=== PATIENT | female | born 1950 | race Caucasian/White ===

== ENCOUNTER 2020-10-13 23:09 | Emergency (ER) | payer MEDICARE, SELFPAY ==
--- NOTE | ~2020-10-13 | XR_ITS ---
EXAMINATION: XR LUMBOSACRAL SPINE CLINICAL INFORMATION: Fall. Pain in the lumbar and coccyx area. COMPARISON: None TECHNIQUE: Three views of the lumbosacral spine. FINDINGS: There is no fracture or subluxation. Vertebral body height and alignment is maintained. Mild disc space narrowing at the lower lumbar spine. Small endplate osteophytes throughout with multilevel facet arthropathy. The sacroiliac joints are symmetric. The visualized portion of the sacrum appears intact. The bowel gas pattern is unremarkable. XR/XR lumbar spine 2-3V IMPRESSION: No fracture or malalignment. Mild to moderate multilevel degenerative changes.
[2020-10-14 00:20] VITALS: BP 152/74; PULSE 107; RESP 18; TEMP 37.6; O2SAT 94; BMI 43.2
--- NOTE | 2020-10-14 00:57 | ED_ITS ---
HPI - Fall General Chief Complaint: Fall Stated Complaint: falling Time Seen by Provider: 10/14/20 00:36 Source: patient Mode of arrival: EMS Limitations: no limitations History of Present Illness HPI Narrative: Patient comes to emergency room complaining of a fall. Patient states her carpet at home is very slippery, patient states she landed on her left side. Did not hit her head, no loss of consciousness, she is not on a blood thinners. Patient complaining of pain in the lumbar area and coccyx. Patient states she was able to turn on her abdomen, get on her knees and crawl but she was unable to get up, therefore called EMS. Patient denies chest pain, no shortness of breath. Related Data Allergies Allergy/AdvReac Type Severity Reaction Status Date / Time alcohol [ALCOHOL] Allergy Intermediate RUBBING Unverified 05/11/20 16:49 ALCOHOL/ UNKNOWN metformin [METFORMIN] Allergy Intermediate DIARRHEA Unverified 05/11/20 16:49 pollen extracts [POLLEN] Allergy Intermediate HEADACHES Unverified 05/11/20 16:49 carisoprodol [From Soma] Allergy Mild HIVES Unverified 05/11/20 16:49 erythromycin base Allergy Unknown UNKNOWN Unverified 05/11/20 16:49 [ERYTHROMYCIN BASE] OYSTERS Allergy Intermediate UNKNOWN Uncoded 05/11/20 16:49 Review of Systems Review of Systems: Constitutional : No Weight loss, No Fever, No Chills, No Night Sweats, No Fatigue, No Malaise ENT/Mouth : No Hearing loss, No Ear Pain, No Nasal Congestion, No Sinus Pain, No Hoarseness, No sore throat, No Rhinorrhea, No Swallowing Difficulty Eyes: No Eye Pain, No Swelling, No Redness, No Foreign Body, No Discharge, No Vision Changes Cardiovascular : No Chest Pain, No SOB, No Dyspnea on Exertion, No Orthopnea, No Edema, No Palpitations Respiratory : No Cough, No Sputum, No Wheezing, No Smoke Exposure, No Dyspnea Gastrointestinal : No Nausea, No Vomiting, No Diarrhea, No Constipation, No abdominal Pain, No Hematochezia, No Melena Genitourinary : no irregular bleeding, No Dysuria, No Urinary Frequency, No Hematuria, No Urinary Incontinence, No Urgency, No Flank Pain, No Urinary Flow Changes, No Hesitancy Musculoskeletal : Complaining of pain in the lumbar area and coccyx, knee pain from crawling Skin : No Skin Lesions, No rash Neuro : No Weakness, No Numbness, No Paresthesias, No Loss of Consciousness, No Dizziness, No Headache Psych : No Anxiety/Panic, No Depression, No SI/HI/AH/VH, No Social Issues, Heme/Lymph: No Bruising, No Bleeding,No Lymphadenopathy Endocrine : No Polyuria, No Polydipsia, No Temperature Intolerance [facility] Past Medical History Medical History (Updated 10/14/20 @ 01:56 by Guerda Shepherd MD) Diabetes Social History Social History Advance Directives: No Physical Exam Vital Signs: Vital Signs: Last Vital Signs Temp 99.7 F 10/14/20 00:20 Pulse 107 H 10/14/20 00:20 Resp 18 10/14/20 00:20 BP 152/74 H 10/14/20 00:20 Pulse Ox 94 10/14/20 00:20 Body Mass Index 43.2 Appearance: Alert. Oriented X3. No acute distress. Eyes: Pupils equal, round and reactive to light. ENT: Pharynx normal. Neck: Normal inspection. Neck supple. No lymph nodes noted. No crepitus CVS: Normal heart rate and rhythm. Pulses normal. Normal S1 and S2 Respiratory: No respiratory distress. Breath sounds normal. No Wheezing. No rales Abdomen: Soft and nontender. No rigidity. No distention. 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 Normal skin color. Normal skin turgor. Extremities: No lower extremity edema. Pain is able to flex and extend bilateral hips and knees. Patient has a chronic rotator cuff injury on the left side. Neuro: Oriented X 3. No motor deficit. No sensory deficit. Moving all extermities. No slurred speech. Course Course Course Narrative: Patient was able to walk to the bathroom unassisted, x-ray negative for fractures. Patient states she has enough pain medication in its at home and does not require prescription. MDM - Fall Lab Data Labs: Lab Results 10/14/20 Range/Units 01:38 POC Glucose 158 H (60-115) mg/dL Imaging Data Lumbar x-ray: Radiologist's impression: There is no fracture or subluxation. Vertebral body height and alignment is maintained. Mild disc space narrowing at the lower lumbar spine. Small endplate osteophytes throughout with multilevel facet arthropathy. The sacroiliac joints are symmetric. The visualized portion of the sacrum appears intact. The bowel gas pattern is unremarkable. XR/XR lumbar spine 2-3V IMPRESSION: No fracture or malalignment. Mild to moderate multilevel degenerative changes. Discharge Plan Discharge Clinical Impression: Fall Qualifiers: Encounter type: initial encounter Qualified Code(s): W19.XXXA - Unspecified fall, initial encounter Lumbar contusion Qualifiers: Encounter type: initial encounter Qualified Code(s): S30.0XXA - Contusion of lower back and pelvis, initial encounter Patient Disposition: Home, Self-Care Instructions: Contusion in Adults (ED) Additional Instructions: Please follow-up with your primary care physician tomorrow. If you have any worsening or new symptoms, please return to the emergency room or call 911
[2020-10-14 01:42] LABS: Glucose, Whole Blood 158 mg/dL (60-115)
[2020-10-14] MEDS: traMADoL HCL 50 MG TABLET PO (02:13)
== END 2020-10-14 03:37 | disposition home or self-care (01) ==
PROVIDERS: Emergency Provider Emergency Medicine; PCP Internal Medicine
DX: S30.0XXA Contusion of lower back and pelvis, initial encounter (principal); W01.0XXA Fall on same level from slipping, tripping and stumbling without subsequent striking against object, initial encounter; Y93.89 Activity, other specified; Y92.019 Unspecified place in single-family (private) house as the place of occurrence of the external cause; Y99.9 Unspecified external cause status
CPT/HCPCS: 72100; 82947; 99283

== ENCOUNTER 2024-10-06 14:59 | Outpatient (AMB) | payer MEDICARE, SELFPAY ==
--- NOTE | 2024-10-06 15:00 | A.OFFVIS_ITS ---
Vital Signs 10/06/24 15:04 Height 5 ft 5 in Weight 242 lb 8.136 oz BMI 40.4 BP 186/84 H Blood Pressure Location Rt brachial Position Sitting Pulse 88 Intake Visit Reasons: Consult, liver cirrosis Intake Note: Alysha presents in the office as a follow up liver cirrhosis. CC: She states that she just had CT scans done and she was told that she has a beginning stages of cirrhosis - she states that she has never drank and when she had her gall bladder removed her labs were abnormal but now she is concerned of her liver. Physician General Practice Required: No Allergies alcohol [ALCOHOL] Allergy (Intermediate, Unverified 10/06/24 15:04) RUBBING ALCOHOL/ UNKNOWN metformin [METFORMIN] Allergy (Intermediate, Unverified 10/06/24 15:04) DIARRHEA pollen extracts [POLLEN] Allergy (Intermediate, Unverified 10/06/24 15:04) HEADACHES carisoprodol [From Soma] Allergy (Mild, Unverified 10/06/24 15:04) HIVES erythromycin base [ERYTHROMYCIN BASE] Allergy (Unknown, Unverified 10/06/24 15:04) UNKNOWN OYSTERS Allergy (Intermediate, Uncoded 10/06/24 15:04) UNKNOWN HPI Comments Details: The patient is a 74-year-old woman with a 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 Here for elevated LFTs and abnormal imaging of the liver. Pt herself does nt have any symptoms to include abdominal pain, nausea, vomiting. Has good appetite. No unintentional weight loss recently. 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 Sister with HCV due to IVDU - . Has known DM, most recent A1c 7.2. has HLD on rosuvastatin. In terms of recent adrenal met, she was determined to be a high risk for surgical resection and she received stereotactic radiation in June 2024. The adrenal lesion has decreased in size and she has no other evidence of active atypical carcinoid tumor. [facility] Medical History (Updated 10/20/24 @ 17:47 by Gricelda Robledo MD) Diabetes Surgical History (Updated 10/06/24 @ 15:04 by SAMMY Melchor) Hx of colonoscopy History of esophagogastroduodenoscopy (EGD) Review of Systems Const All systems reviewed & are unremarkable except as noted in HPI and below Physical Exam Vital Signs: Last Vital Signs Pulse 88 10/06/24 15:04 BP 186/84 H 10/06/24 15:04 BMI result Body Mass Index 40.4 No apparent distress Nonicteric Abdomen soft, nondistended, palpable hepatomegaly Alert and oriented x3, normal gait Assessment & Plan Assessment & Plan (1) Elevated LFTs: Code(s): R79.89 - Other specified abnormal findings of blood chemistry Category: Medical (2) Hepatomegaly: Code(s): R16.0 - Hepatomegaly, not elsewhere classified (3) Carcinoid tumor: Code(s): D3A.00 - Benign carcinoid tumor of unspecified site Category: Medical Plan Reviewed with the patient that will need workup for evaluation of chronic liver disease. We will also get dedicated ultrasound. Given her underlying history of carcinoid tumor, low threshold to obtain biopsy if below workup negative. Plan: -labs as below -ultrasound abdomen -follow-up in 4-6 weeks Orders: Orders Complete Blood Count no Diff 10/06/24 - Other specified abnormal findings of blood chemistry Ferritin 10/06/24 - Other specified abnormal findings of blood chemistry Hemoglobin A1c 10/06/24 - Other specified abnormal findings of blood ch emistry Hepatitis A IgG 10/06/24 - Other specified abnormal findings of blood chemistry Hepatitis B Core Antibody 10/06/24 - Other specified abnormal findings of blood chemistry Hepatitis B Surface Antibody 10/06/24 - Other specified abnormal findings of blood chemistry Hepatitis C Antibody 10/06/24 - Other specified abnormal findings of blood chemistry HIV Ab/Ag 10/06/24 - Other specified abnormal findings of blood chemistry Immunoglobulin A 10/06/24 - Other specified abnormal findings of blood chemistry Immunoglobulin G 10/06/24 - Other specified abnormal findings of blood chemistry Phosphatidylethanol, Blood 10/06/24 - Other specified abnormal findings of blood chemistry Transglutaminase IgA 10/06/24 - Other specified abnormal findings of blood chemistry TSH reflex Free T4 10/06/24 - Other specified abnormal findings of blood chemistry Alpha 1 Anti-trypsin 10/06/24 - Other specified abnormal findings of blood chemistry US abdomen complete 10/06/24 - Other specified abnormal findings of blood chemistry INDER Reflex Titer and Pattern 10/06/24 - Other specified abnormal findings of blood chemistry Ceruloplasmin 10/06/24 - Other specified abnormal findings of blood chemistry Comprehensive Met. Panel 10/06/24 - Other specified abnormal findings of blood chemistry Gamma Glutamyl Transpeptidase 10/06/24 - Other specified abnormal findings of blood chemistry Hepatitis B Surface Antigen 10/06/24 - Other specified abnormal findings of blood chemistry IRON PROFILE 10/06/24 - Other specified abnormal findings of blood chemistry Lipid Panel 10/06/24 - Other specified abnormal findings of blood chemistry Liver Kidney Microsomal Ab 10/06/24 - Other specified abnormal findings of blood chemistry Mitochondrial Antibody 10/06/24 - Other specified abnormal findings of blood chemistry Smooth Muscle Antibody 10/06/24 - Other specified abnormal findings of blood chemistry Coding Level of Care Code New Pt Level 5 (42401) Complex EM visit Add On G2211 Diagnoses Elevated LFTs Hepatomegaly R16.0 Carcinoid tumor D3A.00
[2024-10-06 15:04] VITALS: BP 186/84; PULSE 88; BMI 40.4
--- OUTSIDE RECORDS SUMMARY | 2024-10-06 16:09 | XMS_ITS ---
Author Organization 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 Generated for Printi ng/Baldemarg/eTransmitting on:?10/06/2024 04:09 PM EST
--- OUTSIDE RECORDS SUMMARY | 2024-10-06 16:09 | XMS_ITS ---
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 Name Role Phone Jose Mahmood MD Primary Care Provider Nelda Louise [phone] Encounters Encounter Location Date Provider Diagnosis [address] [address] 07/21/2024 Nelda Dumont Plan Of Treatment Next Appt Details Provider Name:Mackenzie barnard, 10/22/2024 12:15:00 PM, [address] [place], [address], Progress Notes * Olivia DAVISh LDOB:1949 (74 yo F)Acc No.[id number]:07/21/2024 Progress Note Patient:?Alysha DAVIS Provider:?Nelda Dumont DPM :1950???Age:74 Y???Sex:Female D ate:07/21/2024 Address:[address] [place] [address], [place], [place] Pcp:Jose Mahmood MD Subjective: * Chief Complaints: * ??? * Medical History:? Objective: * Vitals:? Assessment: Plan: * Treatment: * Images: * The named appointment provid er may or may not be the originator of this progress note, and it is not deemed complete until electronically signed by the appointment provider. Sign off status: Pending * Provider:?Nelda Dumont DPM Date:?1 09/20/2023 Generated for Mulugeta gudino/Josi/Bharat on:?10/06/2024 04:09 PM EST
--- OUTSIDE RECORDS SUMMARY | 2024-10-06 16:09 | XMS_ITS ---
[facility] Address [address] [place] [address] Care Team Providers Care Seasonal Warehouse Associate Name Role Phone Jose Mahmood MD Primary Care Provider Nelda Louise Unavailable [phone] Allergies Allergen (clinical drug ingredient) Drug/Non Drug Allergy documented on EMR Reaction Allergy Type Onset Date Status animals (uncoded) Unknown Allergy Ac tive erythromycin Erythromycin vomit Drug Allergy A ctive metformin Metformin HCl Unknown Drug Allergy Act ar Oyster Shell hives Drug Allergy Acti ve Seasonale Unknown Drug Allergy Active carisoprodol Soma hives Drug Allergy Acti ve Alcohol hives Drug Allergy Active REASON FOR VISIT At Risk Footcare Medications Medication SIG (Take, Route, Frequency, Duration) Notes Start Date End Date Status glipiZIDE ER 10 MG Orally Once a day Active Furosemide Active Losartan Potassium 100 MG 1 tablet Orall y Once a day for 30 day(s) Active Gabapentin 100 MG 4 capsules Orally three times a day Active Metoprolol Succinate ER 25 MG 1 tablet Orally Once a day for 30 day(s) Active oxyCODONE-Acetaminophen 5-325 MG 1 tablet as needed Orally every 6 hrs Active Tresiba 100 UNIT/ML as directed Active Montelukast Sodium 10 MG 1 tablet Orally Once a day for 30 day(s) Active albuterol Active Allopurinol 300 MG 1 tablet Orally Once a day for 30 day(s) Active Prochlorperazine Maleate 10 MG 1 tablet Orally Three times a day for 30 day(s) Not-Taking Doxycycline Monohydrate 100 MG 1 capsule Orally Once a day for 10 days Not-Taking Doxycycline Hyclate 100 MG 1 capsule Ora lly Once a day for 10 day(s) Not-Taking Breztri Aerosphere A ctive Extra Depth Diabetic Shoes with 3 Pair Custom heat-molded multi-density innersoles for 1 year Dx: Active Pantoprazole Sodium 40 MG 1 tablet Orall y Once a day for 30 day(s) Not-Taking Brexanolone Not-Taki ng NovoLIN N 100 UNIT/ML as directed Subcutaneous Not-Taking LORazepam 0.5 MG 1 tablet as needed Orally every 6 hrs Not-Taking HYDROcodone-Acetaminophen 5-325 MG 1 tablet as needed Orally every 6 hrs Not-Taking Rosuvastatin Calcium 5 MG 1 tablet Orall y Once a day for 30 day(s) Active Night Splint AFO - L1930 as directed Not-Taking Social History Tobacco Use: Social History Observation Description Date Details (start date - stop date) Never Smoker NA - NA Tobacco Use/Smoking Question Answer Notes Are you a: nonsmoker Additional Findings: Tobacco Non-User Current no n-smoker Alcohol Screen Question Answer Notes Did you have a drink containing alcohol in the p ast year? No Points 0 Interpretation Negative Tobacco use other than smoking: Question Answer Notes Are you an other tobacco user? No Problems Problem Type SNOMED Code ICD Code Onset Dates Problem Status W/U Status Risk Notes Problem Polyneuropathy due to diabetes mellitus type I (926081816) Type 1 diabetes mellitus with diabetic polyneuropathy (E10.42) Active confirmed Vital Signs Height 5ft 5in in 08/05/2024 Weight 245 lbs 08/05/2024 BMI 40.77 kg/m2 08/05/2024 Procedures Procedure Date Ordered Date Performed Result Body Sit e 19622-WOFLSZQ NAIL, 6 OR MORE 08/05/2024 N/A 48661-IUEW SKIN LESIONS, OVER 4 08/05/2024 N/A Encounters Encounter Location Date Provider Diagnosis [facility] [address] [place] [address] 08/05/2024 Nelda Dumont Type 2 diabetes mellitus with diabetic polyneuropathy E11.42 and Tinea unguium B35.1 Assessments Encounter Date Diagnosis (ICD Code) Assessment Notes Treatment Notes Treatment Clinical Notes Section Notes 08/05/2024 Type 2 diabetes mellitus with diabetic polyneuropathy (ICD-10 - E11.42) 08/05/2024 Tinea unguium (ICD-10 - B35.1) Plan Of Treatment Pending Test Test Name Order Date [id number]-FOPGZUL NAIL, 6 OR MORE 08/05/2024 23782-WGYZ SKIN LESIONS, OVER 4 08/05/20 24 Next Appt Details Follow Up: prn, Reason: Provider Name:Mackenzie Barnard Vaibhav barnard, 10/22/2024 12:15:00 PM, [address] [place] [address], [id number], Procedure Notes * Category Sub-Category Detail Notes Debride Nail 6-10 Nail debridement Due to the cl inical pathology outlined in the exam findings, performance of this nail treatment is medically necessary as its management by an unskilled/untrained nonprofessional would put this patients foot and overall health at risk. Therefore, debridement to affected nail(s), as described in exam (T9, T8, T7, T6, T4, T3, T2, T1 ), was performed exclusively by the physician of record to reduce/remove overall nail length, girth, thickness, subungual debris, and necrotic tissue, by manual and/or electrical means through the use of a nail nipper and/or dremel-type miter grinder operator, to a more viable healthy nail plate or bed tissue 6-10 nails in total. Silver nitrate was used for any petechial bleeding as necessary. Definitive antifungal treatment options, both pharmaceutical and surgical, have been reviewed and discussed with the patient. The patient solely prefers the use of intermittent/as needed professional debridement services for their nail condition and understands the need for additional periodic treatments to maintain effectiveness in symptomatic relief - 79910 Keratoma Treatment Parring or Cutting o f Benign Hyperkeratotic Lesion(s) (-57) More than 4 Lesions - Due to the at risk nature of the patients medical condition as documented in the exam findings, performance of this keratoderma treatment is medically necessary as its management by an unskilled/untrained nonprofessional would put this patients foot and overall health at risk. Therefore, the benign hyperkeratotic lesions, ( 6) in total, locations as stated and described in the exam ( medial IPJ TA, T5, plantar heels B/L, sub 1st 5th metatarsal head B/L), were pared, and/or cut utilizing a sterile 15 blade, tissue nippers, and/or power dremel instrumentation by the physician of record - [id number] Progress Notes * Alysha DAVIS LDOB:1949 (74 yo F)Acc No.[id number]:08/05/2024 Progress Note Patient:Alysha SANTANA Provider:?Nelda Dumont DPM :1950???Age:74 Y???Sex:Female D ate:08/05/2024 Address:[address] [place], [place] [id number] Pcp:Jose Mahmood MD Subjective: * Chief Complaints: * ???At Risk Footcare * HPI: ???At Risk footcare:?Pt States Last PCP Visit:?Date?08/05/2024 * ROS:?General/Constitutional:?Nausea?denies.?Vomiting?denies.?Hunger Thirst?denies.?Loss appetite?denies.?Chills?denies.?Fatigue?denies.?Fever?denies.?Night Sweats?denies.?Unexplained weight loss?denies.?Unexplained weight gain?denies.?HEENTM:?Dentures?denies.?Dizziness?denies.?Glasses/contacts?denies.?Retinopathy?de nies.?Blurred/double vision?denies.?TMJ?denies.?Discharge/drainage?denies.?Implants?denies.?Sore throat?denies.?Dental implants?denies.?Hard of hearing ?denies.?Difficulty chewing/swallowing/speaking?denies.?Nose bleeds?denies.?Sore mouth?denies.?Respiratory:?On Oxygen?denies.?Pneumonia/pleurisy?denies.?Bronchitis?denies.?Emphysema?denies.?C oughing?denies.?Cough blood?denies.?Shortness of breath?denies.?Wheezing?denies.?Cardiovascular:?Pacemaker?denies.?MVP?denies.?WPW?denies.?CHF?denies.?Heart attack?denies.?Septal defect?denies.?Rapid beat?denies.?Chest pain ?denies.?Atrial Fib.?denies.?Murmur/Palpitations?denies.?Gastrointestinal:?Hemorrhoids?denies.?Stomach/Abdominal pain?denies.?Dark blood stool?denies.?Irritable bowel ?denies.?Constipation?denies.?Diarrhea?denies.?Hematology:?Swelling?denies.?Clots?denies.?Varicose Veins?denies.?Bruising?denies.?Bleeding problem?denies.?Genitourinary:?Blood urine?denies.?Frequent/Painfu/urination/bladder control?denies.?Kidney stones?denies.?Infection (UTI)?denies.?Nephropathy?denies.?sex trans dis (STD)?denies.?Prostate?denies.?Musculoskeletal:?Hammertoes?denies.?Bunions?denies.?Back Pain?denies.?Muscle Cramps/ Resting?denies.?Muscle cramps / walking?denies.?Generalized aches and pains?denies.?Weakness?denies.?Integ.:?Kay?denies.?Scars?denies.?Corns/calluses?denies.?Ingrown nails?admits.?Painful nails?denies.?Open Sores?denies.?Rashes?denies.?Neurologic:?Difficulty sleeping?denies.?Brain disorder?denies.?Numbness?denies.?Balance trouble?denies.?Confusion?denies.?Fainting/blackouts?denies.?Tingling?denies.?Tr emors?denies.? * Medical History:? * Surgical History:?back surge ry L4-5 1980shattered left ankle 1990pins removed 1991gall bladder 2003kidney procedure 2012neck plate and screws 2012right rotator cuff 2013kidney procedure 2016xecptic 2016left kidney removed 14471 back surgeries 2017right upper lung removed 2017bone growth removed upper and lower jaw 2019biopsy of chest 2019right hand carpal tunnel 2019porta cath 2019chemo radiation 2019Severs antibiotic therapy 2019tens untit placement spinal stem shoulder replacement Carple tunnel 06/25/2022 * Hospitalization/Major Diagno stic Procedure:?[facility] night stay 10/13/2020 * Family History:?Mother: yola tello?Father: alive, diagnosed with Unspecified essential hypertension, Unspecified heart disease, Unspecified cerebral artery occlusion with cerebral infarction.? * Social History:?Tobacco Use:?Tobacco Use/Smoking?Are you a:?nonsmoker ?Additional Findings: Tobacco Non-User?Current non-smoker ?Tobacco use other than smoking?Are you an other tobacco user??No ???Drugs/Alcohol:?Drugs?Have you used drugs other than those for medical reasons in the past 12 months??No ?Alcohol Screen?Did you have a drink containing alcohol in the past year??No ?Points?0 ?Interpretation?Negative ???Miscellaneous:?Caffeine: yes, frequency:, 2-3 cups per day. ?Children: no. ?Exercise: no. ?Marital status: single. 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 * Medications:?TakingExtra Dep th Diabetic Shoes with 3 Pair Custom heat-molded multi-density innersoles for 1 year Dx: Breztri Aerosphere Tresiba 100 UNIT/ML Solution as directed oxyCODONE-Acetaminophen 5-325 MG Tablet 1 tablet as needed Orally every 6 hrs Montelukast Sodium 10 MG Tablet 1 tablet Orally Once a day Allopurinol 300 MG Tablet 1 tablet Orally Once a day albuterol Furosemide glipiZIDE ER 10 MG Tablet Extended Release 24 Hour Orally Once a day Gabapentin 100 MG Capsule 4 capsules Orally three times a day Losartan Potassium 100 MG Tablet 1 tablet Orally Once a day Metoprolol Succinate ER 25 MG Tablet Extended Release 24 Hour 1 tablet Orally Once a day Rosuvastatin Calcium 5 MG Tablet 1 tablet Orally Once a day Taking Extra Depth Diabetic Shoes with 3 Pair Custom heat-molded multi-density innersoles for 1 year Dx: Taking Breztri Aerosphere Taking Tresiba 100 UNIT/ML Solution as directed Taking oxyCODONE-Acetaminophen 5-325 MG Tablet 1 tablet as needed Orally every 6 hrs Taking Montelukast Sodium 10 MG Tablet 1 tablet Orally Once a day Taking Allopurinol 300 MG Tablet 1 tablet Orally Once a day Taking albuterol Taking Furosemide Taking glipiZIDE ER 10 MG Tablet Extended Release 24 Hour Orally Once a day Taking Gabapentin 100 MG Capsule 4 capsules Orally three times a day Taking Losartan Potassium 100 MG Tablet 1 tablet Orally Once a day Taking Metoprolol Succinate ER 25 MG Tablet Extended Release 24 Hour 1 tablet Orally Once a day Taking Rosuvastatin Calcium 5 MG Tablet 1 tablet Orally Once a day Not-Taking/PRNNight Splint AFO - L1930 as directed Brexanolone NovoLIN N 100 UNIT/ML Suspension as directed Subcutaneous HYDROcodone-Acetaminophen 5-325 MG Tablet 1 tablet as needed Orally every 6 hrs LORazepam 0.5 MG Tablet 1 tablet as needed Orally every 6 hrs Pantoprazole Sodium 40 MG Tablet Delayed Release 1 tablet Orally Once a day Prochlorperazine Maleate 10 MG Tablet 1 tablet Orally Three times a day Doxycycline Hyclate 100 MG Capsule 1 capsule Orally Once a day Doxycycline Monohydrate 100 MG Capsule 1 capsule Orally Once a day Medication List reviewed and reconciled with the patientNot-Taking/PRN Night Splint AFO - L1930 as directed Not-Taking/PRN Brexanolone Not-Taking/PRN NovoLIN N 100 UNIT/ML Suspension as directed Subcutaneous Not-Taking/PRN HYDROcodone-Acetaminophen 5-325 MG Tablet 1 tablet as needed Orally every 6 hrs Not-Taking/PRN LORazepam 0.5 MG Tablet 1 tablet as needed Orally every 6 hrs Not-Taking/PRN Pantoprazole Sodium 40 MG Tablet Delayed Release 1 tablet Orally Once a day Not-Taking/PRN Prochlorperazine Maleate 10 MG Tablet 1 tablet Orally Three times a day Not-Taking/PRN Doxycycline Hyclate 100 MG Capsule 1 capsule Orally Once a day Not-Taking/PRN Doxycycline Monohydrate 100 MG Capsule 1 capsule Orally Once a day Medication List reviewed and reconciled with the patient * Allergies:?Erythromycin: vom itOyster Shell: hivesSoma: hivesMetformin HClanimalsSeasonaleAlcohol: hivesyes[Allergies Verified] Objective: * Vitals:?Ht: 5ft 5in, Wt:245, BMI:40.77, Shoe size: 10-11, BS: 135, Ht-cm: 165.1 cm, Wt-k.13 kg. * Examination: ???Ophthalmology Referral: ?DIABETES EYE EXAM?Neurological: ?SENSORY:? Neurological exam demonstrates, reduced light touch sensation, reduced sharp/dull pin prick discrimination , B/L, 5.07 monofilament test performed at plantar aspects of 5 varied sites per foot shows sensation, reduced , B/L.?Nails: ?NAILS are:?Elongated, overgrown, dystrophic, lytic, greater than 3mm thick, discolored and friable with crumbly malodorous subungual debris, T9, T8, T7, T6, T4, T3, T2, T1.?Dermatologic: ?SKIN FINDINGS:?Skin exam reveals Keratotic lesion(s) located at medial IPJ TA, T5, plantar heels B/L, sub 1st 5th metatarsal head B/L.?Vascular: ?DP PULSES(B):??2/4, B/L.?PT PULSES(B):? 1/4, B/L.?CAPILLARY FILL TIME:?3 secs. per digit, B/L.?TROPHIC CONDITION-TEXTURE/ELASTICITY/TURGOR/HAIR GROWTH(B):?normal, B/L.?TEMPERTURE GRADIENT(C):?warm to cool, proximal to distal, B/L.?PIGMENTATION:?normal, B/L.?EDEMA(C):? 2/4, Left, Ankle(s).?TELANGECTASIA:?absent.?VARICOSITIES:?absent.?Orthopedic: ?MUSCLE STRENGTH:?5/5 all groups in a symmetrical fashion, B/L.?General Examination: ?GENERAL APPEARANCE:?Reveals a pleasant, alert, well nourished, well- developed, well hydrated individual, who demonstrates proper attention to hygiene/body habitus, and is in no acute distress, Pt serves as own historian for office visit today.?ORIENTED:?person, place, and time.? Assessment: * Assessment: 1.?Type 2 diabetes mellitus with diabetic polyneuropathy - E11.42 (Primary)???2.?Tinea unguium - B35.1??? Plan: * Treatment: * Procedures:?Debride Nail 6-10:?Nail debridement?Due to the clinical pathology outlined in the exam findings, performance of this nail treatment is medically necessary as its management by an unskilled/untrained nonprofessional would put this patients foot and overall health at risk. Therefore, debridement to affected nail(s), as described in exam (T9, T8, T7, T6, T4, T3, T2, T1 ), was performed exclusively by the physician of record to reduce/remove overall nail length, girth, thickness, subungual debris, and necrotic tissue, by manual and/or electrical means through the use of a nail nipper and/or dremel-type miter grinder operator, to a more viable healthy nail plate or bed tissue 6-10 nails in total. Silver nitrate was used for any petechial bleeding as necessary. Definitive antifungal treatment options, both pharmaceutical and surgical, have been reviewed and discussed with the patient. The patient solely prefers the use of intermittent/as needed professional debridement services for their nail condition and understands the need for additional periodic treatments to maintain effectiveness in symptomatic relief - 84133.?Keratoma Treatment:?Parring or Cutting of Benign Hyperkeratotic Lesion(s)?(-57) More than 4 Lesions - Due to the at risk nature of the patients medical condition as documented in the exam findings, performance of this keratoderma treatment is medically necessary as its management by an unskilled/untrained nonprofessional would put this patients foot and overall health at risk. Therefore, the benign hyperkeratotic lesions, ( 6)? in total, locations as stated and described in the exam (?medial IPJ TA, T5, plantar heels B/L, sub 1st 5th metatarsal head B/L), were pared, and/or cut utilizing a sterile 15 blade, tissue nippers, and/or power dremel instrumentation by the physician of record - [id number].? * Procedure Codes:?55622 DEBRI DE NAIL, 6 OR MORE, Modifiers: XS 03071 TRIM SKIN LESIONS, OVER 4, Modifiers: XS * Follow Up:?prn * Images: * Sign off status: Completed true * Provider:?Nelda Dumont DPM Date:?10/06/2023 Generated for Mulugeta gudino/Josi/Bharat on:?10/06/2024 04:09 PM EST History and Physical Notes * HPI (History of Present Illness) Category Sub-Category Detail Notes Category Not es At Risk footcare Pt States Last PCP Visit: Date: 4 Examination Category Sub-Category Detail Notes Category Not es Neurological SENSORY: Neurological exa m demonstrates, reduced light touch sensation, reduced sharp/dull pin prick discrimination , B/L, 5.07 monofilament test performed at plantar aspects of 5 varied sites per foot shows sensation, reduced , B/L Dermatologic SKIN FINDINGS: Skin exam reveal s Keratotic lesion(s) located at medial IPJ TA, T5, plantar heels B/L, sub 1st 5th metatarsal head B/L Orthopedic MUSCLE STRENGTH: 5/5 all groups in a symmetrical fashion, B/L General Examination GENERAL APPEARANCE: Reveals a pleasant, alert, well nourished, well-developed, well hydrated individual, who demonstrates proper attention to hygiene/body habitus, and is in no acute distress, Pt serves as own historian for office visit today ORIENTED: person, place, and t ranjeet Ophthalmology Referral DIABETES EYE EXAM Diabetic Retinopa thy Screening:: Yes Findings of Diabetic Eye Exam:: no retin opathy Vascular DP PULSES (B): 2/4, B/L PT PULSES (B): 1/4, B/L CAPILLARY FILL TIME: 3 secs. per digit, B/L TEMPERTURE GRADIENT (C): warm to cool, p roximal to distal, B/L TROPHIC CONDITION-TEXTURE/ELASTICITY/TURGOR/HAIR GROWTH (B): normal, B/L EDEMA (C): 2/4, Left, Ankle(s) TELANGECTASIA: absent VARICOSITIES: absent PIGMENTATION: normal, B/L Nails NAILS are: Elongated, overg rown, dystrophic, lytic, greater than 3mm thick, discolored and friable with crumbly malodorous subungual debris, T9, T8, T7, T6, T4, T3, T2, T1
--- OUTSIDE RECORDS SUMMARY | 2024-10-06 16:09 | XMS_ITS | Patient Health Record ---
[facility] Address [address] [place] [address] Care Team Providers Care Food Service Specialist Name Role Phone Ela BENTLEY, Jose Primary Care Provider Nelda Louise Unavailable [phone] José Serrano Unavailable [phone] Allergies Allergen (clinical drug ingredient) Drug/Non Drug Allergy documented on EMR Reaction Allergy Type Onset Date Status animals (uncoded) Unknown Allergy Ac tive erythromycin Erythromycin vomit Drug Allergy A ctive metformin Metformin HCl Unknown Drug Allergy Act ar Oyster Shell hives Drug Allergy Acti ve Seasonale Unknown Drug Allergy Active carisoprodol Soma hives Drug Allergy Acti ve Alcohol hives Drug Allergy Active Reason For Referral No Information Medications Medication SIG (Take, Route, Frequency, Duration) Notes Start Date End Date Status glipiZIDE ER 10 MG Orally Once a day Active Prochlorperazine Maleate 10 MG 1 tablet Orally Three times a day for 30 day(s) Not-Taking Furosemide Active Pantoprazole Sodium 40 MG 1 tablet Orall y Once a day for 30 day(s) Not-Taking Losartan Potassium 100 MG 1 tablet Orall y Once a day for 30 day(s) Active Doxycycline Monohydrate 100 MG 1 capsule Orally Once a day for 10 days Not-Taking Gabapentin 100 MG 4 capsules Orally three times a day Active Doxycycline Hyclate 100 MG 1 capsule Ora lly Once a day for 10 day(s) Not-Taking Breztri Aerosphere A ctive Rosuvastatin Calcium 5 MG 1 tablet Orall y Once a day for 30 day(s) Active Extra Depth Diabetic Shoes with 3 Pair Custom heat-molded multi-density innersoles for 1 year Dx: Active Metoprolol Succinate ER 25 MG 1 tablet Orally Once a day for 30 day(s) Active oxyCODONE-Acetaminophen 5-325 MG 1 tablet as needed Orally every 6 hrs Active Brexanolone Not-Taki ng Tresiba 100 UNIT/ML as directed Active Night Splint AFO - L1930 as directed Not-Taking Montelukast Sodium 10 MG 1 tablet Orally Once a day for 30 day(s) Active NovoLIN N 100 UNIT/ML as directed Subcutaneous Not-Taking albuterol Active LORazepam 0.5 MG 1 tablet as needed Orally every 6 hrs Not-Taking Allopurinol 300 MG 1 tablet Orally Once a day for 30 day(s) Active HYDROcodone-Acetaminophen 5-325 MG 1 tablet as needed Orally every 6 hrs Not-Taking Immunizations Vaccine Route Administration Date Status Comme nts COVID-19 Pfizer BioNT[employer] Vaccine Unknown 01/10/2021 Administered 1st 11/21/20,2020 2020,2021 Influenza Unknown 05/25/2022 Administered Influenza Unknown 07/25/2023 Administered Social History Tobacco Use: Social History Observation [...] Polyneuropathy due to diabetes mellitus type I (099235991) Type 1 diabetes mellitus with diabetic polyneuropathy (E10.42) Active confirmed Problem Chronic ulcer of foot (042491221) Non-pressure chronic ulcer of other part of left foot with fat layer exposed (L97.522) Active confirmed Problem Localized, primary osteoarthritis of the ankle and/or foot (972898776) Primary osteoarthritis, left ankle and foot (M19.072) Active confirmed Problem Non-pressure chronic ulcer of other part of left foot limited to breakdown of skin (L97.521) Active confirmed Problem Acquired hammer toe of right foot (2435431146910795 ) Other hammer toe(s) (acquired), right foot (M20.41) Active confirmed Problem Acquired hammer toe of left foot (5122725123556299 ) Other hammer toe(s) (acquired), left foot (M20.42) Active confirmed Problem Polyneuropathy due to type 2 diabetes mellitus (706945292) Type 2 diabetes mellitus with diabetic polyneuropathy (E11.42) Active confirmed Vital Signs Blood pressure diastolic 73 mm Hg 12/17/2023 Height 5ft 5in in 08/05/2024 Blood pressure systolic 120 mm Hg 12/17/2023 Weight 245 lbs 08/05/2024 BMI 40.77 kg/m2 08/05/2024 Procedures Procedure Date Ordered Date Performed Result Body Sit e 89811-CRBQTIS SKIN/TISSUE 11/05/2023 N/A 96716-DUXJTQM NAIL, 6 OR MORE 08/05/2024 N/A 80752-EAPK SKIN LESIONS, OVER 4 08/05/2024 N/A Encounters Encounter Location Date Provider Diagnosis [address] [address] 10/22/2023 José Serrano Ingrowing nail L60.[address] [address] 11/05/2023 José Serrano Non-pressure chronic ulcer of other part of left foot with fat layer exposed L97.[address] [address] 12/17/2023 José Serrano Tinea unguium B35.1 ; Type 2 diabetes mellitus with diabetic polyneuropathy E11.42 ; Pain in right toe(s) M79.674 ; Pain in left toe(s) M79.675 ; Primary osteoarthritis, left ankle and foot M19.072 ; Other hammer toe(s) (acquired), left foot M20.42 ; Other hammer toe(s) (acquired), right foot M20.41 ; Plantar fascial fibromatosis M72.2 ; Metatarsalgia, left foot M77.42 and Ingrowing nail L60.[address] [address] 03/18/2024 José Serrano Tinea unguium B35.1 ; Type 2 diabetes mellitus with diabetic polyneuropathy E11.42 ; Pain in right toe(s) M79.674 ; Pain in left toe(s) M79.675 ; Primary osteoarthritis, left ankle and foot M19.072 ; Other hammer toe(s) (acquired), left foot M20.42 ; Other hammer toe(s) (acquired), right foot M20.41 ; Plantar fascial fibromatosis M72.2 ; Metatarsalgia, left foot M77.42 and Ingrowing nail L60.[address] [address] 05/20/2024 José Serrano Tinea unguium B35.1 ; Type 2 diabetes mellitus with diabetic polyneuropathy E11.42 ; Pain in right toe(s) M79.674 ; Pain in left toe(s) M79.675 ; Primary osteoarthritis, left ankle and foot M19.072 ; Other hammer toe(s) (acquired), left foot M20.42 ; Other hammer toe(s) (acquired), right foot M20.41 ; Plantar fascial fibromatosis M72.2 ; Metatarsalgia, left foot M77.42 and Ingrowing nail L60.[address] [address] 08/05/2024 Nelda Dumont Type 2 diabetes mellitus with diabetic polyneuropathy E11.42 and Tinea unguium B35.[address] [address] 06/30/2024 Nelda Dumont Assessments Encounter Date Diagnosis (ICD Code) Assessment Notes Treatment Notes Treatment Clinical Notes Section Notes 10/22/2023 Ingrowing nail (ICD-10 - L60.0) 11/05/2023 Non-pressure chronic ulcer of other part of left foot with fat layer exposed (ICD-10 - L97.522) 12/17/2023 Tinea unguium (ICD-10 - B35.1) 12/17/2023 Type 2 diabetes mellitus with diabetic polyneuropathy (ICD-10 - E11.42) 03/18/2024 Tinea unguium (ICD-10 - B35.1) 03/18/2024 Type 2 diabetes mellitus with diabetic polyneuropathy (ICD-10 - E11.42) 05/20/2024 Tinea unguium (ICD-10 - B35.1) 05/20/2024 Type 2 diabetes mellitus with diabetic polyneuropathy (ICD-10 - E11.42) 08/05/2024 Type 2 diabetes mellitus with diabetic polyneuropathy (ICD-10 - E11.42) 08/05/2024 Tinea unguium (ICD-10 - B35.1) 05/20/2024 Pain in right toe(s) (ICD-10 - M79.674) 03/18/2024 Pain in right toe(s) (ICD-10 - M79.674) 12/17/2023 Pain in right toe(s) (ICD-10 - M79.674) 12/17/2023 Pain in left toe(s) (ICD-10 - M79.675) 03/18/2024 Pain in left toe(s) (ICD-10 - M79.675) 05/20/2024 Pain in left toe(s) (ICD-10 - M79.675) 05/20/2024 Primary osteoarthritis, 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) 03/18/2024 Primary osteoarthritis, 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) 12/17/2023 Primary osteoarthritis, 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) 12/17/2023 Other hammer toe(s) (acquired), left foot (ICD-10 - M20.42) 03/18/2024 Other hammer toe(s) (acquired), left foot (ICD-10 - M20.42) 05/20/2024 Other hammer toe(s) (acquired), left foot (ICD-10 - M20.42) 03/18/2024 Other hammer toe(s) (acquired), right foot (ICD-10 - M20.41) 05/20/2024 Other hammer toe(s) (acquired), right foot (ICD-10 - M20.41) 12/17/2023 Other hammer toe(s) (acquired), right foot (ICD-10 - M20.41) 12/17/2023 Plantar fascial fibromatosis (ICD-10 - M72.2) 05/20/2024 Plantar fascial fibromatosis (ICD-10 - M72.2) 03/18/2024 Plantar fascial fibromatosis (ICD-10 - M72.2) 03/18/2024 Metatarsalgia, left foot (ICD-10 - M77.42) 05/20/2024 Metatarsalgia, left foot (ICD-10 - M77.42) 12/17/2023 Metatarsalgia, left foot (ICD-10 - M77.42) 03/18/2024 Ingrowing nail (ICD-10 - L60.0) 12/17/2023 Ingrowing nail (ICD-10 - L60.0) 05/20/2024 Ingrowing nail (ICD-10 - L60.0) Plan Of Treatment Pending Test Test Name Order Date X ray : Foot, left 3V 03/29/2020 94149-DCVOKGG NAIL, 6 OR MORE 08/05/2024 18822-KBKKLES SKIN/TISSUE 05/29/2023 73549-HIJQEJV SKIN/TISSUE 11/05/2023 70652-APJI SKIN LESIONS, OVER 4 08/05/20 24 78924-OOJP SKIN LESIONS, OVER 4 08/03/20 20 11436-OWNW SKIN LESIONS, OVER 4 10/18/19 21 19453-ZMMR SKIN LESIONS, OVER 4 01/11/20 21 78567-EQNL SKIN LESIONS, OVER 4 03/26/20 21 94164-GZYX SKIN LESIONS, OVER 4 05/31/20 21 90242-QVKE SKIN LESIONS, 2 TO 4 06/28/20 19 58965-YDKW SKIN LESIONS, 2 TO 4 09/22/19 20 99863-OBZA SKIN LESIONS, 2 TO 4 11/24/19 20 35549-SCEY SKIN LESIONS, 2 TO 4 01/26/20 20 13896-QYRQ SKIN LESIONS, 2 TO 4 03/29/20 20 89408-CLVM SKIN LESIONS, 2 TO 4 06/01/20 Next Appt Details Provider Name:Mackenzie barnard, 10/22/2024 12:15:00 PM, [address] [place] [address], [phone], Insurance Providers Payer Name Payer Address Payer Phone Subscriber Number Group Number Insured Name Patient Relationship to Insured Coverage Start Date Coverage End Date Medicare [employer] [facility] [employer] [address] [place] [address] [id number] SantoshkaceyAlysha Self - patient is the insured [employer] [address] [place] [address] [id number] [place]ad[place] Alysha Self - patient is the insured Medical (General) History Medical History History ICD Code Arthritis Cancer Diabetic type ll Gall bladder problems High blood pressure Numbness Reflux ( GERD) Measles Mumps Chicken pox Joint implants/screws Transfusions asthma Neuropathy Surgical History Surgery Date(Month/Year) back surgery L4-5 1979 shattered left ankle 1989 pins removed 1990 gall bladder 2002 kidney procedure 2012 neck plate and screws 2012 right rotator cuff 2013 kidney procedure 2016 xecptic 2016 left kidney removed 2016 2 back surgeries 2017 right upper lung removed 2017 bone growth removed upper and lower jaw 2019 biopsy of chest 2019 right hand carpal tunnel 2019 roberto carlos cath 2019 chemo radiation 2019 Severs antibiotic therapy 2019 tens untit placement spinal stem shoulder replacement 05/2021 L Carple tunnel 06/25/2022 Hospitalization History Reason Date(Month/Year) [facility] i night stay 10/13/2020
--- OUTSIDE RECORDS SUMMARY | 2024-10-06 16:09 | XMS_ITS | Continuity of Care Document ---
Author Organization [facility] Dung Prudencio lt Address [address] [place] [id number]- Care Team Providers Care Bi Lead Name Role Phone Ela BENTLEY, Jose Springer Primary Care Physician [id number] Date(s): 09/06/24 - 09/13/24 [facility] Andres Reavesley Adult [address] [place] [address]- Encounter Diagnosis Liver cirrhosis(Discharge Diagnosis) - 09/06/24 Depression, major, recurrent, moderate(Discharge Diagnosis) - 09/06/24 Controlled type 2 diabetes mellitus with diabetic neuropathy, without long-term current use of insulin(Discharge Diagnosis) - 09/06/24 Diabetic neuropathy(Discharge Diagnosis) - 09/06/24 Current use of insulin(Discharge Diagnosis) - 09/06/24 Severe obesity(Discharge Diagnosis) - 09/06/24 Hypertension(Discharge Diagnosis) - 09/06/24 Hypercholesterolemia(Discharge Diagnosis) - 09/06/24 Gout(Discharge Diagnosis) - 09/06/24 Low back pain(Discharge Diagnosis) - 09/06/24 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) - 09/06/24 Atypical carcinoid lung tumor(Discharge Diagnosis) - 09/06/24 Attending Physician: Franci Giles NP Encounter Type: Office Visit Allergies, Adverse Reactions, Alerts Substance Criticality Severity Reaction Reaction Severity Status erythromycin vomit Active isopropyl alcohol topical blisters skin reaction Active Lovenox 1 unknown Active Soma hives Active Animal Dander Active Pollen sneezing, post nasal drip, phlegm Active Oyster throat closes up A ctive Rubbing Alcohol Wipes Hives Active metFORMIN diarrhea Active 1localized skin reaction, large hives Immunizations Given and Recorded Vaccine Date Status Refusal Reason Influenza Virus Vaccine (oldterm) 1 06/04/24 Recor ded SARS-CoV-2 mRNA ([id number]) vax 2 06/04/24 Recorded SARS-CoV-2 mRNA ([id number]) vax 12/07/21 Recorded SARS-CoV-2(COVID-19)mRNA-LNP vac([id number]) 3 08/15/23 Given influenza virus vaccine, inactivated 4 06/20/23 Gi gertrude influenza virus vaccine, inactivated 05/19/22 Troy rded influenza virus vaccine, inactivated 05/28/21 Troy rded influenza virus vaccine, inactivated 05/23/20 Give n influenza virus vaccine, inactivated 06/21/19 Give n influenza virus vaccine, inactivated 05/09/18 Troy rded influenza virus vaccine, inactivated 05/18/17 Give n influenza virus vaccine, inactivated 06/13/16 Troy rded influenza virus vaccine, inactivated 5 05/25/16 Re corded influenza virus vaccine, inactivated 08/11/14 Troy rded influenza virus vaccine, inactivated 08/20/13 Troy rded influenza virus vaccine, inactivated 08/06/12 Troy rded influenza virus vaccine, inactivated 06/03/11 Troy rded influenza virus vaccine, inactivated 05/03/10 Troy rded zoster vaccine, inactivated 12/25/22 Recorded zoster vaccine, inactivated 6 09/22/22 Recorded [id number] 12y+ bivalent booster vax 05/30/22 Recorded SARS-CoV-2 (COVID-19) mRNA BNT-162b2 vac 06/16/21 Recorded SARS-CoV-2 (COVID-19) mRNA BNT-162b2 vac 12/13/20 Recorded SARS-CoV-2 (COVID-19) mRNA BNT-162b2 vac 11/21/20 Recorded pneumococcal 23-valent vaccine 03/17/18 Given pneumococcal 13-valent vaccine 05/24/16 Given tetanus/diphtheria/pertussis, acel(Tdap) 12/06/15 Given 1Result Comment: [facility] 2Result Comment: [facility] 3Result Comment: [facility] [id number] 4Result Comment: ND: [id number] Screening checklist was completed. 5Location History: [facility] 6Result Comment: [facility] Medications acetaminophen-oxyCODONE 325 mg-5 mg oral tablet 1, tablet, By Mouth, Every 4 hours, PRN, Refills 0, Tot. Refills 0, Maintenance, for pain, 03/11/24 11:10:00 AM EDT, Tablet, Partial fill upon patient request if the prescription is for a schedule II opioid drug. Start Date: 03/11/24 Status: Ordered Repeat number: 1 Albuterol (Eqv-ProAir HFA) 90 mcg/inh inhalation aerosol 2 puffs, Inhalation, Every 6 hours, PRN NEEDED FOR WHEEZING, # 8.5 Gm, 5 Refills, Maintenance, 06/24/24 1:40:00 PM EDT, [facility], 25, 2 puffs Inhalation Every 6 hours,PRN: NEEDED FOR WHEEZING, 166, cm, 06/18/24 6:52:00 EDT, Height, 117, kg, 06/18/24 6:52:00 EDT, Dry Weight Start Date: 06/24/24 Status: Ordered Quantity: 8.5 Unit: g Repeat number: 6 allopurinol 300 mg oral tablet 1, tablet, By Mouth, Daily, # 30 tablet, Refills 5, Maintenance, 01/14/24 1:50:00 PM EDT, Route to Pharmacy Electronically, [facility], 166, cm, 12/22/23 15:01:00 EDT, Height, 109.6, kg, 12/03/23 14:37:00 EDT, Dry Weight Start Date: 01/14/24 Status: Ordered Quantity: 30.0 Unit: tablet Repeat number: 1 barium sulfate 2% oral suspension See Instructions, 2 premix 450ml bottles, take as directed for CT scan., # 900 mL, 0 Refills, Maintenance, 09/10/24 3:20:00 PM EST, [facility], Partial fill upon patient request if the prescription is for a schedule II opioid drug., 2 premix 450ml bottles, take as directed for CT scan., 166, cm, 09/06/24 13:27:00 EST, Height, 111.3, kg, 09/06/24 11:46:00 EST, Dry Weight Start Date: 09/10/24 Status: Ordered Quantity: 900.0 Unit: mL Repeat number: 1 Alyssa Corrales 100 units/mL subcutaneous solution = 62 units, Subcutaneous Infusion, Daily, Increase 2 units every 3 days until FBS < 130 per PCP Max dose 100 units qday Replaces Tresiba, # 10 each, 5 Refills, Maintenance, 09/07/24 8:42:00 AM EST, [facility], Partial fill upon patient request if the prescription is for a schedule II opioid drug., 166, cm, 09/06/24 13:27:00 EST, Height, 111.3, kg, 09/06/24 11:46:00 EST, Dry Weight Start Date: 09/07/24 Status: Ordered Quantity: 10.0 Unit: each Repeat number: 6 Breztri Aerosphere inhalation aerosol 2 inhalation, Inhalation, 2 times a day, bid per street light lamp cleaner, 0 Refills, Maintenance, 08/10/24 11:00:00 AM EST, Partial fill upon patient request if the prescription is for a schedule II opioid drug. Start Date: 08/10/24 Status: Ordered Repeat number: 1 CeleBREX 200 mg oral capsule 1 capsule = 200 mg, By Mouth, Daily, # 28 capsule, 11 Refills, Maintenance, 06/12/23 1:25:00 PM EDT, Capsule, [facility], Partial fill upon patient request if the prescription is for a schedule II opioid drug., 166, cm, 05/05/23 11:41:00 EDT, Height, 118, kg, 04/21/23 12:01:00 EDT, Dry Weight Start Date: 06/12/23 Status: Ordered Quantity: 28.0 Unit: capsule Repeat number: 12 CPAP Equipment See Instructions, # 1 each, Refills 11, Tot. Refills 11, Maintenance, CPAP MASK Dx PATRICIO G47.33, 01/12/24 1:18:00 PM EDT, Supply Start Date: 01/12/24 Status: Ordered Quantity: 1.0 Unit: each Repeat number: 12 Diabetic shoes Diabetic shoes, See Instructions, # 2 each, Refills 1, Tot. Refills 1, Maintenance, 1 pair for E11.40, 09/10/24 12:27:00 PM EST, Supply Start Date: 09/10/24 Status: Ordered Quantity: 2.0 Unit: each Repeat number: 2 Freestyle Lite Lancets See Instructions, # 120 each, Refills 5, Tot. Refills 5, Maintenance, Test blood sugar qid IDDM E11.9, 11/25/22 11:48:00 AM EDT, can give 90 day supply, Compound, 165.1, cm, 10/08/22 11:03:00 EST, Height, 114.9, kg, 10/08/22 11:03:00 EST, Dry Weight Start Date: 11/25/22 Status: Ordered Quantity: 120.0 Unit: each Repeat number: 6 Freestyle Lite Test Strips See Instructions, # 120 each, Refills 11, Tot. Refills 11, Maintenance, Test blood sugar qid IDDM E11.9, 11/19/22 1:31:00 PM EDT, Supply, 165.1, cm, 10/08/22 11:03:00 EST, Height, 114.9, kg, 10/08/22 11:03:00 EST, Dry Weight Start Date: 11/19/22 Status: Ordered Quantity: 120.0 Unit: each Repeat number: 12 furosemide 40 mg oral tablet 2, tablet, By Mouth, 2 times a day, # 112 tablet, Refills 5, Tot. Refills 5, Maintenance, 09/06/24 1:52:00 PM EST, Route to Pharmacy Electronically, [facility], 166, cm, 09/06/24 13:27:00 EST, Height, 111.3, kg, 09/06/24 11:46:00 EST, Dry Weight Start Date: 09/06/24 Stop Date: 02/21/25 Status: Ordered Quantity: 112.0 Unit: tablet Repeat number: 6 gabapentin 100 mg oral capsule Refills 0, Maintenance, 08/15/23 11:17:00 AM EST, Partial fill upon patient request if the prescription is for a schedule II opioid drug. Start Date: 08/15/23 Status: Ordered Repeat number: 1 glipiZIDE 10 mg oral tablet 2 tablet, By Mouth, Daily, # 180 tablet, 1 Refills, Maintenance, 09/06/24 1:53:00 PM EST, [facility], 166, cm, 09/06/24 13:27:00 EST, Height, 111.3, kg, 09/06/24 11:46:00 EST, Dry Weight Start Date: 09/06/24 Status: Ordered Quantity: 180.0 Unit: tablet Repeat number: 2 losartan 100 mg oral tablet 1 tablet, By Mouth, Daily, # 30 tablet, 5 Refills, Maintenance, 07/13/24 2:49:00 PM EST, [facility] # [facility], 166, cm, 07/12/24 13:45:00 EST, Height, 114.7, kg, 07/12/24 13:45:00 EST, Dry Weight Start Date: 07/13/24 Status: Ordered Quantity: 30.0 Unit: tablet Repeat number: 1 Metoprolol Succinate ER 25 mg oral tablet, extended release 1, tablet, By Mouth, Daily, # 90 tablet, Refills 1, Tot. Refills 1, Maintenance, 09/06/24 1:53:00 PMEST, Route to Pharmacy Electronically, [facility] # [facility], 166, cm, 09/06/24 13:27:00 EST, Height,111.3, kg, 09/06/24 11:46:00 EST, Dry Weight Start Date: 09/06/24 Status: Ordered Quantity: 90.0 Unit: tablet Repeat number: 2 Misc Rx Refills 0, Maintenance, Severe allergy Plus (or any Allergy medicines) up to twice a day as needed,06/15/21 9:48:00 AM EDT, Supply Start Date: 06/15/21 Status: Ordered Repeat number: 1 montelukast 10 mg oral tablet See Instructions, TAKE ONE TABLET BY MOUTH EVERY DAY, # 28 tablet, Refills 11, Maintenance, 05/19/2411:42:00 AM EDT, Instructions Replace Required Details, Route to Pharmacy Electronically, [facility], 166, cm, 05/03/24 13:27:00 EDT, Height, 111.6, kg, 05/03/24 13:27:00 EDT, Dry Weight Start Date: 05/19/24 Status: Ordered Quantity: 28.0 Unit: tablet Repeat number: 1 [place], 31 G x 5 mm BD Ultra Fine III See Instructions, # 100 each, Refills 11, Tot. Refills 11, Maintenance, Dx: Diabetes type 2 (E11.9)Use daily with insulin, 07/01/24 1:15:00 PM EST, Supply, 166, cm, 06/18/24 6:52:00 EDT, Height, 117,kg, 06/18/24 6:52:00 EDT, Dry Weight Start Date: 07/01/24 Status: Ordered Quantity: 100.0 Unit: each Repeat number: 12 Rollator Walker with seat Rollator Walker with seat, See Instructions, # 1 each, Refills 0, Tot. Refills 0, Maintenance, Ht 5'5 Wt: 265 lbs length of need: Lifetime Dx: degeneration of cervicle disc lung CA diabetic neuropathy, 12/01/20 8:05:00 AM EDT, Supply Start Date: 12/01/20 Status: Ordered Quantity: 1.0 Unit: each Repeat number: 1 rosuvastatin 5 mg oral tablet 1 tablet, By Mouth, Daily, # 28 tablet, 5 Refills, Maintenance, 05/19/24 11:42:00 AM EDT, [facility], 166, cm, 05/03/24 13:27:00 EDT, Height, 111.6, kg, 05/03/24 13:27:00 EDT, Dry Weight Start Date: 05/19/24 Status: Ordered Quantity: 28.0 Unit: tablet Repeat number: 6 Tylenol 325 mg oral tablet 975 mg, 3, tablet, By Mouth, Every 6 hours, Refills 0, Maintenance, 06/20/21 7:23:00 AM EDT, Partial fill upon patient request if the prescription is for a schedule II opioid drug. Start Date: 06/20/21 Status: Ordered Repeat number: 1 Problem List Condition Confirmation Course Effective Dates Status Health Status Informant Unsteady gait Confirmed Active Hx of unilateral nephrectomy Confirmed Active Elevated alkaline phosphatase level Confirmed Active Allergic rhinitis Confirmed Active Ankle pain Confirmed Active Asthma Confirmed Active Bilateral lower extremity edema Confirmed Active Buttock pain Confirmed Active Carcinoid bronchial adenoma of right lung Confirmed Active Atypical carcinoid lung tumor 1 Confirmed Active Carpal tunnel syndrome 2 Confirmed Active Liver cirrhosis Confirmed Active Coccydynia Confirmed Active Foot deformity, bilateral Confirmed Active Degeneration of cervical intervertebral disc Confirmed Active Difficulty sleeping Confirmed Active Central > Obstructive Sleep Apnea (AHI 10, Min SpO2 ) Confirmed Active Drug interaction 3 Confirmed Active Edema Confirmed Active Ex-cigarette smoker Confirmed Active Difficult airway for intubation Confirmed Active Failed back syndrome 4 Confirmed Active Gastro-esophageal reflux disease Confirmed Active Gout Confirmed Active S/P insertion of spinal cord stimulator Confirmed Active History of diastolic dysfunction Confirmed Active History of nephrectomy 5 Confirmed Active History of lobectomy of lung 6 Confirmed Active History of chest tube placement Confirmed Active Hepatomegaly Confirmed Active History of colonoscopy 7 Confirmed Active History of shoulder surgery 8 Confirmed 12/10/12 Active Hydronephrosis, left Confirmed Active Hypercholesterolemia Confirmed Active Hypertension Confirmed Active Internal hemorrhoids 9 Confirmed Active Left thyroid nodule Confirmed 01/2012 Active Elevated liver function tests 10 Confirmed Active Current use of insulin Confirmed Active Low back pain Confirmed Active Lumbar facet joint pain Confirmed Active Lung mass Confirmed Active Multiple joint pain Confirmed Active Myofascial pain Confirmed Active Neck pain Confirmed Active Nephrolithiasis Confirmed 01/2012 Active Neuralgic pain,face Confirmed Active Diabetic neuropathy Confirmed Active Neuropathy of lower extremity Confirmed Active PATRICIO on CPAP Confirmed Active Osteopenia Confirmed Active Parotid mass Confirmed 01/2012 Active Psychophysiologic insomnia Confirmed Active Radicular syndrome of lower limbs Confirmed Active Radicular syndrome of upper limbs Confirmed Active Depression, major, recurrent, moderate Confirmed Active Restless leg syndrome Confirmed Active Severe obesity Confirmed Active Shoulder pain Confirmed Active Back spasm Confirmed Active Status post cervical spinal fusion 11 Confirmed 06/30/12 Active Therapy outcome measure 12 Confirmed Active Controlled type 2 diabetes mellitus with diabetic neuropathy, without long-term current use of insulin Confirmed Active Vertigo Confirmed Active 1Metastatic 2EMG R hand 3h/o antidepressant and opioid co-treatment, no h/o total CK>80 4s/p 4 lumbar surgeries between 1980 and 1988 5Left 2015 6Right 80701; repeat 2025 1. Left shoulder arthroscopic rotator cuff repair 2. Left shoulder arthroscopic subacromial decompression 3. Left shoulder arthroscopic distal clavicle excision for 1. Left shoulder rotatorcuff tear 2. Left shoulder subacromial impingement syndrome 3. Left shoulder acromioclavicular joint arthropathy by Byron Corrales M.D. at [facility]. 9colo 2016 10Fatty Liver 111. Anterior cervical discectomy/arthrodesis C5-C6; 2. Anterior cervical discectomy/arthrodesis C6-C7; 3. Intervertebral fixative C5-C6, C6-C7; 4. Harvesting of bone graft for arthrodesis, same incision for Cervical stenosis C5-C6, C6-C7 by Mansoor Ratliff M.D. at [facility] 06/30/2012. 12Initial [place] Back Pain Disability Scale: 79 on 08/07/2009 Diagnosis Diagnosis Type Effective Dates Health Status Clinical Service Informant Liver cirrhosis Discharge Diagnosis 09/06/24 Depression, major, recurrent, moderate Discharge Diagnosis 09/06/24 Controlled type 2 diabetes mellitus with diabetic neuropathy, without long-term current use of insulin Discharge Diagnosis 09/06/24 Diabetic neuropathy Discharge Diagnosis 09/06/24 Current use of insulin Discharge Diagnosis 09/06/24 Severe obesity Discharge Diagnosis 09/06/24 Hypertension Discharge Diagnosis 09/06/24 Hypercholesterolemia Discharge Diagnosis 09/06/24 Gout Discharge Diagnosis 09/06/24 Low back pain Discharge Diagnosis 09/06/24 Carcinoid bronchial adenoma of right lung Discharge Diagnosis 09/06/24 Atypical carcinoid lung tumor Discharge Diagnosis 09/06/24 Vital Signs Most recent to oldest [Reference Range]: 1 Height 166 cm (09/06/24 1:27 PM) Weight 113.3 kg (09/06/24 1:27 PM) Oxygen Saturation [94-100 %] 98 % (09/06/24 1:27 PM) Pulse Rate [55-90 bpm] 77 bpm (09/06/24 1:27 PM) Body Mass Index [18.5-24.99 kg/m2] 41.12 kg/m2 *>HHI* (09/06/24 1:27 PM) Blood Pressure [90-138/55-84 mm Hg] 138/ 78mm Hg (09/06/24 1:27 PM) Temperature [96.8-100.4 DegF] 98.8 DegF (09/06/24 1:27 PM) Mode of Delivery (Oxygen) Room air (09/06/24 1:27 PM) Blood pressure sites Arm, right (09/06/24 1:27 PM) Temperature Route Oral (09/06/24 1:27 PM) Weight Obtained Via Standing scale (09/06/24 1:27 PM) Social History Social History Type Response Smoking Status Never (less than 100 in lifetime); Other: PATIENT NEVER SMOKED; entered on: 06/10/24 Sex Sex Representation Female (finding) Goals Complications of Cancer or Associated Treatment Avoided Start Date:04/20/24 End Date: Status:Met Progression:Not Met Follows Diabetes Self-Management Plan Start Date :07/25/23 End Date:10/24/23 Status:Met Progression:Not Met Pt needs to meet with approp riate team to discuss having spinal stimulator removed vs keeping it Start Date:04/29/23 End Date:07/29/23 Status:Met Progression:Met Note * Mariann Kaiser: PERFORM Event Display: Patient Education/Instruction Authored Date: [id number] Ambulatory Adult Visit Summary [facility] [address] [place] [address] Name: FLORENCE VALDERRAMA : 1950?? Visit: 09/06/2024 13:04?? Ambulatory Visit Instructions ?? Your Care Team Primary Care Provider Ela BENTLEY, Jose Springer? This Visit Provider Tisha BLAKE , Franci Kingston Vitals Signs Temperature: 98.8 DegF Height: 166 cm Pulse Rate: 77 bpm Weight: 113.3 kg Systolic Blood Pressure: 138 mm Hg Body Mass Index:??41.12 kg/m2??Critical Diastolic Blood Pressure: 78 mm Hg Body surface area: 2.29 Oxygen Saturation: 98 % ?? What to do next Scheduled Follow-Up Appointments Friday 11:15 AM EST ?? Where: [facility] [address] [place] [id number]- Status: Pending Friday 11:00 AM EST ?? Where: [address] [place] [address]- Status: Pending Follow-Up Appointments Follow Up with??Franci Giles NP When:??In 6 months Why: MWV Where: [address] [place] [address]- Business (1) Future Orders Iron + Iron Binding Capacity - Once, *Est. 10/12/23 +/- 28 days, Single or Recurring Future Order?? Ferritin - Once, *Est. 10/12/23 +/- 28 days, Single or Recurring Future Order?? ACTH, Plasma - Routine, Once, 03/11/24 11:43:00 EDT, Order for Today, [facility], Blood?? Cortisol Level - Routine, Once, 03/11/24 11:43:00 EDT, Order for Today, [facility], Blood?? DHEA Sulfate - Routine, Once, 03/11/24 11:44:00 EDT, Order for Today, [facility], Blood?? Comprehensive Metabolic Panel - Routine, Once, 06/22/24 13:36:00 EDT, Single or Recurring Future Order, [facility], Blood?? Hemoglobin A1C (Monitoring) - Routine, Once, 06/22/24 13:39:00 EDT, Single or Recurring Future Order, [facility], Blood?? Microalbumin Urine (Urine Microalbumin) - Routine, Once, 06/22/24 13:39:00 EDT, Single or RecurringFuture Order, [facility], Urine?? Lipid Panel - Routine, Once, 06/22/24 13:40:00 EDT, Single or Recurring Future Order, [facility], Blood?? BUN - Routine, Once, labs needed before 09/06/2024 , 07/26/24 3:00:00 EST, Single or Recurring Future Order, [facility], Blood?? Creatinine - Routine, Once, labs needed before 09/06/2024 , 07/26/24 3:00:00 EST, Single or Recurring Future Order, [facility], Blood?? Medications The list below reflects the information in our records and provided by you today along with any changes made during this visit. Please continue your medications until treatment is completed or stopped by your provider. If this is different from the information you have or there are other questions,please contact the prescribing provider. What How Much When Instructions Changed Durable Medical Equipment (CPAP Equipment) See instructions CPAP MASK ?? Dx PATRICIO G47.33 ?? Changed Durable Medical Equipment (Freestyle Lite Lancets) See instructions Test blood sugar qid ??IDDM ?E11.9 ?? Changed Durable Medical Equipment (Freestyle Lite Test Strips) See instructions Test blood sugar qid ??IDDM ?E11.9 ?? Changed Durable Medical Equipment ([place], 31 G x 5 mm BD Ultra Fine III) See instructions Dx: Diabetes type 2 (E11.9) Use daily with insulin ?? Changed Durable Medical Equipment (Rollator Walker with seat) See instructions Ht 5'5 Wt: 265 lbs length of need: Lifetime Dx: degeneration of cervicle disc lung CA diabetic neuropathy ?? Changed Gabapentin (gabapentin 100 mg oral capsule) Changed Miscellaneous Rx (Diabetic shoes) See instructions 1 pair for E11.40 ?? Changed Miscellaneous Rx (Misc Rx) Severe allergy Plus (or any Allergy medicines) up to twice a day as needed ?? Changed Montelukast (montelukast 10 mg oral tablet) See instructions TAKE ONE TABLET BY MOUTH EVERY DAY ?? Changed budesonide/ formoterol/ glycopyrrolate (Breztri Aerosphere inhalation aerosol) 2 inhalation Inhalation Twice a day bid per street light lamp cleaner ?? Unchanged Acetaminophen (Tylenol 325 mg oral tablet) 3 tab(s) Oral Every 6 hours Unchanged Albuterol (Albuterol (Eqv-ProAir HFA) 90 mcg/ inh inhalation aerosol) 2 puff(s) Inhalation Every 6 hours as needed for NEEDED FOR WHEEZING Unchanged Allopurinol (allopurinol 300 mg oral tablet) 1 tab(s) Oral Daily Unchanged Celecoxib (CeleBREX 200 mg oral capsule) 1 capsule Oral Daily Unchanged Furosemide (furosemide 40 mg oral tablet) 2 tab(s) Oral Twice a day Duration: 28 Days Pickup at [facility] Unchanged GlipiZIDE (glipiZIDE 10 mg oral tablet) 2 tab(s) Oral Daily Pickup at [facility] Unchanged insulin degludec (Tresiba FlexTouch 200 units/ mL subcutaneous solution) See instructions INJECT 60 UNITS UNDER THE SKIN DAILY AND INCREASE 2 UNITS EVERY 3 DAYS UNTIL FBS<130. MAX DOSE 50 UNITS PER DAY ?? Unchanged Losartan (losartan 100 mg oral tablet) 1 tab(s) Oral Daily Unchanged Metoprolol (Metoprolol Succinate ER 25 mg oral tablet, extended release) 1 tab(s) Oral Daily Pickup at [facility] Unchanged Oxycodone / Acetaminophen (acetaminophen-oxyCODONE 325 mg-5 mg oral tablet) 1 tab(s) Oral Every 4 hours as needed for for pain Unchanged Rosuvastatin (rosuvastatin 5 mg oral tablet) 1 tab(s) Oral Daily Pharmacy Information [facility]: [address], [place] [id number] [phone] Medications and Immunizations Administered Medications Given During Visit No medications given during this visit.?? Allergies (NKA means No Known Allergies) Animal Dander Lovenox??(unknown) Oyster??( throat closes up ) Pollen??( sneezing, post nasal drip, phlegm) Rubbing Alcohol Wipes??(Hives) Soma??(hives) erythromycin??(vomit) isopropyl alcohol topical??(blisters, skin reaction) metFORMIN??(diarrhea) Common Emergency Awareness Tips IS IT A STROKE? Act FAST and Check for these signs: FACE Does the face look uneven? ARM Does one arm drift down? SPEECH Does their speech sound strange? TIME Call at any sign of stroke ?? Heart Attack Signs Chest discomfort: Most heart attacks involve discomfort in the center of the chest and lasts more than a few minutes, or goes away and comes back. It can feel like uncomfortable pressure, squeezing, fullness or pain. Discomfort in upper body: Symptoms can include pain or discomfort in one or both arms, back, neck, jaw or stomach. Shortness of breath: With or without discomfort. Other signs: Breaking out in a cold sweat, nausea, or lightheaded. Remember, MINUTES DO MATTER. If you experience any of these heart attack warning signs, call to get immediate medical attention! ?? Smoking can increase your chances of developing chronic health problems and can cause harmful effects to other family members in your house. If you smoke, you are strongly encouraged to quit. Please call [facility] at [phone] or [phone] ([phone]) or log in to [email or web address] for referrals to smoking cessation programs. ?? The National Suicide Prevention Hotline is available 17/03 if you or someone you know needs to find a reason to keep living. By calling [phone] ([phone]) you'll be connected to a skilled, trained counselor at a crisis center in your area. [facility] Home Comfort Zones Portal You can view and manage your care through the patient portal or by using a health care cosmo of your choosing. [employer] is a website that allows you to securely view your medical information including your hospital discharge summary, office visit summaries, medications and follow-up visits. You can also request appointments, renew medications, and request access to your medical information using a health care cosmo of your choosing, or just ask a question. You can enroll at [email or web address] or register during your next office visit. [facility], in keeping with [facility] guidance, no longer requires face masks for staff, patientsor visitors in most situations. Similiar to time spent indoors at other locations, there is the chance that you were exposed to repiratory viruses during your time with us (such as flu or COVID-19). If you develop symptoms concerning for a viral respiratory infection, please seek testing (and treatment if indicated) from your medical provider or home test kit. ?? Disclaimer: The information provided is of a general nature and is intended to be used in conjunction with the recommendations and advice of your health care practitioner. Every effort has been made to ensure that the information provided is accurate and complete at the time it is provided to you however, as your needs change, or, as new information becomes available, different or additional instructions may be required. ?? If you have questions, please consult with your primary care provider or pharmacist, as appropriate. This information is not intended to serve as substitution for assessment and evaluation by a qualified health care provider. If you do not have a primary care provider, you may find a [facility] provider by calling [facility] Link at [phone]. Patient Care team information Care Team Personnel Name: Violet Logan Position: [facility] Onco RN Member Role: Primary Care Nurse Name: Alma Delia Alonzo MD Position: [facility] Physician - Oncology Member Role: Lifetime Consulting Physician Name: Sharon Lawson Position: [facility] Outreach Member Role: Lifetime Consulting Physician Name: Aaliyah Lawson RN Position: [facility] RN Member Role: Primary Care Nurse Name: Catherine Ingram RN Position: [facility] RN Member Role: Primary Care Nurse Name: Angelo Finley RN Position: [facility] RN Member Role: Primary Care Nurse Name: Ayleen Del Real RN Position: [facility] RN Member Role: Primary Care Nurse Name: Jose Mahmood MD Position: [facility] Physician - Primary Care Member Role: PCP Address: [address] [place] [phone]- Telecom: Name: Clem Ortega Position: [facility] Office Staff Member Role: Primary Care Nurse Name: Loreta (Bayaubree) Sulma Position: [facility] cocoa powder mixer operator Member Role: Fundraising Director Name: Flora Balderas RN Position: [facility] RN Member Role: Primary Care Nurse Name: Kirti Aguilera RN Position: [facility] Onco RN Member Role: Primary Care Nurse Name: Jose Fuentes RN Position: [facility] RN Member Role: Primary Care Nurse Name: Shelby Romero RN Position: [facility] Onco RN Member Role: Primary Care Nurse Name: Doretha Astudillo RN Position: [facility] Onco RN Member Role: Primary Care Nurse Name: Cecille Parra RN Position: [facility] RN Member Role: Primary Care Nurse Name: Jayce Rodney RN Position: [facility] Onco RN Member Role: Primary Care Nurse Name: Magalys Spain RN Position: [facility] RN Member Role: Primary Care Nurse Name: Marianna Alaniz RN Position: [facility] RN Member Role: Primary Care Nurse Name: Ramiro De La Torre RN Position: [facility] RN Member Role: Primary Care Nurse Name: Eduardo Monae NP Position: [facility] Associate Professional Member Role: Primary Care Nurse Address: [address] [place] [address] Telecom: Name: Ade Penn RN Position: [facility] ED RN W/OE and Tasks Member Role: Primary Care Nurse Name: Guerda Leung RN Position: [facility] AMB Nurse Member Role: Primary Care Nurse Name: Karime Singer RN Position: [facility] Onco RN Member Role: Primary Care Nurse Name: Cheryl Latif RN Position: [facility] Hospital Contract Implementation Analyst Member Role: Primary Care Nurse Name: Kristi Browning RN, I Position: [facility] RN Member Role: Primary Care Nurse Care Team Related Persons Name: MADHU JAFFE Name: MORRISONSHOBHA GRAF Name: LETTY JIMENEZ Insurance Providers Guarantor name: FLORENCE POULSanju Health Plan Information #: 1 Payer: MEDICARE PART B OUTPT Member Number: [id number] Policy Number: NA Group Number: NA Health Plan Information #: 2 Payer: MEDEX Member Number: [id number] Policy Number: NA Group Number: NA Health Plan Information #: 3 Payer: [place] Member Number: [id number] Policy Number: NA Group Number: NA
== END 2024-10-06 15:40 | disposition home or self-care (01) ==
PROVIDERS: PCP Internal Medicine; Visit Provider Internal Medicine
DX: R74.01 Elevation of levels of liver transaminase levels (principal); R16.0 Hepatomegaly, not elsewhere classified; D3A.00 Benign carcinoid tumor of unspecified site
CPT/HCPCS: 99204; G2211

== ENCOUNTER → 2024-10-06 14:59 | Outpatient (BNVA) | payer MEDICARE, SELFPAY | PROVIDERS: PCP Internal Medicine; Visit Provider Internal Medicine | DX: D3A.00 Benign carcinoid tumor of unspecified site (principal); R16.0 Hepatomegaly, not elsewhere classified; R79.89 Other specified abnormal findings of blood chemistry | CPT/HCPCS: 99202 ==

== ENCOUNTER 2024-10-20 09:32 | Outpatient (REF) | payer MEDICARE, SELFPAY ==
--- NOTE | ~2024-10-20 | US_ITS ---
EXAMINATION: US ABDOMEN HISTORY: R79.89 - Other specified abnormal findings of blood chemistry TECHNIQUE: Real-time grayscale ultrasound imaging of the abdomen was performed and images were reviewed. COMPARISON: There are no prior studies for comparison. FINDINGS: Liver: The right lobe of the liver measures 20 cm in size. The left lobe of the liver measures 20 cm in size. The liver demonstrates normal homogeneous echotexture. There is a 1.2 cm cyst in the right lobe. No intrahepatic biliary ductal dilatation is identified. There is normal hepatopedal flow in the portal vein. Gallbladder and biliary tree: The gallbladder is surgically absent. The common bile duct is normal in caliber measuring 6 mm. Kidneys: The right kidney measures 15.0 cm in length and is unremarkable, without evidence of calculi, hydronephrosis, or masses. The left kidney is surgically absent. Pancreas: Pancreas appears atrophic. Spleen: The spleen is enlarged, measuring 16.4 cm in length. Abdominal aorta and inferior vena cava: The visualized portions of the abdominal aorta and inferior vena cava are normal in caliber. There is no free fluid in the abdomen. US/US abdomen complete IMPRESSION: Hepatosplenomegaly. 1.2 cm hepatic cyst. Electronically signed by: Josef Franco MD 10/20/2024 10:39 AM EST
--- OUTSIDE RECORDS SUMMARY | 2024-10-20 10:53 | XMS_ITS ---
Author Organization [facility] Address [address] [place] [address] Care Team Providers Care Director Of Student Services Name Role Phone Jose Mahmood MD Primary Care Provider Nelda Louise [phone] REASON FOR VISIT rs from 07/21/24 Encounters Encounter Location Date Provider Diagnosis [facility] [address] [place] [address] 06/30/2024 Nelda Dumont Plan Of Treatment Next Appt Details Provider Name:Mackenzie barnard, 10/22/2024 12:15:00 PM, [address] [place], [address], Progress Notes * Alysha DAVIS LDOB:1949 (74 yo F)Acc No.[id number]:06/30/2024 Patient:?ChampadinaAlysha :1950???Age:74 Y???Sex:Female Address:[address] [facility] [address], [place], [address] * true * Date:? Generated for Printi ng/Josi/eTransmitting on:?10/20/2024 10:53 AM EST
--- OUTSIDE RECORDS SUMMARY | 2024-10-20 10:53 | XMS_ITS ---
Author Organization [facility] Address [address] [place] [address] Care Team Providers Care Auto Hiker Name Role Phone Jose Mahmood MD Primary Care Provider Nelda Louise [phone] Encounters Encounter Location Date Provider Diagnosis [address] [address] 07/21/2024 Nelda Dumont Plan Of Treatment Next Appt Details Provider Name:Mackenzie barnard, 10/22/2024 12:15:00 PM, [address] [place], [address], Progress Notes * Olivia DAVISh LDOB:1949 (74 yo F)Acc No.[id number]:07/21/2024 Progress Note Patient:?Alysha DAVIS Provider:?Nelda Dumont DPM :1950???Age:74 Y???Sex:Female D ate:07/21/2024 Address:[address] [place] [address], [place], [place] Pcp:Jose Mahmood MD Subjective: * Chief Complaints: [...] DPM Date:?1 09/20/2023 Generated for Mulugeta gudino/Josi/Bharat on:?10/20/2024 10:53 AM EST
--- OUTSIDE RECORDS SUMMARY | 2024-10-20 10:53 | XMS_ITS | Patient Health Record ---
[facility] Address [address] [place] [address] Care Team Providers Care Vegetable Cook Name Role Phone Ela BENTLEY, Jose Primary Care Provider Nelda Louise Unavailable [phone] José Serrano Unavailable [phone] Allergies Allergen (clinical drug ingredient) Drug/Non Drug [...] Polyneuropathy due to diabetes mellitus type I (643870812) Type 1 diabetes mellitus with diabetic polyneuropathy (E10.42) Active confirmed Problem Chronic ulcer of foot (020519836) Non-pressure chronic ulcer of other part of left foot with fat layer exposed (L97.522) Active confirmed Problem Localized, primary osteoarthritis of the ankle and/or foot (456556034) Primary osteoarthritis, left ankle and foot (M19.072) Active confirmed Problem Non-pressure chronic ulcer of other part of left foot limited to breakdown of skin (L97.521) Active confirmed Problem Acquired hammer toe of right foot (2725947628858124 ) Other hammer toe(s) (acquired), right foot (M20.41) Active confirmed Problem Acquired hammer toe of left foot (9891109019661644 ) Other hammer toe(s) (acquired), left foot (M20.42) Active confirmed Problem Polyneuropathy due to type 2 diabetes mellitus (712639265) Type 2 diabetes mellitus with diabetic polyneuropathy (E11.42) Active confirmed Vital Signs Blood pressure diastolic 73 mm Hg 12/17/2023 Height 5ft 5in in 08/05/2024 Blood pressure systolic 120 mm Hg 12/17/2023 Weight 245 lbs 08/05/2024 BMI 40.77 kg/m2 08/05/2024 Procedures Procedure Date Ordered Date Performed Result Body Sit e 56164-ZKKZQNQ SKIN/TISSUE 11/05/2023 N/A 77307-KVPLPFA NAIL, 6 OR MORE 08/05/2024 N/A 42084-XIWC SKIN LESIONS, OVER 4 08/05/2024 N/A Encounters Encounter Location Date Provider Diagnosis [address] [address] 10/22/2023 José Serrano Ingrowing nail L60.[address] [address] 11/05/2023 José Serrano Non-pressure chronic ulcer of other part of left foot with fat layer exposed L97.[address] [address] 12/17/2023 oJsé Serrano Tinea unguium B35.1 ; Type 2 diabetes mellitus with diabetic polyneuropathy E11.42 ; Pain in right toe(s) M79.674 ; Pain in left toe(s) M79.675 ; Primary osteoarthritis, left ankle and foot M19.072 ; Other hammer toe(s) (acquired), left foot M20.42 ; Other hammer toe(s) (acquired), right foot M20.41 ; Plantar fascial fibromatosis M72.2 ; Metatarsalgia, left foot M77.42 and Ingrowing nail L60.[address] [address] 03/18/2024 José Serrano Tinea unguium B35.1 ; [...] left foot M77.42 and Ingrowing nail L60.[address] [address] 05/20/2024 José Serrano Tinea unguium B35.1 ; [...] left foot M77.42 and Ingrowing nail L60.[address] [address] 08/05/2024 Nelda Dumont Type 2 diabetes mellitus with diabetic polyneuropathy E11.42 and Tinea unguium B35.[address] [address] 06/30/2024 Nelda Dumont Assessments Encounter Date Diagnosis [...] X ray : Foot, left 3V 03/29/2020 29858-PQRHNGI NAIL, 6 OR MORE 08/05/2024 19030-YHRFGXS SKIN/TISSUE 05/29/2023 55843-LPCWOUE SKIN/TISSUE 11/05/2023 50202-FJUI SKIN LESIONS, OVER 4 08/05/20 24 59583-INGE SKIN LESIONS, OVER 4 08/03/20 20 76827-YDWT SKIN LESIONS, OVER 4 10/18/19 21 52502-ZERA SKIN LESIONS, OVER 4 01/11/20 21 68133-XUXH SKIN LESIONS, OVER 4 03/26/20 21 17702-UFOR SKIN LESIONS, OVER 4 05/31/20 21 51000-RBCX SKIN LESIONS, 2 TO 4 06/28/20 19 45144-TIPR SKIN LESIONS, 2 TO 4 09/22/19 20 52174-NEEI SKIN LESIONS, 2 TO 4 11/24/19 20 58387-ZSBM SKIN LESIONS, 2 TO 4 01/26/20 20 37751-HTHM SKIN LESIONS, 2 TO 4 03/29/20 20 34856-RAJQ SKIN LESIONS, 2 TO 4 06/01/20 Next Appt Details Provider Name:Mackenzie barnard, 10/22/2024 12:15:00 PM, [address] [place] [address], [phone], Insurance Providers Payer Name Payer Address Payer Phone Subscriber Number Group Number Insured Name Patient Relationship to Insured Coverage Start Date Coverage End Date Medicare National [facility] [employer] [address] [place] [address] [phone] [id number] SantoshkaceyAlysha Self - patient is the insured [employer] [address] [place] [address] [phone] [id number] Champadina Alysha Self - patient is the [...]
--- OUTSIDE RECORDS SUMMARY | 2024-10-20 10:54 | XMS_ITS ---
Author [facility] Address [address] [place] [address] Care Team Providers Care Cytology Manager Name Role Phone Jose Mahmood MD Primary Care Provider Nelda Louise Unavailable [phone] Allergies Allergen (clinical drug ingredient) Drug/Non Drug [...] Polyneuropathy due to diabetes mellitus type I (594881575) Type 1 diabetes mellitus with diabetic polyneuropathy (E10.42) Active confirmed Vital Signs Height 5ft 5in in 08/05/2024 Weight 245 lbs 08/05/2024 BMI 40.77 kg/m2 08/05/2024 Procedures Procedure Date Ordered Date Performed Result Body Sit e 98103-WIIODJP NAIL, 6 OR MORE 08/05/2024 N/A 32899-YYPB SKIN LESIONS, OVER 4 08/05/2024 N/A Encounters Encounter Location Date Provider Diagnosis [facility] [address] [place] [address] 08/05/2024 Nelda Dumont Type 2 diabetes mellitus with diabetic polyneuropathy E11.42 and Tinea unguium B35.1 Assessments Encounter Date Diagnosis (ICD Code) Assessment Notes Treatment Notes Treatment Clinical Notes Section Notes 08/05/2024 Type 2 diabetes mellitus with diabetic polyneuropathy (ICD-10 - E11.42) 08/05/2024 Tinea unguium (ICD-10 - B35.1) Plan Of Treatment Pending Test Test Name Order Date 72506-IYTQWQR NAIL, 6 OR MORE 08/05/2024 66278-DVUD SKIN LESIONS, OVER 4 08/05/20 24 Next Appt Details Follow Up: prn, Reason: Provider Name:Mackenzie Barnard Vaibhav barnard, 10/22/2024 12:15:00 PM, [address] [place] [address], [address], Procedure Notes * Category Sub-Category Detail Notes [...] use of a nail nipper and/or dremel-type emery grinder, to a more viable healthy nail plate [...] to maintain effectiveness in symptomatic relief - 17506 Keratoma Treatment Parring or Cutting o f [...] instrumentation by the physician of record - 94104 Progress Notes * Alysha DAVIS LDOB:1949 (74 yo F)Acc No.[id number]:08/05/2024 Progress Note Patient:Alysha SANTANA Provider:?Nelda Dumont DPM :1950???Age:74 Y???Sex:Female D ate:08/05/2024 Address:[address] [place], [place] [id number] Pcp:Jose Mahmood MD Subjective: * Chief Complaints: [...] cuff 2013kidney procedure 2016xecptic 2016left kidney removed 37691 back surgeries 2017right upper lung removed 2017bone growth removed upper and lower jaw 2019biopsy of chest 2019right hand carpal tunnel 2019porta cath 2019chemo radiation 2019Severs antibiotic therapy 2019tens untit placement spinal stem shoulder replacement Carple tunnel 06/25/2022 * Hospitalization/Major Diagno stic Procedure:?[facility]-[place] i night stay 10/13/2020 * Family History:?Mother: [...] kg. * Examination: ???Ophthalmology Referral: ?DIABETES EYE EXAM?Diabetic Retinopathy Screening:?Yes ?Findings of Diabetic Eye Exam:?no retinopathy?Neurological: ?SENSORY:? Neurological exam demonstrates, reduced light touch [...] use of a nail nipper and/or dremel-type emery grinder, to a more viable healthy nail plate [...] to maintain effectiveness in symptomatic relief - 74608.?Keratoma Treatment:?Parring or Cutting of Benign Hyperkeratotic Lesion(s)?(-57) [...] instrumentation by the physician of record - 82460.? * Procedure Codes:?52569 DEBRI DE NAIL, 6 OR MORE, Modifiers: XS 88300 TRIM SKIN LESIONS, OVER 4, Modifiers: XS * Follow Up:?prn * Images: * Sign off status: Completed true * Provider:?Nelda Dumont DPM Date:?1 10/06/2023 Generated for Mulugeta gudino/Josi/Shanitting on:?10/20/2024 10:53 AM EST History and Physical Notes * HPI [...]
[2024-10-20 13:51] LABS: Estimated Average Glucose 160 mg/dL; Hemoglobin A1c % 7.2 % (<6.0); Total Hemoglobin (HGBA1C) 3049.0672 umol/L
[2024-10-20 13:52] LABS: Hematocrit 37.4 % (37.0-47.0); Hemoglobin 11.7 g/dl (12.0-16.0); Mean Corpuscular HGB Conc 31.3 g/dl (31.0-35.0); Mean Corpuscular Hemoglobin 25.4 pg (27.0-33.0); Mean Corpuscular Volume 81.1 fL (80.0-98.0); Mean Platelet Volume 11.1 fL (9.4-12.3); Platelet Count 214 X10*3/uL (160-400); Red Blood Count 4.61 X10*6/uL (4.20-5.50); Red Cell Distribution Width 17.5 % (11.0-16.0); White Blood Count 5.8 X10*3/uL (4.8-10.8)
[2024-10-20 14:25] LABS: Alanine Aminotransferase 42 U/L (0-31); Alkaline Phosphatase 175 U/L (39-117); Anion Gap 13 (12-20); Aspartate Amino Transferase 55 U/L (5-31); Bilirubin Total 0.3 mg/dL (0.0-1.0); Blood Urea Nitrogen 11 mg/dL (9-16); Calcium 9.2 mg/dL (8.4-10.2); Carbon Dioxide 25 mmol/L (22-29); Chloride 109 mmol/L (96-108); Cholesterol 123 mg/dL (<200); Estimated Glomerular Filt Rate > 60; Glucose Random 100 mg/dL (60-115); HDL Cholesterol 47 mg/dL (>40); Iron 38 mcg/dL (30-160); LDL Cholesterol Calculated 59 mg/dL (<100); Percent Iron Saturation 10 % (15-50); Potassium 3.4 mmol/L (3.3-5.1); Sodium 144 mmol/L (135-145); Total Iron Binding Capacity 391 mcg/dL (228-428); Total Protein 7.2 g/dL (6.5-8.0); Triglycerides 88 mg/dL (<150); Unsaturated Iron Binding 353 ug/dL
[2024-10-20 14:27] LABS: Gamma Glutamyl Transpeptidase 102 U/L (7-33)
[2024-10-20 14:38] LABS: Ferritin 24 ng/mL (10-250); TSH reflex Free T4 1.24 uIU/mL (0.32-4.0)
[2024-10-21 07:27] LABS: Immunoglobulin A 140 mg/dL (70-320); Immunoglobulin G 902 mg/dL (600-1540)
[2024-10-21 07:33] LABS: Alpha 1 Anti-trypsin 164 mg/dL (83-199); Ceruloplasmin 26 mg/dL (14-48)
[2024-10-21 08:31] LABS: HBc Num1 0.18 S/CO (0.00-0.79); HBsAGNum1 0.51 S/CO (0.00-0.99); HIV AB/AG Nonreactive (Nonreactive); HIV Num 1 0.06 S/CO (0.00-0.99); Hepatitis B Core Antibody Nonreactive (Nonreactive); Hepatitis B Surface Antigen Negative (Negative); ~HepC Num1 0.15 S/CO (0.00-0.79); ~Hepatitis B Surface Antibody NONREACTIVE (Nonreactive); ~Hepatitis C Antibody Nonreactive (Nonreactive)
[2024-10-21 09:00] LABS: Hepatitis A Antibody IgG Nonreactive (Nonreactive); ~Hepatitis A Antibody IgG 0.28 S/CO (0.00-0.99)
[2024-10-22 10:49] LABS: Mitochondrial Antibodies NEGATIVE (NEGATIVE)
[2024-10-22 17:14] LABS: Transglutaminase IgA <1.0 U/mL
[2024-10-23 10:43] LABS: Smooth Muscle Antibody <20 U (<20)
[2024-10-23 11:39] LABS: Liver Kidney Microsomal Ab <=20.0 U (<=20.0)
[2024-10-25 10:44] LABS: Anti Nuclear Antibody Screen NEGATIVE (NEGATIVE)
== END 2024-10-20 09:33 | disposition home or self-care (01) ==
LOC: HO.HMGCX 09:32
PROVIDERS: PCP Internal Medicine; Visit Provider Internal Medicine
DX: R79.89 Other specified abnormal findings of blood chemistry (principal); R16.1 Splenomegaly, not elsewhere classified; Z11.59 Encounter for screening for other viral diseases; Z72.89 Other problems related to lifestyle
CPT/HCPCS: 36415; 76700; 80053; 80061; 80321; 82103; 82390; 82728; 82784; 82977; 83036; 83540; 84443; 85027; 86015; 86038; 86364; 86376; 86381; 86704; 86706; 86708; 86803; 87340; 87389

== ENCOUNTER → 2024-10-20 09:42 | Outpatient (BNV) | payer MEDICARE, SELFPAY | PROVIDERS: PCP Internal Medicine; Visit Provider Radiology Diagnostic Radiology | DX: K76.89 Other specified diseases of liver (principal); R16.2 Hepatomegaly with splenomegaly, not elsewhere classified | CPT/HCPCS: 76700 ==

== ENCOUNTER 2024-11-05 13:39 | Outpatient (AMB) | payer MEDICARE, SELFPAY ==
--- NOTE | 2024-11-05 13:51 | A.OFFVIS_ITS ---
Vital Signs 11/05/24 13:53 Height 5 ft 5 in Weight 240 lb 4.862 oz BMI 40.0 BP 156/68 H Blood Pressure Location Lt brachial Position Sitting Pulse 87 Intake Visit Reasons: 2 wks f/u Intake Note: Alysha presents in the office as a 2 week follow up. CC: she states that she is not having any concerns at this time. 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 Here for elevated LFTs and abnormal imaging of the liver. Pt herself does nt have any symptoms to include abdominal pain, nausea, vomiting. Has good appetite. No unintentional weight loss recently. 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 Sister with HCV due to IVDU - . Has known DM, most recent A1c 7.2. has HLD on rosuvastatin. In terms of recent adrenal met, she was determined to be a high risk for surg ical resection and she received stereotactic radiation in June 2024. The adrenal lesion has decreased in size and she has no other evidence of active atypical carcinoid tumor. 11/05/24: Here for follow up. Reports no acute issues. Has intermittent L sided pain which she isnt sure if its post radiation. Results of labs and US reviewed with the pt. Laboratory Tests 10/20/24 10:35 WBC 5.8 Hgb 11.7 L Hct 37.4 Plt Count 214 Sodium 144 Potassium 3.4 Chloride 109 H Carbon Dioxide 25 BUN 11 Creatinine 0.68 Random Glucose 100 Hemoglobin A1c % 7.2 H % Saturation 10 L Ferritin 24 Total Bilirubin 0.3 GGT 102 H AST 55 H ALT 42 H Alkaline Phosphatase 175 H Total Protein 7.2 Tonti-9-Brmqswxkhau 164 Ceruloplasmin 26 LDL Cholesterol, Calc 59 TSH 1.24 IgG 902 IgA 140 INDER Screen NEGATIVE Anti-Mitochondrial Ab NEGATIVE Anti-Smooth Muscle Ab <20 Tiss Transglutamin IgA <1.0 Daniela/Kid Microsom Ab Int <=20.0 Hepatitis A IgG Ab Nonreactive Hep Bs Antigen Negative Hep Bs Antibody NONREACTIVE Hep B Core Total Ab Nonreactive Hepatitis C Ab (EIA) Nonreactive HIV 1&2 Ab/P24 Ag 4thGn Nonreactive US ABd 10/20 Liver: The right lobe of the liver measures 20 cm in size. The left lobe of the liver measures 20 cm in size. The liver demonstrates normal homogeneous echotexture. There is a 1.2 cm cyst in the right lobe. No intrahepatic biliary ductal dilatation is identified. There is normal hepatopedal flow in the portal vein. Gallbladder and biliary tree: The gallbladder is surgically absent. The common bile duct is normal in caliber measuring 6 mm. [facility] History Diabetes Surgical History Hx of colonoscopy History of esophagogastroduodenoscopy (EGD) Review of Systems Const All systems reviewed & are unremarkable except as noted in HPI and below Physical Exam Vital Signs: Last Vital Signs Pulse 87 11/05/24 13:53 BP 156/68 H 11/05/24 13:53 BMI result Body Mass Index 40.0 No apparent distress Nonicteric Abdomen soft, nondistended, palpable hepatomegaly Alert and oriented x3, uses walker to ambulate Assessment & Plan Assessment & Plan (1) Elevated LFTs: Code(s): R79.89 - Other specified abnormal findings of blood chemistry Category: Medical (2) Hepatomegaly: Code(s): R16.0 - Hepatomegaly, not elsewhere classified (3) Carcinoid tumor: Code(s): D3A.00 - Benign carcinoid tumor of unspecified site Category: Medical (4) Iron deficiency anemia: Code(s): D50.9 - Iron deficiency anemia, unspecified Category: Medical Plan 1. Based on available data, overall assessment consistent with MAFLD/MASH. However due to underlying hx of carcinoid, will get dedicated liver imaging through MRI. Pt with MRI conditional neurostimulator. Plan: - MRI abd liver protocol - If steatosis NOT noted on MRI, will proceed with biopsy vs repeat dotatate scan 2. Pt also noted to have mild SEGRO. Reports having egd/colo a few years ago at [facility] Plan: - Start PO iron - Obtain egd/colo records - release formed signed by pt - will discuss repeat egd/colo based on response to iron supplements or if procedures >5 years ago/inadequate for exam Follow up 6 weeks after mri Orders: Orders MR abdomen wo/w con Today D3A.00 - Benign carcinoid tumor of unspecified site, R16.2 - Hepatomegaly with splenomegaly, not elsewhere classified, R79.89 - Other specified abnormal findings of blood chemistry Medications: New ferrous sulfate take with food/orange juice 325 mg PO DAILY 90 tabs 1RF Coding Level of Care Code Est Pt Level 4 (50049) Diagnoses Elevated LFTs R79.89 Hepatomegaly R16.0 Carcinoid tumor D3A.00 Iron deficiency anemia D50.9
[2024-11-05 13:53] VITALS: BP 156/68; PULSE 87; BMI 40.0
--- OUTSIDE RECORDS SUMMARY | 2024-11-05 15:14 | XMS_ITS | Patient Health Record ---
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 Name Role Phone Ela BENTLEY, Jose Primary Care Provider Unavailada e Nelda Dumont Unavailable [phone] SerranoBrianJosé Unavailable [phone] Mackenzie Cyr Unavailable [phone] Allergies Allergen (clinical drug ingredient) Drug/Non Drug Allergy documented on EMR Reaction Allergy Type Onset Date Status animals (uncoded) Unknown Allergy Ac tive erythromycin Erythromycin vomit Drug Allergy A ctive metformin Metformin HCl Unknown Drug Allergy Act ar Oyster Shell hives Drug Allergy Acti ve Seasonale Unknown Drug Allergy Active carisoprodol Soma hives Drug Allergy Acti ve Alcohol hives Drug Allergy Active Results Component Value Reference Range Notes HEMOGLOBIN A1C (GLYCOHEMOGLO BIN) Reviewed date:10/22/2024 12:21:01 PM Interpretation: Performing Lab: Notes/Report: HEMOGLOBIN A1C % (HH) 7.3 Reason For Referral No Information Medications Medication SIG (Take, Route, Frequency, Duration) Notes Start Date End Date Status Gabapentin 100 MG 4 capsules Orally three times a day Active Doxycycline Hyclate 100 MG 1 capsule Ora lly Once a day for 10 day(s) Not-Taking glipiZIDE ER 10 MG Orally Once a day Active Prochlorperazine Maleate 10 MG 1 tablet Orally Three times a day for 30 day(s) Not-Taking Furosemide Active Pantoprazole Sodium 40 MG 1 tablet Orall y Once a day for 30 day(s) Not-Taking LORazepam 0.5 MG 1 tablet as needed Orally every 6 hrs Not-Taking albuterol Not-Taking Allopurinol 300 MG 1 tablet Orally Once a day for 30 day(s) Active HYDROcodone-Acetaminophen 5-325 MG 1 tablet as needed Orally every 6 hrs Not-Taking Montelukast Sodium 10 MG 1 tablet Orally Once a day for 30 day(s) Active NovoLIN N 100 UNIT/ML as directed Subcutaneous Not-Taking oxyCODONE-Acetaminophen 5-325 MG 1 tablet as needed Orally every 6 hrs Active Brexanolone Not-Taki ng Tresiba 100 UNIT/ML as directed Active Night Splint AFO - L1930 as directed Not-Taking Breztri Aerosphere N ot-Taking Rosuvastatin Calcium 5 MG 1 tablet Orall y Once a day for 30 day(s) Active Extra Depth Diabetic Shoes with 3 Pair Custom heat-molded multi-density innersoles for 1 year Dx: Active Metoprolol Succinate ER 25 MG 1 tablet Orally Once a day for 30 day(s) Active Losartan Potassium 100 MG 1 tablet Orall y Once a day for 30 day(s) Active Doxycycline Monohydrate 100 MG 1 capsule Orally Once a day for 10 days Not-Taking Immunizations Vaccine Route Administration Date Status [...] Polyneuropathy due to diabetes mellitus type I (678722701) Type 1 diabetes mellitus with diabetic polyneuropathy (E10.42) Active confirmed Problem Chronic ulcer of foot (165092451) Non-pressure chronic ulcer of other part of left foot with fat layer exposed (L97.522) Active confirmed Problem Localized, primary osteoarthritis of the ankle and/or foot (704189476) Primary osteoarthritis, left ankle and foot (M19.072) Active confirmed Problem Non-pressure chronic ulcer of other part of left foot limited to breakdown of skin (L97.521) Active confirmed Problem Acquired hammer toe of right foot (2150823122830991 ) Other hammer toe(s) (acquired), right foot (M20.41) Active confirmed Problem Acquired hammer toe of left foot (9520969178315056 ) Other hammer toe(s) (acquired), left foot (M20.42) Active confirmed Problem Polyneuropathy due to type 2 diabetes mellitus (518777044) Type 2 diabetes mellitus with diabetic polyneuropathy (E11.42) Active confirmed Vital Signs Blood pressure diastolic 70 mm Hg 10/22/2024 Height 5FT5IN in 10/22/2024 Blood pressure systolic 120 mm Hg 10/22/2024 Weight 244 lbs 10/22/2024 BMI 40.6 kg/m2 10/22/2024 Procedures Procedure Date Ordered Date Performed Result Body Sit e 04244-BNZNXDW NAIL, 6 OR MORE 08/05/2024 N/A 38832-LBGF SKIN LESIONS, OVER 4 08/05/2024 N/A Encounters Encounter Location Date Provider Diagnosis [facility] [address] [address] 12/17/2023 José Serrano Tinea unguium B35.1 ; [...] left foot M77.42 and Ingrowing nail L60.0 [facility] [address] [address] 03/18/2024 José Serrano Tinea unguium B35.1 ; [...] left foot M77.42 and Ingrowing nail L60.[address] [address] 05/20/2024 José Serrano Tinea unguium B35.1 ; [...] left foot M77.42 and Ingrowing nail L60.[address] [address] 08/05/2024 Nelda Dumont Type 2 diabetes mellitus with diabetic polyneuropathy E11.42 and Tinea unguium B35.[address] [address] 10/22/2024 Mackenzie Cyr Type 2 diabetes mellitus with diabetic polyneuropathy E11.42 and Tinea unguium B35.[address] [address] 06/30/2024 Nelda Dumont Assessments Encounter Date Diagnosis (ICD Code) Assessment Notes Treatment Notes Treatment Clinical Notes Section Notes 12/17/2023 Tinea unguium (ICD-10 - B35.1) 12/17/2023 [...] E11.42) 08/05/2024 Tinea unguium (ICD-10 - B35.1) 10/22/2024 Type 2 diabetes mellitus with diabetic polyneuropathy (ICD-10 - E11.42) 10/22/2024 Tinea unguium (ICD-10 - B35.1) 05/20/2024 Pain [...] X ray : Foot, left 3V 03/29/2020 18151-SXKODPI NAIL, 6 OR MORE 08/05/2024 16062-AKKDCBC SKIN/TISSUE 05/29/2023 50597-MBCRKSA SKIN/TISSUE 11/05/2023 00767-WGFE SKIN LESIONS, OVER 4 08/05/20 24 48300-YZYV SKIN LESIONS, OVER 4 08/03/20 20 46755-ADXS SKIN LESIONS, OVER 4 10/18/19 21 91728-WJFP SKIN LESIONS, OVER 4 01/11/20 21 32393-BEPJ SKIN LESIONS, OVER 4 03/26/20 21 20750-LKAY SKIN LESIONS, OVER 4 05/31/20 21 70878-GBCA SKIN LESIONS, 2 TO 4 06/28/20 19 26279-IFOY SKIN LESIONS, 2 TO 4 09/22/19 20 05930-MNRS SKIN LESIONS, 2 TO 4 11/24/19 20 30044-JJLH SKIN LESIONS, 2 TO 4 01/26/20 20 26038-SFOG SKIN LESIONS, 2 TO 4 03/29/20 86837-JCAA SKIN LESIONS, 2 TO 4 06/01/20 Next Appt Details Provider Name:Mackenzie barnard, 2025 03:15:00 PM, [address] [place] [address], [place], [address], Insurance Providers Payer Name Payer Address Payer Phone Subscriber Number Group Number Insured Name Patient Relationship to Insured Coverage Start Date Coverage End Date Medicare National Govt [employer] [address] [place] [address] [id number] SantoshkaceyAlysha Self - patient is the insured [employer] [address] [place] [address] [phone] [id number] SantoshedinOlivia holdenh Self - patient is the insured Medical [...]
--- OUTSIDE RECORDS SUMMARY | 2024-11-05 15:14 | XMS_ITS | Data Portability ---
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 call 911. If you have additional concerns or develop a change in your condition between 8am-10pm, please call [facility] at [phone] to help navigate your care. Not available 08/19/2021 09:40:14 11/29/2021 [id number] -You were seen t alexa for wheezing, cough, allergies -Continue with Breo daily as a maintenance medication; use the Albuterol inhaler with a spacer for rescue medication when you are feeling short of breath/wheezy -Start Singulair 1 tablet at bedtime -Continue Flonase -NETI POT DAILY -Fluids -Do not use multi system cold/allergy meds: may use Mucinex -Follow up with your PCP in 12 days as scheduled but seek medical attention immediately if any increase shortness of breath/chest pain/fever [facility] Not available 11/29/2021 19:41:16 Reason for Referral None Reported. Results Created Date Observation Date Name Description Value Unit Range Abnormal Flag Note LastModifiedBy Organization Detail LastModifiedTime 06/26/20 21 06/26/2021 BMP + IONIZ ED CALCI UM, SERUM OR PLASM A glu 116 mg/dL 70-105 Not Available [facility] [address] [place], [address], 06/26/2021 13:45:05 06/26/20 21 06/26/2021 BMP + IONIZ ED CALCI UM, SERUM OR PLASM A BUN 15 mg/dL 8-26 Not Available [facility] [address] [place], [address], 06/26/2021 13:45:05 06/26/20 21 06/26/2021 BMP + IONIZ ED CALCI UM, SERUM OR PLASM A crea 0.7 mg/dL 0.6-1. 3 Not Available [address], [address], 06/26/2021 13:45:05 06/26/20 21 06/26/2021 BMP + IONIZ ED CALCI UM, SERUM OR PLASM A Na 137 mmol/ L 138-14 6 Not Available [address], [address], 06/26/2021 13:45:05 06/26/20 21 06/26/2021 BMP + IONIZ ED CALCI UM, SERUM OR PLASM A K 3.6 mmol/ L 3.5-4. 9 Not Available [address], [address], 06/26/2021 13:45:05 06/26/20 21 06/26/2021 BMP + IONIZ ED CALCI UM, SERUM OR PLASM A cL 101 mmol/ L 98-109 Not Available [address], [address], 06/26/2021 13:45:05 06/26/20 21 06/26/2021 BMP + IONIZ ED CALCI UM, SERUM OR PLASM A TCO2 25 mmol/ L 24-29 Not Available [address], [address], 06/26/2021 13:45:05 06/26/20 21 06/26/2021 BMP + IONIZ ED CALCI UM, SERUM OR PLASM A angap 15 mmol/ L 10-20 Not Available [address], [address], 06/26/2021 13:45:05 06/26/2006/26/2021 BMP + IONIZ ED CALCI UM, SERUM OR PLASM A ica 1.13 mmol/ L 1.12-1 .32 Not Available [facility] [address] [place], [address], 06/26/2021 13:45:05 06/26/20 21 06/26/2021 BMP + IONIZ ED CALCI UM, SERUM OR PLASM A HCT 36 %pcv 38-51 Not Available [facility] [address] [place], [address], 06/26/2021 13:45:05 06/26/20 21 06/26/2021 BMP + IONIZ ED CALCI UM, SERUM OR PLASM A Hb 12.2 g/dL 12-17 Not Available Den [facility] [address] [place], [address], 06/26/2021 13:45:05 08/19/2008/19/2021 BASIC METAB OLIC PANEL glucose 140 mg/dL (70-99 ) high Not Available [facility] (Centralized Electronic Ordering - All Locations) Patient Can Go To The Location Of Their Choice, [id number] 08/19/2021 12:24:21 08/19/2008/19/2021 BASIC METAB OLIC PANEL BUN 11 mg/dL (8-23) Not Available [facility] (Centralized Electronic Ordering - All Locations) Patient Can Go To The Location Of Their Choice, [id number] 08/19/2021 12:24:21 08/19/2008/19/2021 BASIC METAB OLIC PANEL creatinine 0.7 mg/dL (0.5-1 .0) Not Available [facility] (Centralized Electronic Ordering - All Locations) Patient Can Go To The Location Of Their Choice, [id number] 08/19/2021 12:24:21 08/19/2008/19/2021 BASIC METAB OLIC PANEL sodium 138 mmol/ L (133-1 45) Not Available [facility] (Centralized Electronic Ordering - All Locations) Patient Can Go To The Location Of Their Choice, [id number] 08/19/2021 12:24:21 08/19/2008/19/2021 BASIC METAB OLIC PANEL potassium 3.5 mmol/ L (3.6-5 .2) low Not Available [facility] (Centralized Electronic Ordering - All Locations) Patient Can Go To The Location Of Their Choice, [id number] 08/19/2021 12:24:21 08/19/20 21 08/19/2021 BASIC METAB OLIC PANEL chloride 101 mmol/ L (98-10 7) Not Available [facility] (Centralized Electronic Ordering - All Locations) Patient Can Go To The Location Of Their Choice, [id number] 08/19/2021 12:24:21 08/19/2008/19/2021 BASIC METAB OLIC PANEL bicarbonate 20 mmol/ L (22-29 ) low Not Available [facility] (Centralized Electronic Ordering - All Locations) Patient Can Go To The Location Of Their Choice, [id number] 08/19/2021 12:24:21 08/19/2008/19/2021 BASIC METAB OLIC PANEL anion gap 17 (4-17) Not Available [facility] (Centralized Electronic Ordering - All Locations) Patient Can Go To The Location Of Their Choice, [id number] 08/19/2021 12:24:21 08/19/2008/19/2021 BASIC METAB OLIC PANEL calcium 9.6 mg/dL (8.6-1 0.5) Not Available [facility] (Centralized Electronic Ordering - All Locations) Patient Can Go To The Location Of Their Choice, [id number] 08/19/2021 12:24:21 08/19/2008/19/2021 BASIC METAB OLIC PANEL estimated GFR creatinine 90 mL/mi n/1.7 3_M2 Effec tive 2020, race modif iers will no longe r be inclu ded in our creat inine -base d CKD-E PI eGFR calcu latio ns. Accor dingl y, eGFR lab repor t descr iptor s (i.e. , EST GFR NON AFRIC AN AMERI CAN, EST GFR AFRIC AN AMERI CAN) will be disco ntinu ed. Pleas e take this into accou nt when utili zing creat inine -base d formu latio ns to diagn ose and manag e chron ic kidne y disea se. Creat inine based estim ated glome rular filtr ation rate (eGFR ) is calcu lated using the Chron ic Kidne y Disea se Epide miolo gy Olivia nelson ion (CKD- EPI). The CKD-E PI avenancie marina n is not valid ated in child latrice (<18 years ), pregn ant woman or in racia l or ethni c subgr oups. Not Available [facility] (Centralized Electronic Ordering - All Locations) Patient Can Go To The Location Of Their Choice, [id number] 08/19/2021 12:24:21 08/19/2008/19/2021 COMPL ETE CBC WITH DIFF WBC 7.8 K/mm3 (4.0-1 1.0) Not Available [facility] (Centralized Electronic Ordering - All Locations) Patient Can Go To The Location Of Their Choice, [id number] 08/19/2021 12:26:53 08/19/2008/19/2021 COMPL ETE CBC WITH DIFF RBC 4.72 M/mm3 (4.20- 5.40) Not Available [facility] (Centralized Electronic Ordering - All Locations) Patient Can Go To The Location Of Their Choice, [id number] 08/19/2021 12:26:53 08/19/20 21 08/19/2021 COMPL ETE CBC WITH DIFF HGB 12.2 gm/dL (11.7- 15.5) Not Available [facility] (Centralized Electronic Ordering - All Locations) Patient Can Go To The Location Of Their Choice, [id number] 08/19/2021 12:26:53 08/19/2008/19/2021 COMPL ETE CBC WITH DIFF HCT 38.3 % (35.7- 45.8) Not Available [facility] (Centralized Electronic Ordering - All Locations) Patient Can Go To The Location Of Their Choice, [id number] 08/19/2021 12:26:53 08/19/20 21 08/19/2021 COMPL ETE CBC WITH DIFF MCV 81.1 fL (80.0- 100.0) Not Available [facility] (Centralized Electronic Ordering - All Locations) Patient Can Go To The Location Of Their Choice, [id number] 08/19/2021 12:26:53 08/19/20 21 08/19/2021 COMPL ETE CBC WITH DIFF MCH 25.8 pg (27.0- 34.0) low Not Available [facility] (Centralized Electronic Ordering - All Locations) Patient Can Go To The Location Of Their Choice, 08/19/2021 12:26:53 08/19/2008/19/2021 COMPL ETE CBC WITH DIFF MCHC 31.9 g/dL (33.0- 37.0) low Not Available [facility] (Centralized Electronic Ordering - All Locations) Patient Can Go To The Location Of Their Choice, 08/19/2021 12:26:53 08/19/20 21 08/19/2021 COMPL ETE CBC WITH DIFF plt 278 K/mm3 (150-4 60) Not Available [facility] (Centralized Electronic Ordering - All Locations) Patient Can Go To The Location Of Their Choice, 08/19/2021 12:26:53 08/19/20 21 08/19/2021 COMPL ETE CBC WITH DIFF RDW-SD 49.7 fL (<47.0 ) high Not Available [facility] (Centralized Electronic Ordering - All Locations) Patient Can Go To The Location Of Their Choice, 08/19/2021 12:26:53 08/19/2008/19/2021 COMPL ETE CBC WITH DIFF MPV 11.5 fL (9.4-1 2.4) Not Available [facility] (Centralized Electronic Ordering - All Locations) Patient Can Go To The Location Of Their Choice, 08/19/2021 12:26:53 08/19/2008/19/2021 COMPL ETE CBC WITH DIFF automated NRBC 0.0 #/100 _WBC' s Not Available [facility] (Centralized Electronic Ordering - All Locations) Patient Can Go To The Location Of Their Choice, 08/19/2021 12:26:53 08/19/2008/19/2021 COMPL ETE CBC WITH DIFF abs. NRBC 0.0 K/mm3 Not Available [facility] (Centralized Electronic Ordering - All Locations) Patient Can Go To The Location Of Their Choice, 08/19/2021 12:26:53 08/19/20 21 08/19/2021 COMPL ETE CBC WITH DIFF neut # 5.8 K/mm3 (1.3-7 .0) Not Available [facility] (Centralized Electronic Ordering - All Locations) Patient Can Go To The Location Of Their Choice, 08/19/2021 12:26:53 08/19/2008/19/2021 COMPL ETE CBC WITH DIFF lymph # 1.3 K/mm3 (0.8-3 .1) Not Available [facility] (Centralized Electronic Ordering - All Locations) Patient Can Go To The Location Of Their Choice, 08/19/2021 12:26:53 08/19/2008/19/2021 COMPL ETE CBC WITH DIFF mono# 0.5 K/mm3 (0.4-0 .9) Not Available [facility] (Centralized Electronic Ordering - All Locations) Patient Can Go To The Location Of Their Choice, 08/19/2021 12:26:53 08/19/2008/19/2021 COMPL ETE CBC WITH DIFF eo # 0.1 K/mm3 (0.0-0 .4) Not Available [facility] (Centralized Electronic Ordering - All Locations) Patient Can Go To The Location Of Their Choice, 08/19/2021 12:26:53 08/19/2008/19/2021 COMPL ETE CBC WITH DIFF baso # 0.0 K/mm3 (0.0-0 .1) Not Available [facility] (Centralized Electronic Ordering - All Locations) Patient Can Go To The Location Of Their Choice, 08/19/2021 12:26:53 08/19/2008/19/2021 COMPL ETE CBC WITH DIFF abs. imm gran 0.0 K/mm3 Not Available [facility] (Centralized Electronic Ordering - All Locations) Patient Can Go To The Location Of Their Choice, 08/19/2021 12:26:53 08/19/2008/19/2021 COMPL ETE CBC WITH DIFF neut 75.2 % (44-76 ) Not Available [facility] (Centralized Electronic Ordering - All Locations) Patient Can Go To The Location Of Their Choice, 08/19/2021 12:26:53 08/19/20 21 08/19/2021 COMPL ETE CBC WITH DIFF lymph 16.3 % (15-43 ) Not Available [facility] (Centralized Electronic Ordering - All Locations) Patient Can Go To The Location Of Their Choice, 08/19/2021 12:26:53 08/19/202021 COMPL ETE CBC WITH DIFF monocyte 6.2 % (4.5-1 0.5) Not Available [facility] (Centralized Electronic Ordering - All Locations) Patient Can Go To The Location Of Their Choice, [id number] 08/19/2021 12:26:53 08/19/20 21 08/19/2021 COMPL ETE CBC WITH DIFF eo 1.5 % (0-6) Not Available [facility] (Centralized Electronic Ordering - All Locations) Patient Can Go To The Location Of Their Choice, [facility] 08/19/2021 12:26:53 08/19/20 21 08/19/2021 COMPL ETE CBC WITH DIFF baso 0.3 % (0-2) Not Available [facility] (Centralized Electronic Ordering - All Locations) Patient Can Go To The Location Of Their Choice, [facility] 08/19/2021 12:26:53 08/19/20 21 08/19/2021 COMPL ETE CBC WITH DIFF imm gran 0.5 % Not Available [facility] (Centralized Electronic Ordering - All Locations) Patient Can Go To The Location Of Their Choice, [facility] 08/19/2021 12:26:53 08/19/20 21 08/19/2021 COVID -19 (NOVE L CORON AVIRU S) PCR covid-19 PCR specimen source NASAL Not Available [facility] (Centralized Electronic Ordering - All Locations) Patient Can Go To The Location Of Their Choice, [facility] 08/20/2021 16:13:53 08/19/20 21 08/20/2021 COVID -19 (NOVE L CORON AVIRU S) PCR covid-19 PCR result (neg) normal NEGAT KIEL 2019- novel Coron aviru s (2018 -nCoV ) not detec suzanne by real- time RT-PC R. Note: If clini arsalan suspi cion for COVID -19 is high, vijay nue to maint ain preca ution s and consi ankush repea t testi ng. Resul t repor suzanne to the [facility]. To preve nt error s in diagn osis, test resul ts shoul d be inter prete d in the josi xt of clini arsalan findi ngs and other labor atory data. Rare polym orphi sms exist that could lead to false -nega tive or false -posi tive resul ts. If resul ts obtai adry do not match the clini arsalan findi ngs, addit ional testi terese shomichael d be consi dered . This test has been autho rized by the FDA under an Emerg ency Use Autho rizat ion (EUA) for use by autho rized labor atori es. Testi ng perfo rmed by real time PCR utili [employer] SARS- CoV-2 test. Not Available [facility] (Centralized Electronic Ordering - All Locations) Patient Can Go To The Location Of Their Choice, [id number] 08/20/2021 16:13:53 Result Notes None recorded. Procedures Surgical History Date Name Laterality Status Provider Name and Address Organization Details Recorded Time 08/19/20 21 IV Start Procedure - completed AISHWARYA BORDEN NP [address] [place], [address], [place] [facility] 08/19/2021 09:29:17 06/26/20 21 Medication Review completed AISHWARYA BORDEN NP [address] [place], [address], [place] [facility] 06/26/2021 13:59:06 06/26/20 21 Venipuncture - completed AISHWARYA BORDEN NP [address] [place], [address], [place] [facility] 06/26/2021 14:04:41 06/20/20 21 arthroplasty of left shoulder completed AISHWARYA BORDEN NP [address] [place], [address], [place] [facility] 06/26/2021 13:08:15 06/04/20 17 total pneumonectomy completed AISHWARYA BORDEN NP [address] [place], [address], [place] [facility] 06/26/2021 13:09:37 06/26/20 16 total nephrectomy completed AISHWARYA BORDEN NP [address] [place], [address], [place] [facility] 06/26/2021 13:10:12 open reduction of fracture with internal fixation completed AISHWARYA BORDEN NP [address] [place], [address], [place] [facility] 06/26/2021 14:26:35 Imaging Results None recorded. Procedure Notes None recorded. Medical Equipment None Reported. Allergies Allergen ID Allergen Name Allergen Category Reaction Reaction Severity Criticality Documentation Date Start Date Code Code System Note Provider Name and Address Organization Details Recorded Time 603787 metformin medicatio n Not available Not available Not available 03/25/2020 6809 [facility] SAMSON MISAEL, PA [address], [place], [address], [place] [facility] 0 09:04:29 [id number] Soma medicatio n Not available Not available Not available 03/25/2020 04323 2 [facility] SAMSON FLORESTERRENCE, PA [address], [place], [address], [place] [facility] 0 09:04:35 [id number] isopropyl alcohol medicatio n Not available Not available Not available 03/25/2020 68514 1 RxNorm RAINERDemetri DOUGLAS PA [address], [place], [address], [place] [facility] 0 09:05:05 [id number] erythromy leona medicatio n Not available Not available Not available 03/25/2020 4053 RxNorm SAMSON FLORESTERRENCE PA [address], [place], [address], [place] [facility] 0 09:08:03 Medications Name Sig Start Date Stop Date Status Note LastModified by Organization Details LastModified Time cyclobenzap rine 10 mg tablet 11/29 completed Not Available Not Available Not Available furosemide 40 mg tablet active Not Available Not Available Not Available betamethaso ne valerate 0.1 % topical ointment 11/29 completed Not Available Not Available Not Available nystatin 100,000 unit/mL oral suspension Take 5 mL 4 times a day by oral route as directed for 10 days. active Not Available Not Available No t Available doxycycline hyclate 100 mg capsule 06/26 completed Not Available Not Available Not Available Novolin N NPH U-100 Insulin isophane 100 unit/mL subcutaneou s susp 03/25 completed Not Available Not Available Not Available fluconazole 150 mg tablet 03/25 completed Not Available Not Available Not Available benzonatate 200 mg capsule Take 1 capsule 3 times a day by oral route as needed for 10 days. 2021 active Not Available Not Available Not Avai lable hydrocodone 5 mg-acetamin ophen 325 mg tablet 11/29 completed Not Available Not Available Not Available glipizide ER 10 mg tablet, extended release 24 hr active Not Available Not Available Not Available glipizide 10 mg tablet active Not Available Not Available Not Available gabapentin 400 mg capsule 06/26 completed Not Available Not Available Not Available prochlorper azine maleate 10 mg tablet 03/25 completed Not Available Not Available Not Available oxycodone-a cetaminophe n 5 mg-325 mg tablet active Not Available Not Available No t Available alprazolam 0.5 mg tablet 03/25 completed Not Available Not Available Not Available ofloxacin 0.3 % ear drops 11/29 completed Not Available Not Available Not Available lorazepam 0.5 mg tablet 06/26 completed Not Available Not Available Not Available baclofen 10 mg tablet 11/29 completed Not Available Not Available Not Available pantoprazol e 40 mg tablet,magaly yed release 03/25 completed Not Available Not Available Not Available gabapentin 300 mg capsule 06/26 completed Not Available Not Available Not Available hydrocortis one 2.5 % topical cream 11/29 completed Not Available Not Available Not Available montelukast 10 mg tablet Take 1 tablet every day by oral route at bedtime. active Not Available Not Available No t Available allopurinol 300 mg tablet active Not Available Not Available Not Available gabapentin 100 mg capsule active Not Available Not Available Not Available sodium chloride 0.9 % intravenous solution 500 ml administe red on scene. Time administe red: 901 - 11/29 completed Not Available Not Available Not Available metoprolol succinate ER 25 mg tablet,exte nded release 24 hr active Not Available Not Available Not Available albuterol sulfate HFA 90 mcg/actuati on aerosol inhaler Inhale 2 puffs every 4 hours by inhalatio n route as needed. active Not Available Not Available No t Available SSD 1 % topical cream APPLY A 1/16 INCH (1.5 MM) THICK LAYER TO ENTIRE BURN AREA BY TOPICALRO LIZ 2 TIMES PER DAY active Not Available Not Available No t Available ondansetron 4 mg disintegrat ing tablet Place 2 tablets twice a day by transling ual route for 5 days. active Not Available Not Available No t Available Zofran 2 mg/mL intravenous solution 4 mg IV administe red on scene. Time administe red: 11/29 completed Not Available Not Available Not Available losartan 100 mg tablet active Not Available Not Available Not Available doxycycline hyclate 100 mg tablet 03/25 completed Not Available Not Available Not Available naproxen 500 mg tablet 11/29 completed Not Available Not Available Not Available diazepam 5 mg tablet 03/25 completed Not Available Not Available Not Available amoxicillin 500 mg-potassiu m clavulanate 125 mg tablet TAKE 2 TABLETS BY MOUTH TWO TIMES A DAY 03/25 completed Not Available Not Available Not Available oxycodone 5 mg tablet active Not Available Not Available No t Available rosuvastati n 5 mg tablet active Not Available Not Available Not Available duloxetine 30 mg capsule,del ayed release 11/29 completed Not Available Not Available Not Available olopatadine 0.2 % eye drops active Not Available Not Available Not Available BD Insulin Syringe Ultra-Fine 1 mL 31 gauge x 01/07 active Not Available Not Available Not Available potassium chloride ER 20 mEq tablet,exte nded release 11/29 completed Not Available Not Available Not Available OxyContin 20 mg tablet,steven h resistant,e xtended release 03/25 completed Not Available Not Available Not Available OxyContin 10 mg tablet,steven h resistant,e xtended release 03/25 completed Not Available Not Available Not Available Breo Ellipta 200 mcg-25 mcg/dose powder for inhalation active Not Available Not Available N ot Available Ozempic 0.25 mg or 0.5 mg (2 mg/1.5 mL) subcutaneou s pen injector active Not Available Not Available Not Available Vitals Date Recorded Body temperature Oxygen saturation Oxygen saturation in Arterial blood by Pulse oximetry Respiratory rate Heart rate Systolic blood pressure Diastolic blood pressure Provider Name and Address Organization Details Last Updated DateTime 0 97.9 [degF] 98 % 98 % 18 /min 82 /min 156 mm[Hg] 82 mm[Hg] Not Available [facility] 0 17:48:56 Date Recorded Heart rate Oxygen saturation Oxygen saturation in Arterial blood by Pulse oximetry Body temperature Respiratory rate Systolic blood pressure Diastolic blood pressure Provider Name and Address Organization Details Last Updated DateTime 1 88 /min 96 % 96 % 98.3 [degF] 20 /min 154 mm[Hg] 58 mm[Hg] Not Available [facility] 1 12:47:17 Date Recorded Oxygen saturation Oxygen saturation in Arterial blood by Pulse oximetry Respiratory rate Body temperature Heart rate Systolic blood pressure Diastolic blood pressure Provider Name and Address Organization Details Last Updated DateTime 1 93 % 93 % 20 /min 99 [degF] 94 /min 148 mm[Hg] 62 mm[Hg] Not Available [facility] 1 09:40:31 Date Recorded Body temperature Heart rate Respiratory rate Oxygen saturation Oxygen saturation in Arterial blood by Pulse oximetry Systolic blood pressure Diastolic blood pressure Provider Name and Address Organization Details Last Updated DateTime 2 98.8 [degF] 88 /min 20 /min 96 % 96 % 160 mm[Hg] 80 mm[Hg] Not Available [facility] 2 19:00:18 Date Recorded Body temperature Heart rate Oxygen saturation Oxygen saturation in Arterial blood by Pulse oximetry Respiratory rate Systolic blood pressure Diastolic blood pressure Provider Name and Address Organization Details Last Updated DateTime 2 97.8 [degF] 78 /min 96 % 96 % 24 /min 152 mm[Hg] 80 mm[Hg] Not Available [facility] 2 09:11:08 Social History Question Answer Notes LastModified by Organization Details LastModified Time Tobacco Smoking Status Former Smoker AISHWARYA BORDEN NP [address], [place], [address], [place] [facility] 06/26/2021 12:41:42 Do You Have An Advance Directive? No [email or web address] Information not available 06/26/2021 What Is Your Level Of Alcohol Consumption? None [email or web address] Information not available 06/26/2021 What Is Your Code Status? Full Code [email or web address] Information not available 06/26/2021 Within The Past 12 Months, Has It Happened That The Food You Bought Just Didn't Last And You Didn't Have Money To Get More. No Information not available 06/26/2021 Within The Past 12 Months, Have You Worried That Your Food Would Run Out Before You Got Money To Buy More. No [email or web address] Information not available 06/26/2021 Fall Risk: Do You Feel Unsteady When Standing Or Walking? Yes I Don't Always Feel Steady On My Feet Especially When My Blood Sugars Are Low [email or web address] Information not available 06/26/2021 We Know That How And When People Interact With Friends And Family Can Be Very Different From Person To Person. How Often Do You Have The Opportunity To See Or Talk To People That You Care About And Feel Close To? (Ex: Talking To Friends On The Phone Or Visiting Friends Or Family Or Going To [employer]ai Or Club Meetings) 3 Or 4 Times Per Week Information not available 06/26/2021 Excessive Alcohol Or Drug Use No [email or web address] Information not available 06/26/2021 Symptoms Score - Does The Patient Have Ongoing Or Worsening Symptoms Relevant To His Or Her Condition? No - Low Risk [email or web address] Information not available 06/26/2021 Skilled Needs -Does The Patient Have Skilled Needs (PT/OT/Wound Care) That Were Not Arranged At The Time Of Hospital Discharge Or That Were Arranged But Not Happening As Intended? No - Low Risk [email or web address] Information not available 06/26/2021 Medications - Is The Patient/caregiv er Able To Describe Current Medication Management Strategy? Yes - Low Risk [email or web address] Information not available 06/26/2021 Information - Is The Patient/caregiv er Able To Describe Condition, Discharge Information, And Red Flag Symptoms? Yes - Low Risk [email or web address] Information not available 06/26/2021 Linked-Up - Does The Patient Have LIMITED OR NO Access To Any Of The Following? Does Have Access To Healthcare And Social Support And Nutrition - Low Risk Information not available 06/26/2021 Engagement - Does The Patient/caregiv er Show Engagement Around Partnering Around Care Plan? Yes - Low Risk [email or web address] Information not available 06/26/2021 Does This Patient Have A PCP? Yes Information not available 06/26/2021 We Know From Many Of Our Patients That Covering All Of Their Costs Can Be Difficult At Times. This Can Cause Stress And Impact Health. In The Past Year, Have You Been Unable To Get Any Of The Following When It Was Really Needed? No [email or web address] Information not available 06/26/2021 What Is Your Housing Situation Today? I Have Housing Information not available 06/26/2021 Would You Like Help Connecting To Resources? None [email or web address] Information not available 06/26/2021 Do You Use Any Illicit Or Recreational Drugs? No [email or web address] Information not available 06/26/2021 How Many Years Have You Smoked Tobacco? 20 [email or web address] Information not available 06/26/2021 Do You Or Have You Ever Used Any Other Forms Of Tobacco Or Nicotine? No [email or web address] Information not available 06/26/2021 Sex: Unknown Functional Status None recorded. Mental Status None recorded. Family History Relationship Description Onset Age of this Age Resolved Age Notes LastModified by Organization Details LastModified Time Father Coronary arterioscler osis [email or web address] Not available 2020 12:40:52 Mother Coronary arterioscler osis [email or web address] Not available 2020 12:41:06 Medical History Condition Response Coronary Artery Disease N COPD N Depression N Cancer Y Stroke N High Cholesterol Y Kidney Disease N Diabetes Y Asthma N Pulmonary Embolism N Hypertension Y Gynecological HistoryNo gynecological history recorded. Obstetrics History GPAL:G 0 P 0 0 0 0 Past Encounters Encounter ID Performer Location Encounter Start Date Encounter Closed Date Diagnosis/Indication Diagnosis SNOMED-CT Code Diagnosis ICD10 Code Diagnosis Note [id number] [facility]I DAVID[facility] [address] [facility] [place] [place] [address] 03/25/2020 09:02:55 03/28/2020 09:43:22 Epidermal burn of skin 551866690 T14.8XXA [id number] DAINA DALAL NP [facility] [address] [facility] [place] [place] [address] 03/28/2020 17:45:07 03/29/2020 15:41:19 Epidermal burn of skin 824725617 T14.8XXD [id number] AISHWARYA BORDEN NP [facility] [address] [facility] [place] [place] [address] 06/26/2021 12:38:17 07/03/2021 11:31:35 Unintentional weight gain 2691205456 09070 R63.5 improving History of total arthroplasty of left shoulder 9549382394 5676570 Z96.612 seven days ago Type 2 toya betes mellitus 29509712 E11.9 Swelling o f bilateral lower limbs 862223202 M79.89 much improved [id number] [facility] [address] [place] [address] 08/19/2021 08:35:29 08/23/2021 19:59:40 Viral syndrome 391997207 B34.9 Nausea 251178858 R11.0 Diarrhea 85896455 R19.7 Exposure t o communicable disease 860463561 Z20.822 [id number] Pura Friend NP [facility] [address] [place] [address] 11/29/2021 18:53:22 11/30/2021 11:01:26 Seasonal allergic rhinitis 176801931 J30.2 Cough 09158495 R05.1 [id number] RANDI Mario [facility] [address] [place] [address] 01/19/2022 08:24:38 01/24/2022 09:34:39 Pharyngeal candidiasis 505497652 B37.0 Dry cough 86945751 R05.9 Seasonal a llergic rhinitis 662805687 J30.2 Health Concerns Section Related Observation LastModified by Organization Detai ls LastModified Time None Recorded Concern Status LastModified by Organization Details LastModified Time None Recorded Advance Directives Directive N: Payers Encounter Date Sequence Insurance Name Policy Number Policy Mayorga Covered Member ID Mayorga Member ID Guarantor Name 03/28/2020 1 [place] [employer] Alysha L Pouliot [id number] 2 Alysha Pouliot 03/28/2020 2 [facility] [id number] Alysha Pouliot [id number] 28 Alysha Pouliot 06/26/2021 1 [place] [employer] [employer] Alysha L Pouliot [id number] 2 Alysha Pouliot 06/26/2021 2 [place] [id number] Alysha Pouliot [id number] 28 Alysha Pouliot 08/19/2021 1 [place] [employer] [place] Alysha L Pouliot [id number] 2 Alysha Pouliot 08/19/2021 2 [place] [id number] Alysha Pouliot [id number] 28 Alysha Pouliot 11/29/2021 1 [place] [facility] [place]MENT SERVICES Alysha L Pouliot [id number] 2 Alysha Pouliot 11/29/2021 2 [place] [id number] Alysha Pouliot [id number] 28 Alysha Pouliot 01/19/2022 2 [place] [id number] Alysha Pouliot [id number] 28 Alysha Pouliot 01/19/2022 1 [place] [facility] SERVICES Aylsha L Pouliot [id number] 2 Alysha Pouliot Notes Date Note Type Note Provider Name and Address Organization Details Recorded Time 03/28/2020 text/html This is a very pleasant 70-year-old female that is known to [facility] but new to this provider. She has a medical history that includes cancer to the lung, esophagus and thyroid, diabetes, hyperlipidemia and hypertension. She had contacted [facility] several days ago after getting hot tea on her hand and she was concerned for burn. At that time there was no blistering and she had run her hand after cold water with some relief. She was instructed by another provider to monitor the area and if there were signs of blistering or infection to call her PCP or [facility] for further evaluation. She tells me that the area has been blistering and she has been trying to keep it clean and has been applying bacitracin ointment to the area. Given that she is a diabetic she wanted the area to be further evaluated again by [facility]. DAINA DALAL NP [address], [place], [address], [place] [facility] 03/28/2020 19:45:15 06/26/2021 text/html 71 yo female who is known to but new to this provider. Her PMHx includes Cancer of the lung s/p pneumonectomy (right, 2016), Esophagus (rad/chemo), Kidney s/p nephrectomy (left, 2015), NIDDM(on Ozempic [GLP-1 Receptor Agonist Analog]), HLD, HTN. Patient is s/p left total shoulder arthroplasty on 06/20/21, discharged from hospital on 06/21/21. Patient endorses weighing herself the morning of surgery at 255lbs and on 06/22/21 she states she weighed herself and was 266lbs and on 06/23/21 she states she was 264lbs. On Friday06/22/21 she called her PCPs office the diabetic nurse who spoke with PCP and her Lasix was increased to 80mg PO BID and then spoke again with diabetes nurse on Friday06/25/21 and patient reported her weight was 261 and reported her BLEs felt tight and hard and nurse spoke with PCP who set-up PACFU with today. Patient states feel her legs are not as tight can fit her left foot in her shoe today as apposed to being difficult to do on Friday where she states it was tight, Left > Right. She endorses performing her standing pendulum exercises w/o any problems. She endorses no increased left shoulder pain from her baseline which she states is at 6/10 and with her prescribed oxycodone she states it brings it down to a 5/10. She endorses bruising her bruising around her dressing is becoming less and it seems to be traveling down her arm. She denies any visible redness, increased swelling or radiating heat; [facility] DSG is intact. She states she has a RECORDS MANAGEMENT ASSISTANT coming twice per week to help with cleaning, bathing, and post-op she has been doing a little more. She states follow-up appointment orthopedic surgeon on 06/28/21 where part of the discussion will be about setting up PT/OT. Her next PCP appointment is in August,. Patient endorsed she called the [facility] and set-up a ride to her appointment w/[facility] on 06/28/21. She denies any fever, chills, NICHOLAS, runny nose, congestion, sore throat, cough, chest pain, palpitations, abdominal, nausea, vomiting, dark black stool; last BM yesterday she states she thinks it was a tad different d/t the pain medication, she did not notice and bright red blood; states she takes OTC stool softener. AISHWARYA BORDEN NP [address], [place], [address], [place] [facility] 06/26/2021 15:13:40 08/19/2021 text/html 71 yo female who is known to and to this provider. PMHx includes Cancer of the lung s/p pneumonectomy (right, 2016), Esophagus (rad/chemo), Kidney s/p nephrectomy (left, 2015), NIDDM(on Ozempic [GLP-1 Receptor Agonist Analog]), HLD, HTN. Patient is s/p left total shoulder arthroplasty on 06/20/21, discharged from hospital on 06/21/21.She endorses she is Fully vaccinated w/booster against COVID 19, Denies any sick contacts. States 7 days of progressive sinus congestion, soar throat, mildly elevated temp, diarrhea, nausea. She reports 14 lbs weight loss during this period. She endorses her BS of 107 this morning, Tylenol with relief of elevated temp., diarrhea stopped 4 days ago, nausea continues to hinder diet. She states she called doctor on Friday; office was closed. Endorses symptoms remaining; feeling hot, cold, nausea coming in waves. AISHWARYA BORDEN NP [address], [place], [address], [place] [facility] 08/19/2021 11:10:15 11/29/2021 text/html 71 year old fema le known to but new to provider with history of lung cancer with RUL lobectomy, esophageal and thyroid CA; DM, HTN, HLD and seasonal allergies being seen today for question of new-onset wheezing with allergy symptoms. Was on Breo but stopped for about 2.5 months due to cost but has one last diskus for which she started today. No longer has any more albuterol. Uses benedryl for allergy symptoms but complains of sinus pressure and itchy throat, dizziness. Just restarted Flonase. Goes to PT and was unable to continue last week due to shortness of breath and wheeze with mask on. No fever, occ chills. PND cough. No chest pain, more tightness with breathing. No abd pain, N/V/D. No urinary symptoms. Rapid COVID negative Pura Friend NP [address], [place], [address], [place] [facility] 11/29/2021 19:47:03 01/19/2022 text/html 72 YO F known to and new to provider4 days of increased allergy sx'sSeems PCP wanted patient to be seen and evaluated in person as she reports she called their office yesterday and stated she was wheezing somewhat. She was booked as first appointment of the day for this reason.She denies any wheezing at time of visit and when it does occur her inhlaer takes care of it.She does endorse a dry cough, PND, and increased nasal congestion since the tree pollen has come out .She has appointment in less than 2 weeks w/ her PCP.Otherwise she has no other complaints today she denies fever, chills, sinus pressure, sore throat, difficulty swallowing, current wheezing, prod cough (she does have annoying dry cough however), SOB, cp. She has no other reported sxs today. RANDI Broussard [address], [place], [address], [place] [facility] 01/19/2022 09:49:14 OBGyn Episode No OBEpisode recorded.
--- OUTSIDE RECORDS SUMMARY | 2024-11-05 15:14 | XMS_ITS | Continuity of Care Document ---
Author Organization [facility] Address [address] [place] [address]- Care Team Providers Care Fire Lieutenant Name Role Phone Ela BENTLEY, Jose Springer Primary Care Physician [phone] Encounter [facility] [place] Date(s): 09/10/24 - 10/10/24 [facility] [address] [place] [address] Encounter Type: Triage Allergies, Adverse Reactions, Alerts Substance Criticality Severity Reaction Reaction Severity Status erythromycin vomit Active isopropyl alcohol topical blisters skin reaction Active Soma hives Active Pollen sneezing, post nasal drip, phlegm Active Lovenox 1 unknown Active Animal Dander Active Oyster throat closes up A ctive Rubbing Alcohol Wipes Hives Active metFORMIN diarrhea Active 1localized skin reaction, large hives Immunizations Given and Recorded Vaccine Date Status Refusal Reason Influenza Virus Vaccine (oldterm) 1 06/04/24 Recor ded SARS-CoV-2 mRNA (hmkauhr-mtkj-ztxmj) vax 2 06/04/24 Recorded SARS-CoV-2 mRNA (wjlplzd-youm-lnpyi) vax 12/07/21 Recorded SARS-CoV-2(COVID-19)mRNA-LNP vac(rfp510) 3 08/15/23 Given influenza virus vaccine, inactivated [...] Recorded zoster vaccine, inactivated 6 09/22/22 Recorded [id number]-WeW-3sNTR 12y+ bivalent booster vax 05/30/22 Recorded SARS-CoV-2 (COVID-19) mRNA BNT-162b2 vac 06/16/21 Recorded SARS-CoV-2 (COVID-19) mRNA BNT-162b2 vac 12/13/20 Recorded SARS-CoV-2 (COVID-19) mRNA BNT-162b2 vac 11/21/20 Recorded pneumococcal 23-valent vaccine 03/17/18 Given pneumococcal 13-valent vaccine 05/24/16 Given tetanus/diphtheria/pertussis, acel(Tdap) 12/06/15 Given 1Result Comment: [facility] 2Result Comment: [facility] 3Result Comment: [facility] [id number] 4Result Comment: [facility]: [id number] Screening checklist was completed. 5Location History: [facility] 6Result Comment: [facility] Medications acetaminophen-oxyCODONE 325 [...] 5 Refills, Maintenance, 06/24/24 1:40:00 PM EDT, [facility], 25, 2 puffs Inhalation Every 6 hours,PRN: NEEDED FOR WHEEZING, 166, cm, 06/18/24 6:52:00 EDT, Height, 117, kg, 06/18/24 6:52:00 EDT, Dry Weight Start Date: 06/24/24 Status: Ordered Quantity: 8.5 Unit: g Repeat number: 6 allopurinol 300 mg oral tablet 1, tablet, By Mouth, Daily, # 30 tablet, Refills 5, Maintenance, 01/14/24 1:50:00 PM EDT, Route to Pharmacy Electronically, [facility], 166, cm, 12/22/23 15:01:00 EDT, Height, 109.6, kg, 12/03/23 14:37:00 EDT, Dry Weight Start Date: 01/14/24 Status: Ordered Quantity: 30.0 Unit: tablet Repeat number: 1 barium sulfate 2% oral suspension See Instructions, 2 premix 450ml bottles, take as directed for CT scan., # 900 mL, 0 Refills, Maintenance, 09/10/24 3:20:00 PM EST, [facility], Partial fill upon patient request if the prescription is for a schedule II opioid drug., 2 premix 450ml bottles, take as directed for CT scan., 166, cm, 09/06/24 13:27:00 EST, Height, 111.3, kg, 09/06/24 11:46:00 EST, Dry Weight Start Date: 09/10/24 Status: Ordered Quantity: 900.0 Unit: mL Repeat number: 1 Alyssa KwomidPen 100 units/mL subcutaneous solution = 76 units, Subcutaneous Infusion, Daily, Increase 2 units every 3 days until FBS < 130 per PCP Max dose 100 units qday Replaces Tresiba, # 10 each, 5 Refills, Maintenance, 09/07/24 8:42:00 AM EST, [facility] # [facility], Partial fill upon patient request if the prescription is for a schedule II opioid drug., 166, cm, 09/06/24 13:27:00 EST, Height, 111.3, kg, 09/06/24 11:46:00 EST, Dry Weight Start Date: 09/07/24 Status: Ordered Quantity: 10.0 Unit: each Repeat number: 6 Breztri Aerosphere inhalation aerosol 2 inhalation, Inhalation, 2 times a day, bid per green ware caster, 0 Refills, Maintenance, 08/10/24 11:00:00 AM EST, [...] 1:52:00 PM EST, Route to Pharmacy Electronically, [facility], 166, cm, 09/06/24 13:27:00 [...] 1 Refills, Maintenance, 09/06/24 1:53:00 PM EST, [facility], 166, cm, 09/06/24 13:27:00 EST, Height, 111.3, kg, 09/06/24 11:46:00 EST, Dry Weight Start Date: 09/06/24 Status: Ordered Quantity: 180.0 Unit: tablet Repeat number: 2 losartan 100 mg oral tablet 1 tablet, By Mouth, Daily, # 30 tablet, 5 Refills, Maintenance, 07/13/24 2:49:00 PM EST, [facility], 166, cm, 07/12/24 13:45:00 EST, Height, 114.7, kg, 07/12/24 13:45:00 EST, Dry Weight Start Date: 07/13/24 Status: Ordered Quantity: 30.0 Unit: tablet Repeat number: 1 Metoprolol Succinate ER 25 mg oral tablet, extended release 1, tablet, By Mouth, Daily, # 90 tablet, Refills 1, Tot. Refills 1, Maintenance, 09/06/24 1:53:00 PMEST, Route to Pharmacy Electronically, [facility], 166, cm, 09/06/24 13:27:00 [...] Replace Required Details, Route to Pharmacy Electronically, [facility], 166, cm, 05/03/24 13:27:00 EDT, Height, 111.6, kg, 05/03/24 13:27:00 EDT, Dry Weight Start Date: 05/19/24 Status: Ordered Quantity: 28.0 Unit: tablet Repeat number: 1 Pen [place], 31 G x 5 mm BD Ultra [...] Daily, # 28 tablet, 5 Refills, Maintenance, 09/29/24 10:46:00 AM EST, [facility], 166, cm, 09/06/24 13:27:00 EST, Height, 111.3, kg, 09/06/24 11:46:00 EST, Dry Weight Start Date: 09/29/24 Status: Ordered Quantity: 28.0 Unit: tablet Repeat number: 6 Trelegy Ellipta 200 mcg-62.5 mcg-25 mcg/inh inhalation powder 1 inhalation, Inhalation, Daily, at the same time every day, # 1 each, 5 Refills, Maintenance, 10/05/24 1:23:00 PM EST, Powder, [facility], Partial fill upon patient request if the prescription is for a schedule II opioid drug., 1 inhalation Inhalation Daily,x30 days,Instr:at the same time e , 166, cm, 09/06/24 13:27:00 EST, Height, 111.3, kg, 09/06/24 11:46:00 EST, Dry Weight Start Date: 10/05/24 Stop Date: 04/03/25 Status: Ordered Quantity: 1.0 Unit: each Repeat number: 6 Tylenol 325 mg oral [...] lumbar surgeries between 1980 and 1988 5Left 2016 6Right 63382; repeat 2025 1. Left shoulder arthroscopic rotator cuff repair 2. Left shoulder arthroscopic subacromial decompression 3. Left shoulder arthroscopic distal clavicle excision for 1. Left shoulder rotatorcuff tear 2. Left shoulder subacromial impingement syndrome 3. Left shoulder acromioclavicular joint arthropathy by Byron Corrales M.D. at [facility]. 9colo 2015 10Fatty Liver 111. Anterior cervical discectomy/arthrodesis C5-C6; 2. Anterior cervical discectomy/arthrodesis C6-C7; 3. Intervertebral fixative C5-C6, C6-C7; 4. Harvesting of bone graft for arthrodesis, same incision for Cervical stenosis C5-C6, C6-C7 by Mansoor Ratliff M.D. at [facility] 06/30/2012. 12Initial [place] Back Pain Disability Scale: 79 on 08/07/2009 Social History Social History Type Response Smoking Status Never (less than 100 in lifetime); Other: PATIENT NEVER SMOKED; entered on: 06/10/24 Sex Sex Representation Female (finding) Goals Complications of Cancer or Associated Treatment Avoided Start Date:04/20/24 End Date: Status:Met Progression:Not Met Follows Diabetes Self-Management Plan Start Date :07/25/23 End Date:10/24/23 Status:Met Progression:Not Met [facility] vs keeping it Start Date:04/29/23 End Date:07/29/23 Status:Met Progression:Met Patient Care team information Care Team Personnel Name: Violet Logan Position: [facility] Onco RN Member Role: Primary Care Nurse Name: Alma Delia Alonzo MD Position: [facility] Physician - Oncology Member Role: Lifetime Consulting Physician Name: Sharon Lawson Position: [facility] Outreach Member Role: Lifetime Consulting Physician Name: Aaliyah Lawson RN Position: [facility] RN Member Role: Primary Care Nurse Name: Catherine Ingram RN Position: [facility] Hospital [employer] Work Supervisor Member Role: Primary Care Nurse Name: Angelo Finley RN Position: [facility] RN Member Role: Primary Care Nurse Name: Ayleen Del Real RN Position: [facility] RN Member Role: Primary Care Nurse Name: Jose Mahmood MD Position: [facility] Physician - Primary Care Member Role: PCP Address: [address] [place] [address] Telecom: Name: Clem Ortega Position: [facility] Office Staff Member Role: Primary Care Nurse Name: Loreta ([employer]) Sulma Position: [facility] restaurant district manager Member Role: Vp Analytics Name: Flora Balderas RN Position: [facility] RN Member Role: Primary Care Nurse Name: Kirti Aguilera RN Position: [facility] Onco RN Member Role: Primary Care Nurse Name: Jose Fuentes RN Position: [facility] ED RN W/OE and Tasks Member Role: Primary Care Nurse Name: Shelby Romero RN Position: [facility] Onco RN Member Role: Primary Care Nurse Name: Doretha Astudillo RN Position: [facility] Onco RN Member Role: Primary Care Nurse Name: Cecille Parra RN Position: [facility] RN Member Role: Primary Care Nurse Name: Jayce Rodney RN Position: [facility] Onco RN Member Role: Primary Care Nurse Name: Magalys Spain RN Position: [facility] RN Member Role: Primary Care Nurse Name: Marianna Alaniz RN Position: [facility] RN Member Role: Primary Care Nurse Name: Ramiro De La Torre RN Position: [facility] RN Member Role: Primary Care Nurse Name: Eduardo Monae NP Position: [facility] Associate Professional Member Role: Primary Care Nurse Address: [address] [place] [address] Telecom: Name: Ade Penn RN Position: [facility] ED RN W/OE and Tasks Member Role: Primary Care Nurse Name: Guerda Leung RN Position: [facility] AMB Nurse Member Role: Primary Care Nurse Name: Karime Singer RN Position: [facility] Onco RN Member Role: Primary Care Nurse Name: Cheryl Latif RN Position: [facility] Hospital [employer] Work Supervisor Member Role: Primary Care Nurse Name: Kristi Browning RN, I Position: [facility] RN Member Role: Primary Care Nurse Care Team Related Persons Name: MADHU JAFFE Name: SHOBHA MORRISON Name: LETTY JIMENEZ Insurance Providers Guarantor name: FLORENCECher VALDERRAMA Health Plan Information #: 1 Payer: MEDICARE PART B OUTPT Member Number: NA Policy Number: NA Group Number: NA Health Plan Information #: 2 Payer: [employer] Member Number: NA Policy Number: NA Group Number: NA Health Plan Information #: 3 Payer: [place] Member Number: NA Policy Number: NA Group Number: NA
--- OUTSIDE RECORDS SUMMARY | 2024-11-05 15:14 | XMS_ITS | Continuity of Care Document ---
Author Organization [facility] [place] [address] [place] [address]- Care Team Providers Care Laborer [place] Name Role Phone Jose Mahmood MD Primary Care Physician [phone] Encounter 09/29/24 - 10/06/24 [facility] [address], [facility] [address] [place] [address]- Attending Physician: Jose Mahmood MD Admitting Physician: Jose Mahmood MD Referring Physician: Jose Mahmood MD Encounter Type: OutPatient One Time Allergies, Adverse Reactions, Alerts Substance Criticality Severity Reaction Reaction Severity Status erythromycin vomit Active Soma hives Active Pollen sneezing, post nasal drip, phlegm Active isopropyl alcohol topical blisters skin reaction Active Lovenox 1 unknown Active Animal Dander Active Oyster throat closes up A ctive Rubbing Alcohol Wipes Hives Active metFORMIN diarrhea Active 1localized skin reaction, large hives Immunizations Given and Recorded Vaccine Date Status Refusal Reason Influenza Virus Vaccine (oldterm) 1 06/04/24 Recor ded SARS-CoV-2 mRNA (ceolhcf-ynia-blrci) vax 2 06/04/24 Recorded SARS-CoV-2 mRNA (gefrbhj-admg-gwgzb) vax 12/07/21 Recorded SARS-CoV-2(COVID-19)mRNA-LNP vac(poq081) 3 08/15/23 Given influenza virus vaccine, inactivated [...] Recorded zoster vaccine, inactivated 6 09/22/22 Recorded WXSX-QfB-3cVCR 12y+ bivalent booster vax 05/30/22 Recorded SARS-CoV-2 (COVID-19) mRNA BNT-162b2 vac 06/16/21 Recorded SARS-CoV-2 (COVID-19) mRNA BNT-162b2 vac 12/13/20 Recorded SARS-CoV-2 (COVID-19) mRNA BNT-162b2 vac 11/21/20 Recorded pneumococcal 23-valent vaccine 03/17/18 Given pneumococcal 13-valent vaccine 05/24/16 Given tetanus/diphtheria/pertussis, acel(Tdap) 12/06/15 Given 1Result Comment: [facility] 2Result Comment: [facility] 3Result Comment: [facility] [id number] 4Result Comment: [facility]: [id number] Screening checklist was completed. 5Location History: [facility] 6Result Comment: [facility] [...] Maintenance, 06/24/24 1:40:00 PM EDT, [facility], 25, 2 puffs [...] EDT, Route to Pharmacy Electronically, [facility] # [facility], 166, cm, 12/22/23 15:01:00 EDT, Height, 109.6, kg, 12/03/23 14:37:00 EDT, Dry Weight Start Date: 01/14/24 Status: Ordered Quantity: 30.0 Unit: tablet Repeat number: 1 barium sulfate 2% oral suspension See Instructions, 2 premix 450ml bottles, take as directed for CT scan., # 900 mL, 0 Refills, Maintenance, 09/10/24 3:20:00 PM EST, [facility] # [facility], Partial fill upon patient request if the prescription is for a schedule II opioid drug., 2 premix 450ml bottles, take as directed for CT scan., 166, cm, 09/06/24 13:27:00 EST, Height, 111.3, kg, 09/06/24 11:46:00 EST, Dry Weight Start Date: 09/10/24 Status: Ordered Quantity: 900.0 Unit: mL Repeat number: 1 Basaglanyi KwikPen 100 units/mL subcutaneous solution = 72 units, Subcutaneous Infusion, Daily, Increase 2 units every 3 days until FBS < 130 per PCP Max dose 100 units qday Replaces Tresiba, # 10 each, 5 Refills, Maintenance, 09/07/24 8:42:00 AM EST, [facility] # [facility], Partial fill upon patient request if the prescription is for a schedule II opioid drug., 166, cm, 09/06/24 13:27:00 EST, Height, 111.3, kg, 09/06/24 11:46:00 EST, Dry Weight Start Date: 09/07/24 Status: Ordered Quantity: 10.0 Unit: each Repeat number: 6 Breztri Aerosphere inhalation aerosol 2 inhalation, Inhalation, 2 times a day, bid per fire extinguisher tester, 0 Refills, Maintenance, 08/10/24 11:00:00 AM EST, [...] EST, Route to Pharmacy Electronically, [facility] # [facility], 166, cm, 09/06/24 [...] Maintenance, 09/06/24 1:53:00 PM EST, [facility] # 50, 166, cm, 09/06/24 13:27:00 EST, Height, 111.3, kg, 09/06/24 11:46:00 EST, Dry Weight Start Date: 09/06/24 Status: Ordered Quantity: 180.0 Unit: tablet Repeat number: 2 losartan 100 mg oral tablet 1 tablet, By Mouth, Daily, # 30 tablet, 5 Refills, Maintenance, 07/13/24 2:49:00 PM EST, [facility] # 50, 166, cm, 07/12/24 13:45:00 EST, Height, 114.7, kg, 07/12/24 13:45:00 EST, Dry Weight Start Date: 07/13/24 Status: Ordered Quantity: 30.0 Unit: tablet Repeat number: 1 Metoprolol Succinate ER 25 mg oral tablet, extended release 1, tablet, By Mouth, Daily, # 90 tablet, Refills 1, Tot. Refills 1, Maintenance, 09/06/24 1:53:00 PMEST, Route to Pharmacy Electronically, [facility] # [facility], 166, cm, 09/06/24 [...] Details, Route to Pharmacy Electronically, [facility] # 50, 166, cm, 05/03/24 13:27:00 EDT, Height, 111.6, kg, 05/03/24 13:27:00 EDT, Dry Weight Start Date: 05/19/24 Status: Ordered Quantity: 28.0 Unit: tablet Repeat number: 1 Pen [place], 31 G x 5 mm BD Ultra [...] 5 Refills, Maintenance, 09/29/24 10:46:00 AM EST, [facility], 166, cm, 09/06/24 13:27:00 EST, Height, 111.3, kg, 09/06/24 11:46:00 EST, Dry Weight Start Date: 09/29/24 Status: Ordered Quantity: 28.0 Unit: tablet Repeat number: 6 Trelegy Ellipta 200 mcg-62.5 mcg-25 mcg/inh inhalation powder 1 inhalation, Inhalation, Daily, at the same time every day, # 1 each, 5 Refills, Maintenance, 10/05/24 1:23:00 PM EST, Powder, [facility] # [facility], Partial fill upon patient request if the prescription is for a schedule II opioid drug., 1 inhalation Inhalation Daily,x30 days,Instr:at the same time e very , 166, cm, 09/06/24 13:27:00 EST, Height, [...] between 1980 and 1988 5Left 2015 6Right 12019; repeat 2025 1. Left shoulder arthroscopic rotator cuff repair 2. Left shoulder arthroscopic subacromial decompression 3. Left shoulder arthroscopic distal clavicle excision for 1. Left shoulder rotatorcuff tear 2. Left shoulder subacromial impingement syndrome 3. Left shoulder acromioclavicular joint arthropathy by Byron Corrales M.D. at [facility]. 9colo 2016 10Fatty Liver 111. Anterior cervical discectomy/arthrodesis C5-C6; 2. Anterior cervical discectomy/arthrodesis C6-C7; 3. Intervertebral fixative C5-C6, C6-C7; 4. Harvesting of bone graft for arthrodesis, same incision for Cervical stenosis C5-C6, C6-C7 by Mansoor Ratliff M.D. at [facility] 06/30/2012. 12Initial [place] Back Pain Disability Scale: 79 on 08/07/2009 Results Radiology Reports * Exam Date Time Procedure Performing Provider Status 09/29/24 11:19 AM MM Digital Mammo Screening Sudeepdenise Fatemeh; Auth (Verified) Notes: (MM Digital Mammo Screening) Reason For Exam: Z12.31 SCREEN RESULT: MM Digital Mammo Screening PROCEDURE: MM Digital Mammo Screening INDICATION: Screening for breast cancer. No known palpable abnormalities. 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 COMPARISON: 09/23/2023 and multiple earlier studies. TECHNIQUE: Full-field digital CC and MLO 3D tomosynthesis images of both breasts were acquired. Computer-aided detection (CAD) was utilized in the interpretation of this study. DENSITY: There are scattered areas of fibroglandular density. FINDINGS: No suspicious masses, suspicious microcalcifications, or areas of architectural distortion are seen in either breast to suggest malignancy. Scattered and loosely grouped microcalcificationsbilaterally without suspicious features appear stable. Previously seen left-sided infusion port notevident on this exam. IMPRESSION: No mammographic evidence of malignancy. RECOMMENDATION: Annual mammographic screening BI-RADS: 2 (Benign) Lay letter mailed to patient WSN: [id number] Ordering Physician: Jose Mahmood Dictated By: Chriss Asher MD Dictated Date/Time: 09/30/24 8:18 am Reviewed By: Chriss Asher MD Signed By: Chriss Asher MD Signed Date/Time: 09/30/24 8:18 am Transcribed By: ABIEL Threader Operator Date/Time: 09/30/24 8:07 am Birads: Social History Social History Type Response Smoking Status Never (less than 100 in lifetime); Other: PATIENT NEVER SMOKED; entered on: 06/10/24 Sex Sex Representation Female (finding) Goals Complications of Cancer or Associated Treatment Avoided Start Date:04/20/24 End Date: Status:Met Progression:Not Met Follows Diabetes Self-Management Plan Start Date :07/25/23 End Date:10/24/23 Status:Met Progression:Not Met Pt needs to meet with approp henryte team to discuss having spinal stimulator removed vs keeping it Start Date:04/29/23 End Date:07/29/23 Status:Met Progression:Met Patient Care team information Care Team Personnel Name: Violet Logan: [facility] Onco RN Member Role: Primary Care Nurse Name: Alma Delia Alonzo MD Position: [facility] Physician - Oncology Member Role: Lifetime Consulting Physician Name: Sharon Lawson Position: [facility] Outreach Member Role: Lifetime Consulting Physician Name: Aaliyah Lawson RN Position: [facility] RN Member Role: Primary Care Nurse Name: Catherine Ingram RN Position: [facility] Hospital Impress Associate Member Role: Primary Care Nurse Name: Angelo Finley RN Position: [facility] RN Member Role: Primary Care Nurse Name: Ayleen Del Real RN Position: [facility] RN Member Role: Primary Care Nurse Name: Jose Mahmood MD Position: [facility] Physician - Primary Care Member Role: PCP Address: [address] [place] [id number]- Telecom: Name: Clem Ortega Position: [facility] Office Staff Member Role: Primary Care Nurse Name: Loreta ([employer]) Sulma Position: [facility] community services manager Member Role: Slicing Machine Operator Name: Flora Balderas RN Position: [facility] RN Member Role: Primary Care Nurse Name: Kirti Aguilera RN Position: [facility] Onco RN Member Role: Primary Care Nurse Name: Jose Fuentes RN Position: [facility] ED RN W/OE and Tasks Member Role: Primary Care Nurse Name: Shelby Romero RN Position: [facility] Onco RN Member Role: Primary Care Nurse Name: Doretha Astudillo RN Position: [facility] Onco RN Member Role: Primary Care Nurse Name: Cecille Parra RN Position: [facility] RN Member Role: Primary Care Nurse Name: Jayce Rodney RN Position: [facility] Onco RN Member Role: Primary Care Nurse Name: Magalys Spain RN Position: [facility] RN Member Role: Primary Care Nurse Name: Marianna Alaniz RN Position: [facility] RN Member Role: Primary Care Nurse Name: Ramiro De La Torre RN Position: [facility] RN Member Role: Primary Care Nurse Name: Eduardo Monae NP Position: [facility] Associate Professional Member Role: Primary Care Nurse Address: [address] [place] [address] [place] Telecom: Name: Ade Penn RN Position: [facility] ED RN W/OE and Tasks Member Role: Primary Care Nurse Name: Guerda Leung RN Position: [facility] AMB Nurse Member Role: Primary Care Nurse Name: Karime Singer RN Position: [facility] Onco RN Member Role: Primary Care Nurse Name: Cheryl Latif RN Position: [facility] Hospital Impress Associate Member Role: Primary Care Nurse Name: Kristi Browning RN, I Position: [facility] RN Member Role: Primary Care Nurse Care Team Related Persons Name: MADHU JAFFE Name: SHOBHA MORRISON Name: LETTY JIMENEZ Insurance Providers Guarantor [facility] Plan Information #: 1 Payer: MEDICARE PART B OUTPT Member Number: [id number] Policy Number: NA Group Number: Health Plan Information #: 2 Payer: MEDEX Member Number: [id number] Policy Number: NA Group Number: TONY Health Plan Information #: 3 Payer: [facility] Member Number: [id number] Policy Number: NA Group Number: NA
--- OUTSIDE RECORDS SUMMARY | 2024-11-05 15:14 | XMS_ITS | Continuity of Care Document ---
Author Organization [facility] Address [address] [place] [address]- Care Team Providers Care Saddle Maker Name Role Phone Ela BENTLEY, Jose Springer Primary Care Physician Encounter [facility] Date(s): 09/10/24 - 10/10/24 [facility] [address] [place] [id number] Encounter Type: Triage Allergies, Adverse Reactions, Alerts [...] (oldterm) 1 06/04/24 Recor ded SARS-CoV-2 mRNA (ifbewzp-gmkv-lnzgp) vax 2 06/04/24 Recorded SARS-CoV-2 mRNA (rcndciw-rant-iguzu) vax 12/07/21 Recorded SARS-CoV-2(COVID-19)mRNA-LNP vac(flq909) 3 08/15/23 Given influenza virus vaccine, inactivated [...] Recorded zoster vaccine, inactivated 6 09/22/22 Recorded [id number]-GgW-2jACG 12y+ bivalent booster vax 05/30/22 Recorded SARS-CoV-2 (COVID-19) mRNA BNT-162b2 vac 06/16/21 Recorded SARS-CoV-2 (COVID-19) mRNA BNT-162b2 vac 12/13/20 Recorded SARS-CoV-2 (COVID-19) mRNA BNT-162b2 vac 11/21/20 Recorded pneumococcal 23-valent vaccine 03/17/18 Given pneumococcal 13-valent vaccine 05/24/16 Given tetanus/diphtheria/pertussis, acel(Tdap) 12/06/15 Given 1Result Comment: DALIA Lieberman 2Result Comment: DALIA Lieberman 3Result Comment: [facility] [id number] 4[facility] Comment[facility] [id number] Screening checklist was completed. 5Location History: [facility] 6Result Comment: [facility] Medications acetaminophen-oxyCODONE 325 [...] Refills, Maintenance, 06/24/24 1:40:00 PM EDT, [facility], 25, 2 puffs Inhalation Every 6 hours,PRN: NEEDED FOR WHEEZING, 166, cm, 06/18/24 6:52:00 EDT, Height, 117, kg, 06/18/24 6:52:00 EDT, Dry Weight Start Date: 06/24/24 Status: Ordered Quantity: 8.5 Unit: g Repeat number: 6 allopurinol 300 mg oral tablet 1, tablet, By Mouth, Daily, # 30 tablet, Refills 5, Maintenance, 01/14/24 1:50:00 PM EDT, Route to Pharmacy Electronically, [facility] # [facility], 166, cm, 12/22/23 15:01:00 EDT, Height, 109.6, kg, 12/03/23 14:37:00 EDT, Dry Weight Start Date: 01/14/24 Status: Ordered Quantity: 30.0 Unit: tablet Repeat number: 1 barium sulfate 2% oral suspension See Instructions, 2 premix 450ml bottles, take as directed for CT scan., # 900 mL, 0 Refills, Maintenance, 09/10/24 3:20:00 PM EST, [facility] # 50, Partial fill upon patient request if the prescription is for a schedule II opioid drug., 2 premix 450ml bottles, take as directed for CT scan., 166, cm, 09/06/24 13:27:00 EST, Height, 111.3, kg, 09/06/24 11:46:00 EST, Dry Weight Start Date: 09/10/24 Status: Ordered Quantity: 900.0 Unit: mL Repeat number: 1 Alyssa Corrales 100 units/mL subcutaneous solution = 76 units, Subcutaneous Infusion, Daily, Increase 2 units every 3 days until FBS < 130 per PCP Max dose 100 units qday Replaces Tresiba, # 10 each, 5 Refills, Maintenance, 09/07/24 8:42:00 AM EST, [facility] # 50, Partial fill upon patient request if the prescription is for a schedule II opioid drug., 166, cm, 09/06/24 13:27:00 EST, Height, 111.3, kg, 09/06/24 11:46:00 EST, Dry Weight Start Date: 09/07/24 Status: Ordered Quantity: 10.0 Unit: each Repeat number: 6 Breztri Aerosphere inhalation aerosol 2 inhalation, Inhalation, 2 times a day, bid per strap stitcher, 0 Refills, Maintenance, 08/10/24 11:00:00 AM EST, [...] 1:52:00 PM EST, Route to Pharmacy Electronically, [facility] # [facility], 166, cm, 09/06/24 [...] 1 Refills, Maintenance, 09/06/24 1:53:00 PM EST, [facility] # 50, 166, cm, 09/06/24 13:27:00 EST, Height, 111.3, kg, 09/06/24 11:46:00 EST, Dry Weight Start Date: 09/06/24 Status: Ordered Quantity: 180.0 Unit: tablet Repeat number: 2 losartan 100 mg oral tablet 1 tablet, By Mouth, Daily, # 30 tablet, 5 Refills, Maintenance, 07/13/24 2:49:00 PM EST, [facility] # [facility], 166, cm, 07/12/24 13:45:00 EST, Height, 114.7, kg, 07/12/24 13:45:00 EST, Dry Weight Start Date: 07/13/24 Status: Ordered Quantity: 30.0 Unit: tablet Repeat number: 1 Metoprolol Succinate ER 25 mg oral tablet, extended release 1, tablet, By Mouth, Daily, # 90 tablet, Refills 1, Tot. Refills 1, Maintenance, 09/06/24 1:53:00 PMEST, Route to Pharmacy Electronically, [facility] # [facility], 166, cm, 09/06/24 [...] Replace Required Details, Route to Pharmacy Electronically, [facility], 166, cm, 05/03/24 13:27:00 EDT, Height, 111.6, kg, 05/03/24 13:27:00 EDT, Dry Weight Start Date: 05/19/24 Status: Ordered Quantity: 28.0 Unit: tablet Repeat number: 1 Pen [place], 31 G x 5 mm BD Ultra [...] 5 Refills, Maintenance, 09/29/24 10:46:00 AM EST, [facility], 166, cm, 09/06/24 13:27:00 EST, Height, 111.3, kg, 09/06/24 11:46:00 EST, Dry Weight Start Date: 09/29/24 Status: Ordered Quantity: 28.0 Unit: tablet Repeat number: 6 Trelegy Ellipta 200 mcg-62.5 mcg-25 mcg/inh inhalation powder 1 inhalation, Inhalation, Daily, at the same time every day, # 1 each, 5 Refills, Maintenance, 10/05/24 1:23:00 PM EST, Powder, [facility], Partial fill upon [...] between 1980 and 1988 5Left 2016 6Right 34777; repeat 2025 1. Left shoulder arthroscopic rotator cuff repair 2. Left shoulder arthroscopic subacromial decompression 3. Left shoulder arthroscopic distal clavicle excision for 1. Left shoulder rotatorcuff tear 2. Left shoulder subacromial impingement syndrome 3. Left shoulder acromioclavicular joint arthropathy by Byron Corrales M.D. at [facility]. 9colo 2015 10Fatty Liver 111. Anterior cervical discectomy/arthrodesis C5-C6; 2. Anterior cervical discectomy/arthrodesis C6-C7; 3. Intervertebral fixative C5-C6, C6-C7; 4. Harvesting of bone graft for arthrodesis, same incision for Cervical stenosis C5-C6, C6-C7 by Mansoor Ratliff M.D. at [facility] 06/30/2012. 12Initial [place] Back Pain Disability Scale: 79 on 08/07/2009 [...] Met [facility] vs keeping it Start Date:04/29/23 End Date:07/29/23 Status:Met Progression:Met Patient Care team information Care Team Personnel Name: Violet Logan Position: [facility] Onco RN Member Role: Primary Care Nurse Name: Alma Delia Alonzo MD Position: [facility] Physician - Oncology Member Role: Lifetime Consulting Physician Name: Sharon Lawson Position: [facility] Outreach Member Role: Lifetime Consulting Physician Name: Aaliyah Lawson RN Position: [facility] RN Member Role: Primary Care Nurse Name: Catherine Ingram RN Position: [facility] Hospital Marker Maker Member Role: Primary Care Nurse Name: Angelo Finley RN Position: [facility] RN Member Role: Primary Care Nurse Name: Ayleen Del Real RN Position: [facility] RN Member Role: Primary Care Nurse Name: Jose Mahmood MD Position: [facility] Physician - Primary Care Member Role: PCP Address: [address] [place] [id number] Telecom: Name: Clem Ortega Position: [facility] Office Staff Member Role: Primary Care Nurse Name: Loreta (Baycare) Sulma Position: [facility] doffer Member Role: Asset Protection Detective Name: Flora Balderas RN Position: [facility] RN Member Role: Primary Care Nurse Name: Kirti Aguilera RN Position: [facility] Onco RN Member Role: Primary Care Nurse Name: Jose Fuentes RN Position: [facility] ED RN W/OE and Tasks Member Role: Primary Care Nurse Name: Shelby Romero RN Position: [facility] Onco RN Member Role: Primary Care Nurse Name: Doretha Astudillo RN Position: [facility] Onco RN Member Role: Primary Care Nurse Name: Cecille Parra RN Position: [facility] RN Member Role: Primary Care Nurse Name: Jayce Rodney RN Position: [facility] Onco RN Member Role: Primary Care Nurse Name: Magalys Spain RN Position: [facility] RN Member Role: Primary Care Nurse Name: Marianna Alaniz RN Position: [facility] RN Member Role: Primary Care Nurse Name: Ramiro De La Torre RN Position: [facility] RN Member Role: Primary Care Nurse Name: Eduardo Monae NP Position: [facility] Associate Professional Member Role: Primary Care Nurse Address: [address] [place] [address] Telecom: Name: Ade Penn RN Position: [facility] ED RN W/OE and Tasks Member Role: Primary Care Nurse Name: Guerda Leung RN Position: [facility] AMB Nurse Member Role: Primary Care Nurse Name: Karime Singer RN Position: [facility] Onco RN Member Role: Primary Care Nurse Name: Cheryl Latif RN Position: [facility] Hospital Marker Maker Member Role: Primary Care Nurse Name: Kristi Browning RN, I Position: [facility] RN Member Role: Primary Care Nurse Care Team Related Persons Name: MADHU JAFFE Name: SHOBHA MORRISON Name: LETTY JIMENEZ Insurance Providers Guarantor name: FLORENCE VALDERRAMA Health Plan Information #: 1 Payer: MEDICARE PART B OUTPT Member Number: NA Policy Number: NA Group Number: NA Health Plan Information #: 2 Payer: MEDEX Member Number: NA Policy Number: NA Group Number: NA Health Plan Information #: 3 Payer: [place] Member Number: NA Policy Number: NA Group Number: NA
--- OUTSIDE RECORDS SUMMARY | 2024-11-05 15:15 | XMS_ITS ---
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 Vital Signs Height 5ft 5in in 08/05/2024 Weight 245 lbs 08/05/2024 BMI 40.77 kg/m2 08/05/2024 Procedures Procedure Date Ordered Date Performed Result Body Sit e 57959-ZCQWTPL NAIL, 6 OR MORE 08/05/2024 N/A 08633-SEMB SKIN LESIONS, OVER 4 08/05/2024 N/A Encounters Encounter Location Date Provider Diagnosis [facility] [place] [address] [place] [address] 08/05/2024 Nelda Dumont Type 2 diabetes mellitus with diabetic polyneuropathy E11.42 and Tinea unguium B35.1 Assessments Encounter Date Diagnosis (ICD Code) Assessment Notes Treatment Notes Treatment Clinical Notes Section Notes 08/05/2024 Type 2 diabetes mellitus with diabetic polyneuropathy (ICD-10 - E11.42) 08/05/2024 Tinea unguium (ICD-10 - B35.1) Plan Of Treatment Pending Test Test Name Order Date 81010-VHHTPON NAIL, 6 OR MORE 08/05/2024 68177-HZYB SKIN LESIONS, OVER 4 08/05/20 24 Next Appt Details Follow Up: prn, Reason: Provider Name:Mackenzie Banrard Vaibhav barnard, 2025 03:15:00 PM, [address] [place] [address], [phone], Procedure Notes * Category Sub-Category Detail Notes [...] use of a nail nipper and/or dremel-type almond grinder, to a more viable healthy nail [...] to maintain effectiveness in symptomatic relief - 67056 Keratoma Treatment Parring or Cutting o f [...] instrumentation by the physician of record - 16009 Progress Notes * Alysha DAVIS LDOB:1949 (74 yo F)Acc No.[id number]:08/05/2024 Progress Note Patient:Alysha SANTANA Provider:?Nelda Dumont DPM :1950???Age:74 Y???Sex:Female D ate:08/05/2024 Address:[address] [place], [place] [id number] Pcp:Jose Mahmood MD Subjective: * Chief Complaints: [...] cuff 2013kidney procedure 2016xecptic 2016left kidney removed 36187 back surgeries 2017right upper lung removed 2017bone growth removed upper and lower jaw 2019biopsy of chest 2019right hand carpal tunnel 2019porta cath 2019chemo radiation 2019Severs antibiotic therapy 2019tens untit placement spinal stem shoulder replacement Carple tunnel 06/25/2022 * Hospitalization/Major Diagno stic Procedure:?[facility]-Fall i night stay 10/13/2020 * Family History:?Mother: [...] use of a nail nipper and/or dremel-type almond grinder, to a more viable healthy nail [...] to maintain effectiveness in symptomatic relief - 23402.?Keratoma Treatment:?Parring or Cutting of Benign Hyperkeratotic Lesion(s)?(-57) [...] instrumentation by the physician of record - 33436.? * Procedure Codes:?77934 DEBRI DE NAIL, 6 OR MORE, Modifiers: XS 86778 TRIM SKIN LESIONS, OVER 4, Modifiers: XS * Follow Up:?prn * Images: * Sign off status: Completed true * Provider:?Nelda Dumont DPM Date:?1 10/06/2023 Generated for Mulugeta gudino/Josi/Bharat on:?11/05/2024 03:14 PM EDT History and Physical Notes * HPI (History [...]
--- OUTSIDE RECORDS SUMMARY | 2024-11-05 15:15 | XMS_ITS ---
Author Organization [facility] Address [address] [place] [address] Care Team Providers Care Corrections Caseworker Name Role Phone Jose Mahmood MD Primary Care Provider UnavailNelda De Jesus Unavailable [phone] Mackenzie Cyr Unavailable [phone] Allergies Allergen (clinical drug ingredient) Drug/Non Drug [...] Duration) Notes Start Date End Date Status Night Splint AFO - L1930 as directed Not-Taking Rosuvastatin Calcium 5 MG 1 tablet Orall y Once a day for 30 day(s) Active Metoprolol Succinate ER 25 MG 1 tablet Orally Once a day for 30 day(s) Active Losartan Potassium 100 MG 1 tablet Orall y Once a day for 30 day(s) Active Gabapentin 100 MG 4 capsules Orally three times a day Active albuterol Not-Taking Allopurinol 300 MG 1 tablet Orally Once a day for 30 day(s) Active Montelukast Sodium 10 MG 1 tablet Orally Once a day for 30 day(s) Active glipiZIDE ER 10 MG Orally Once a day Active Furosemide Active oxyCODONE-Acetaminophen 5-325 MG 1 tablet as needed Orally every 6 hrs Active Tresiba 100 UNIT/ML as directed Active Breztri Aerosphere N ot-Taking Extra Depth Diabetic Shoes with 3 Pair Custom heat-molded multi-density innersoles for 1 year Dx: Active Doxycycline Monohydrate 100 MG 1 capsule Orally Once a day for 10 days Not-Taking HYDROcodone-Acetaminophen 5-325 MG 1 tablet as needed Orally every 6 hrs Not-Taking Doxycycline Hyclate 100 MG 1 capsule Ora lly Once a day for 10 day(s) Not-Taking Prochlorperazine Maleate 10 MG 1 tablet Orally Three times a day for 30 day(s) Not-Taking Pantoprazole Sodium 40 MG 1 tablet Orall y Once a day for 30 day(s) Not-Taking LORazepam 0.5 MG 1 tablet as needed Orally every 6 hrs Not-Taking NovoLIN N 100 UNIT/ML as directed Subcutaneous Not-Taking Brexanolone Not-Taki ng Social History Tobacco Use: Social History Observation Description Date Details (start date - stop date) Never Smoker NA - NA Tobacco Use/Smoking Question Answer Notes Are you a: nonsmoker Additional Findings: Tobacco Non-User Current no n-smoker Tobacco use other than smoking: Question Answer Notes Are you an other tobacco user? No Vital Signs Height 5FT5IN in 10/22/2024 Weight 244 lbs 10/22/2024 BMI 40.6 kg/m2 10/22/2024 Blood pressure systolic 120 mm Hg 10/22/19 25 Blood pressure diastolic 70 mm Hg 025 Encounters Encounter Location Date Provider Diagnosis [facility] [address] [address] 10/22/2024 Mackenzie Cyr Type 2 diabetes mellitus with diabetic polyneuropathy E11.42 and Tinea unguium B35.1 Assessments Encounter Date Diagnosis (ICD Code) Assessment Notes Treatment Notes Treatment Clinical Notes Section Notes 10/22/2024 Type 2 diabetes mellitus with diabetic polyneuropathy (ICD-10 - E11.42) 10/22/2024 Tinea unguium (ICD-10 - B35.1) Plan Of Treatment Next Appt Details Follow Up: 2 Months, Reason: Provider Name:Mackenzie barnard, 2025 03:15:00 PM, [address] [place] [address], [phone], Procedure Notes * Category Sub-Category Detail Notes Debride Nail 6-10 Nail debridement Due to the cl inical pathology outlined in the exam findings, performance of this nail treatment is medically necessary as its management by an unskilled/untrained nonprofessional would put this patients foot and overall health at risk. Therefore, debridement to affected nail(s), as described in exam ( T2, T3, T4, T5, T6, T7, T8, T9), was performed exclusively by the physician of record to reduce/remove overall nail length, girth, thickness, subungual debris, and necrotic tissue, by manual and/or electrical means through the use of a nail nipper and/or dremel-type liquor grinder mill operator, to a more viable healthy nail [...] to maintain effectiveness in symptomatic relief - 65050 Keratoma Treatment Parring or Cutting o f Benign Hyperkeratotic Lesion(s) (-56) 2-4 Lesions - Due to the at risk nature of the patients medical condition as documented in the exam findings, performance of this keratoderma treatment is medically necessary as its management by an unskilled/untrained nonprofessional would put this patients foot and overall health at risk. Therefore, the benign hyperkeratotic lesions, ( 2 ) in total, locations as stated and described in the exam ( TA, T5), were pared, and/or cut utilizing a sterile 15 blade, tissue nippers, and/or power dremel instrumentation by the physician of record - 22308 Progress Notes * Alysha DAVIS LDOB:1949 (74 yo F)Acc No.[id number]:10/22/2024 Progress Note Patient:?Alysha DAVIS Provider:?Mackenzie Cyr DPM :1950???Age:74 Y???Sex:Female D ate:10/22/2024 Address:[address] [place], [place] [id number] Pcp:Jose Mahmood MD Subjective: * Chief Complaints: * ???At Risk Footcare * HPI: ???At Risk footcare:?Pt States Last PCP Visit:?Date?08/05/2024 * ROS:?General/Constitutional:?Nausea?denies.?Vomiting?denies.?Hunger Thirst?denies.?Loss appetite?denies.?Chills?denies.?Fatigue?denies.?Fever?denies.?Night Sweats?denies.?Unexplained weight loss?denies.?Unexplained weight gain?denies.?HEENTM:?Dentures?denies.?Dizziness?denies.?Glasses/contacts?denies.?Retinopathy?den ies.?Blurred/double vision?denies.?TMJ?denies.?Discharge/drainage?denies.?Implants?denies.?Sore throat?denies.?Dental implants?denies.?Hard of hearing ?denies.?Difficulty chewing/swallowing/speaking?denies.?Nose bleeds?denies.?Sore mouth?denies.?Respiratory:?On O xygen?denies.?Pneumonia/pleurisy?denies.?Bronchitis?denies.?Emphysema?denies.?Co ughing?denies.?Cough blood?denies.?Shortness of breath?denies.?Wheezing?denies.?Cardiovascular:?Pacemaker?denies.?MVP?denies.?WPW?denies.?CHF?denies.?Heart attack?denies.?Septal defect?denies.?Rapid beat?denies.?Chest pain ?denies.?Atrial Fib.?denies.?Murmur/Palpitations?denies.?Gastrointestinal:?Hemorrhoids?denies.?Stomach/Abdominal pain?denies.?Dark blood stool?denies.?Irritable bowel ?denies.?Constipation?denies.?Diarrhea?denies.?Hematology:?Swelling?denies.?Clots?denies.?Varicose Veins?denies.?Bruising?denies.?Bleeding problem?denies.?Genitourinary:?Blood urine?denies.?Frequent/Painfu/urination/bladder control?denies.?Kidney stones?denies.?Infection (UTI)?denies.?Nephropathy?denies.?sex trans dis (STD)?denies.?Prostate?denies.?Musculoskeletal:?Hammertoes?denies.?Bunions?denies.?Back Pain?denies.?Muscle Cramps/ Resting?denies.?Muscle cramps / walking?denies.?Generalized aches and pains?denies.?Weakness?denies.?Integ.:?Kay?denies.?Scars?denies.?Corns/calluses?denies.?Ingrown nails?admits.?Painful nails?denies.?Open Sores?denies.?Rashes?denies.?Neurologic:?Difficulty sleeping?denies.?Brain disorder?denies.?Numbness?denies.?Balance t rouble?denies.?Confusion?denies.?Fainting/blackouts?denies.?Tingling?denies.?Thomas mors?denies.? * Medical History:? * Surgical History:?back surge ry L4-5 1980shattered left ankle 1990pins removed 1990gall bladder 2003kidney procedure 2012neck plate and screws 2012right rotator cuff 2013kidney procedure 2016xecptic 2016left kidney removed back surgeries 2017right upper lung removed 2017bone growth removed upper and lower jaw 2019biopsy of chest 2019right hand carpal tunnel 2019porta cath 2019chemo radiation 2019Severs antibiotic therapy 2019tens untit placement spinal stem shoulder replacement Carple tunnel 06/25/2022 * Hospitalization/Major Diagno stic Procedure:?[facility] i night stay 10/13/2020 * Family History:?Mother: yola tello?Father: alive, diagnosed with Unspecified essential hypertension, Unspecified heart disease, Unspecified cerebral artery occlusion with cerebral infarction.? * Social History:?Tobacco Use:?Tobacco Use/Smoking?Are you a:?nonsmoker ?Additional Findings: Tobacco Non-User?Current non-smoker ?Tobacco use other than smoking?Are you an other tobacco user??No ???Miscellaneous:?Caffeine: yes, frequency:, 2-3 cups per day. ?Children: no. ?Exercise: no. ?Marital status: single. 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 * Medications:?TakingExtra Dep th Diabetic Shoes with 3 Pair Custom heat-molded multi-density innersoles for 1 year Dx: Tresiba 100 UNIT/ML Solution as directed oxyCODONE-Acetaminophen 5-325 MG Tablet 1 tablet as needed Orally every 6 hrs Montelukast Sodium 10 MG Tablet 1 tablet Orally Once a day Allopurinol 300 MG Tablet 1 tablet Orally Once a day Furosemide glipiZIDE ER 10 MG Tablet Extended [...] multi-density innersoles for 1 year Dx: Taking Tresiba 100 UNIT/ML Solution as directed Taking oxyCODONE-Acetaminophen 5-325 MG Tablet 1 tablet as needed Orally every 6 hrs Taking Montelukast Sodium 10 MG Tablet 1 tablet Orally Once a day Taking Allopurinol 300 MG Tablet 1 tablet Orally Once a day Taking Furosemide Taking glipiZIDE ER 10 MG [...] Tablet 1 tablet Orally Once a day Not-Taking/PRNBreztri Aerosphere albuterol Night Splint AFO - L1930 as directed Brexanolone [...] List reviewed and reconciled with the patientNot-Taking/PRN Breztri Aerosphere Not-Taking/PRN albuterol Not-Taking/PRN Night Splint AFO - L1930 as directed [...] hivesMetformin HClanimalsSeasonaleAlcohol: hivesyes[Allergies Verified] Objective: * Vitals:?Ht: 5FT5IN, Wt:244, BMI:40.6, Shoe size: 10-11, BP:120/70mm Hg, BS: 142, Ht-cm: 165.1 cm, Wt-k.68 kg. * ???Past Orders: ???Lab:HEMOGLOBIN A1C (GLYCO HEMOGLOBIN) (Order Date - 07/25/2024) (Collection Date & Time - 07/25/2024 12:20 PM) ? Value Reference Range ?HEMOGLOBIN A1C % (HH) 7.3 * Examination: ???Ophthalmology Referral: ?DIABETES EYE EXAM?Procedure Performed:?Yes ?Date of Exam Performed?09/25/2024 ?Findings of Diabetic Eye Exam:?no retinopathy?Neurological: ?SENSORY:? Neurological exam demonstrates, reduced light touch sensation, reduced sharp/dull pin prick discrimination , B/L, 5.07 monofilament test performed at plantar aspects of 5 varied sites per foot shows sensation, reduced , B/L.?Nails: ?NAILS are:?Elongated, overgrown, dystrophic, lytic, greater than 3mm thick, discolored and friable with crumbly malodorous subungual debris, ?T2, T3, T4, T5, T6, T7, T8, T9.?Dermatologic: ?SKIN FINDINGS:?Skin exam reveals Keratotic lesion(s) located at medial IPJ TA, T5.?Vascular: ?DP PULSES (B):??2/4, B/L.?PT PULSES (B):? 1/4, B/L.?CAPILLARY FILL TIME:?3 secs. per digit, B/L.?TROPHIC CONDITION-TEXTURE/ELASTICITY/TURGOR/HAIR GROWTH (B):?normal, B/L.?TEMPERTURE GRADIENT (C):?warm to cool, proximal to distal, B/L.?PIGMENTATION:?normal, B/L.?EDEMA (C):? 2/4, Left, Ankle(s).?TELANGECTASIA:?absent.?VARICOSITIES:?absent.?Orthopedic: ?MUSCLE STRENGTH:?5/5 all groups [...] to affected nail(s), as described in exam (?T2, T3, T4, T5, T6, T7, T8, T9), was performed exclusively by the physician of record to reduce/remove overall nail length, girth, thickness, subungual debris, and necrotic tissue, by manual and/or electrical means through the use of a nail nipper and/or dremel-type liquor grinder mill operator, to a more viable healthy nail [...] to maintain effectiveness in symptomatic relief - 03269.?Keratoma Treatment:?Parring or Cutting of Benign Hyperkeratotic Lesion(s)?(-56) 2-4 Lesions - Due to the at risk nature of the patients medical condition as documented in the exam findings, performance of this keratoderma treatment is medically necessary as its management by an unskilled/untrained nonprofessional would put this patients foot and overall health at risk. Therefore, the benign hyperkeratotic lesions, ( 2 ) in total, locations as stated and described in the exam ( TA, T5), were pared, and/or cut utilizing a sterile 15 blade, tissue nippers, and/or power dremel instrumentation by the physician of record - 36562.? * Procedure Codes:?22277 DEBRI DE NAIL, 6 OR MORE, Modifiers: XS 23826 TRIM SKIN LESIONS, 2 TO 4, Modifiers: XS * Follow Up:?2 Months * Images: * Sign off status: Completed true * Provider:?Mackenzie Cyr DPM Date:? Generated for Mulugeta gudino/Josi/Bharat on:?11/05/2024 03:14 PM [...] Keratotic lesion(s) located at medial IPJ TA, T5 Orthopedic MUSCLE STRENGTH: 5/5 all groups in a symmetrical fashion, B/L General Examination GENERAL APPEARANCE: Reveals a pleasant, alert, well nourished, well-developed, well hydrated individual, who demonstrates proper attention to hygiene/body habitus, and is in no acute distress, Pt serves as own historian for office visit today ORIENTED: person, place, and t ranjeet Ophthalmology Referral DIABETES EYE EXAM Procedure Perform ed:: Yes ?Date of Exam Performed: 09/25/2024 Findings of Diabetic Eye Exam:: no retin [...] and friable with crumbly malodorous subungual debris, T2, T3, T4, T5, T6, T7, T8, T9
--- OUTSIDE RECORDS SUMMARY | 2024-11-05 15:15 | XMS_ITS | Continuity of Care Document ---
Author Organization [facility] Address [address] [place] [address]- Care Team Providers Care Salesperson Automobiles Name Role Phone Ela BENTLEY, Jose Springer Primary Care Physician [place] [facility] [place]): 09/29/24 - 10/29/24 [facility] [address] [place] [address] [place] [address] Encounter Type: Triage Allergies, Adverse Reactions, Alerts [...] (oldterm) 1 06/04/24 Recor ded SARS-CoV-2 mRNA (uwljele-swox-knkzf) vax 2 06/04/24 Recorded SARS-CoV-2 mRNA (evxwfnk-oike-ogozz) vax 12/07/21 Recorded SARS-CoV-2(COVID-19)mRNA-LNP vac(skr891) 3 08/15/23 Given influenza virus vaccine, inactivated [...] Recorded zoster vaccine, inactivated 6 09/22/22 Recorded [id number] 12y+ bivalent booster vax 05/30/22 Recorded SARS-CoV-2 (COVID-19) mRNA BNT-162b2 vac 06/16/21 Recorded SARS-CoV-2 (COVID-19) mRNA BNT-162b2 vac 12/13/20 Recorded SARS-CoV-2 (COVID-19) mRNA BNT-162b2 vac 11/21/20 Recorded pneumococcal 23-valent vaccine 03/17/18 Given pneumococcal 13-valent vaccine 05/24/16 Given tetanus/diphtheria/pertussis, acel(Tdap) 12/06/15 Given 1Result Comment: DALIA Lieberman 2Result Comment: [facility] 3Result Comment: [facility] [id number] 4Result Comment: [facility]: [id number] Screening checklist was completed. 5Location History: [facility] 6Result Comment: [facility] Medications acetaminophen-oxyCODONE 325 [...] EDT, Route to Pharmacy Electronically, [facility] # [facility], 166, cm, 12/22/23 15:01:00 EDT, Height, 109.6, kg, 12/03/23 14:37:00 EDT, Dry Weight Start Date: 01/14/24 Status: Ordered Quantity: 30.0 Unit: tablet Repeat number: 1 barium sulfate 2% oral suspension See Instructions, 2 premix 450ml bottles, take as directed for CT scan., # 900 mL, 0 Refills, Maintenance, 09/10/24 3:20:00 PM EST, [facility] # 50, Partial fill upon patient request if the prescription is for a schedule II opioid drug., 2 premix 450ml bottles, take as directed for CT scan., 166, cm, 09/06/24 13:27:00 EST, Height, 111.3, kg, 09/06/24 11:46:00 EST, Dry Weight Start Date: 09/10/24 Status: Ordered Quantity: 900.0 Unit: mL Repeat number: 1 Basarnol Corrales 100 units/mL subcutaneous solution = 80 units, Subcutaneous Infusion, Daily, Increase 2 units every 3 days until FBS < 130 per PCP Max dose 100 units qday Replaces Tresiba, # 10 each, 5 Refills, Maintenance, 09/07/24 8:42:00 AM EST, [facility] # 50, Partial fill upon patient request if the prescription is for a schedule II opioid drug., 166, cm, 09/06/24 13:27:00 EST, Height, 111.3, kg, 09/06/24 11:46:00 EST, Dry Weight Start Date: 09/07/24 Status: Ordered Quantity: 10.0 Unit: each Repeat number: 6 Breztri Aerosphere inhalation aerosol 2 inhalation, Inhalation, 2 times a day, bid per valuation consultant, 0 Refills, Maintenance, 08/10/24 11:00:00 AM EST, [...] EST, Route to Pharmacy Electronically, [facility] # 50, 166, cm, 09/06/24 [...] Maintenance, 09/06/24 1:53:00 PM EST, [facility] # 50, 166, cm, 09/06/24 13:27:00 EST, Height, 111.3, kg, 09/06/24 11:46:00 EST, Dry Weight Start Date: 09/06/24 Status: Ordered Quantity: 180.0 Unit: tablet Repeat number: 2 losartan 100 mg oral tablet 1 tablet, By Mouth, Daily, # 30 tablet, 5 Refills, Maintenance, 07/13/24 2:49:00 PM EST, [facility] # 50, 166, cm, 07/12/24 13:45:00 EST, Height, 114.7, kg, 07/12/24 13:45:00 EST, Dry Weight Start Date: 07/13/24 Status: Ordered Quantity: 30.0 Unit: tablet Repeat number: 1 Metoprolol Succinate ER 25 mg oral tablet, extended release 1, tablet, By Mouth, Daily, # 90 tablet, Refills 1, Tot. Refills 1, Maintenance, 09/06/24 1:53:00 PMEST, Route to Pharmacy Electronically, [facility] # 50, 166, cm, 09/06/24 [...] Details, Route to Pharmacy Electronically, [facility] # 50, 166, cm, 05/03/24 13:27:00 EDT, Height, 111.6, kg, 05/03/24 13:27:00 EDT, Dry Weight Start Date: 05/19/24 Status: Ordered Quantity: 28.0 Unit: tablet Repeat number: 1 Pen [place], 31 G x 5 mm BD Ultra [...] 5 Refills, Maintenance, 09/29/24 10:46:00 AM EST, [facility] # 50, 166, cm, 09/06/24 13:27:00 EST, Height, 111.3, kg, 09/06/24 11:46:00 EST, Dry Weight Start Date: 09/29/24 Status: Ordered Quantity: 28.0 Unit: tablet Repeat number: 6 Trelegy Ellipta 200 mcg-62.5 mcg-25 mcg/inh inhalation powder 1 inhalation, Inhalation, Daily, at the same time every day, # 1 each, 5 Refills, Maintenance, 10/05/24 1:23:00 PM EST, Powder, [facility] # 50, Partial fill upon patient request if the prescription is for a schedule II opioid drug., 1 inhalation Inhalation Daily,x30 days,Instr:at the same time e very day, 166, cm, 09/06/24 13:27:00 EST, Height, 111.3, [...] between 1980 and 1988 5Left 2016 6Right 98644; repeat 2025 1. Left shoulder arthroscopic rotator cuff repair 2. Left shoulder arthroscopic subacromial decompression 3. Left shoulder arthroscopic distal clavicle excision for 1. Left shoulder rotatorcuff tear 2. Left shoulder subacromial impingement syndrome 3. Left shoulder acromioclavicular joint arthropathy by Byron Corrales M.D. at [facility]. 9colo 2015 10Fatty Liver 111. Anterior cervical discectomy/arthrodesis C5-C6; 2. Anterior cervical discectomy/arthrodesis C6-C7; 3. Intervertebral fixative C5-C6, C6-C7; 4. Harvesting of bone graft for arthrodesis, same incision for Cervical stenosis C5-C6, C6-C7 by Mansoor Ratliff M.D. at [facility] 06/30/2012. 12Initial [place] Back Pain Disability Scale: 79 on 08/07/2009 [...] Care Team Personnel Name: Violet Logan Position: [facility] Onco RN Member Role: Primary Care Nurse Name: Alma Delia Alonzo MD Position: [facility] Physician - Oncology Member Role: Lifetime Consulting Physician Name: Sharon Lawson Position: [facility] Outreach Member Role: Lifetime Consulting Physician Name: Aaliyah Lawson RN Position: [facility] RN Member Role: Primary Care Nurse Name: Catherine Ingram RN Position: [facility] RN Member Role: Primary Care Nurse Name: Angelo Finley RN Position: [facility] RN Member Role: Primary Care Nurse Name: Ayleen Del Real RN Position: [facility] RN Member Role: Primary Care Nurse Name: Jose aMhmood MD Position: [facility] Physician - Primary Care Member Role: PCP Address: [address] [place] [address] Telecom: Name: Clem Ortega Position: [facility] Office Staff Member Role: Primary Care Nurse Name: Loreta (Bayaubree) Sulma Position: [facility] satellite tv installer Member Role: Sustainment Logistics Analyst Name: Flora Balderas RN Position: [facility] RN Member Role: Primary Care Nurse Name: Kirti Aguilera RN Position: [facility] Onco RN Member Role: Primary Care Nurse Name: Jose Fuentes RN Position: [facility] RN Member Role: Primary Care Nurse Name: [place] Romero RN Position: [facility] Onco RN Member Role: Primary Care Nurse Name: Doretha Astudillo RN Position: [facility] Onco RN Member Role: Primary Care Nurse Name: Jayce Rodney RN Position: [facility] Onco RN Member Role: Primary Care Nurse Name: Magalys Spain RN Position: [facility] RN Member Role: Primary Care Nurse Name: Marianna Alaniz RN Position: [facility] RN Member Role: Primary Care Nurse Name: Ramiro De La Torre RN Position: [facility] RN Member Role: Primary Care Nurse Name: Eduardo Monae NP Position: [facility] Associate Professional Member Role: Primary Care Nurse Address: [address] [place] [address] Telecom: Name: Ade Penn RN Position: [facility] ED RN W/OE and Tasks Member Role: Primary Care Nurse Name: Guerda Leung RN Position: [facility] AMB Nurse Member Role: Primary Care Nurse Name: Karime Singer RN Position: [facility] Onco RN Member Role: Primary Care Nurse Name: Cheryl Latif RN Position: [facility] Hospital Rn Palliative Care Member Role: Primary Care Nurse Name: Kristi Browning RN, I Position: [facility] RN Member Role: Primary Care Nurse Care [...]
--- OUTSIDE RECORDS SUMMARY | 2024-11-05 15:15 | XMS_ITS | Continuity of Care Document ---
Author Organization [facility] Andres Razo Prudencio lt Address [address] [place] [address]- Care Team Providers Care Instrument And Electrical Technician Name Role Phone Ela BENTLEY, Jose Springer Primary Care Physician [phone] [place] [facility] [place]07/24 - 10/07/24 [facility] Andres Reavesley Adult [address] [place] [address]- Encounter Type: Triage Allergies, Adverse Reactions, Alerts [...] (oldterm) 1 06/04/24 Recor ded SARS-CoV-2 mRNA (immyvwr-ablw-msvma) vax 2 06/04/24 Recorded SARS-CoV-2 mRNA (zrcmrfv-dfhk-nzwvo) vax 12/07/21 Recorded SARS-CoV-2(COVID-19)mRNA-LNP vac(zgt179) 3 08/15/23 Given influenza virus vaccine, inactivated [...] Recorded zoster vaccine, inactivated 6 09/22/22 Recorded [id number] 12y+ bivalent booster vax 05/30/22 Recorded SARS-CoV-2 (COVID-19) mRNA BNT-162b2 vac 06/16/21 Recorded SARS-CoV-2 (COVID-19) mRNA BNT-162b2 vac 12/13/20 Recorded SARS-CoV-2 (COVID-19) mRNA BNT-162b2 vac 11/21/20 Recorded pneumococcal 23-valent vaccine 03/17/18 Given pneumococcal 13-valent vaccine 05/24/16 Given tetanus/diphtheria/pertussis, acel(Tdap) 12/06/15 Given 1Result Comment: DALIA Lieberman 2Result Comment: [facility] 3Result Comment: [facility][note 3] [id number] 4Result Comment: [facility]: [id number] Screening checklist was completed. 5Location History: [facility] 6Result Comment: [facility] Medications [...] Basarnol Corrales 100 units/mL subcutaneous solution = 76 units, Subcutaneous Infusion, Daily, Increase 2 units every 3 days until FBS < 130 per PCP Max dose 100 units qday Replaces Tresiba, # 10 each, 5 Refills, Maintenance, 09/07/24 8:42:00 AM EST, [facility], Partial fill upon patient request if the prescription is for a schedule II opioid drug., 166, cm, 09/06/24 13:27:00 EST, Height, 111.3, kg, 09/06/24 11:46:00 EST, Dry Weight Start Date: 09/07/24 Status: Ordered Quantity: 10.0 Unit: each Repeat number: 6 Breztri Aerosphere inhalation aerosol 2 inhalation, Inhalation, 2 times a day, bid per hotel registration clerk, 0 Refills, Maintenance, 08/10/24 11:00:00 AM EST, [...] Tot. Refills 11, Maintenance, CPAP MASK Dx PATRIICO G47.33, 01/12/24 1:18:00 PM EDT, Supply Start [...] 28.0 Unit: tablet Repeat number: 1 Pen [place], 31 G x 5 mm BD Ultra [...] 5 Refills, Maintenance, 09/29/24 10:46:00 AM EST, [facility] # 50, 166, cm, 09/06/24 13:27:00 EST, Height, 111.3, kg, 09/06/24 11:46:00 EST, Dry Weight Start Date: 09/29/24 Status: Ordered Quantity: 28.0 Unit: tablet Repeat number: 6 Trelegy Ellipta 200 mcg-62.5 mcg-25 mcg/inh inhalation powder 1 inhalation, Inhalation, Daily, at the same time every day, # 1 each, 5 Refills, Maintenance, 10/05/24 1:23:00 PM EST, Powder, [facility] # 50, Partial fill upon patient [...] between 1980 and 1988 5Left 2016 6Right 18181; repeat 2025 1. Left shoulder arthroscopic rotator cuff repair 2. Left shoulder arthroscopic subacromial decompression 3. Left shoulder arthroscopic distal clavicle excision for 1. Left shoulder rotatorcuff tear 2. Left shoulder subacromial impingement syndrome 3. Left shoulder acromioclavicular joint arthropathy by Byron Corrales M.D. at [facility]. 9colo 2015 10Fatty Liver 111. Anterior cervical discectomy/arthrodesis C5-C6; 2. Anterior cervical discectomy/arthrodesis C6-C7; 3. Intervertebral fixative C5-C6, C6-C7; 4. Harvesting of bone graft for arthrodesis, same incision for Cervical stenosis C5-C6, C6-C7 by Mansoor Ratliff M.D. at [facility] 06/30/2012. 12Initial [place] Back Pain Disability Scale: 79 on 08/07/2009 [...] Care Team Personnel Name: Violet Logan Position: [facility] Onco RN Member Role: Primary Care Nurse Name: Alma Delia Alonzo MD Position: [facility] Physician - Oncology Member Role: Lifetime Consulting Physician Name: Sharon Lawson Position: [facility] Outreach Member Role: Lifetime Consulting Physician Name: Aaliyah Lawson RN Position: [facility] RN Member Role: Primary Care Nurse Name: Catherine Ingram RN Position: [facility] Hospital Bench Precision Assembler Member Role: Primary Care Nurse Name: Angelo Finley RN Position: [facility] RN Member Role: Primary Care Nurse Name: Ayleen Del Real RN Position: [facility] RN Member Role: Primary Care Nurse Name: Jose Mahmood MD Position: [facility] Physician - Primary Care Member Role: PCP Address: [address] [place] [id number] Telecom: Name: Clem Ortega Position: [facility] Office Staff Member Role: Primary Care Nurse Name: Loreta (Baycare) Sulma Position: [facility] pad assembler Member Role: Building Consultant Name: Flora Balderas RN Position: [facility] RN Member Role: Primary Care Nurse Name: Kirti Aguilera RN Position: [facility] Onco RN Member Role: Primary Care Nurse Name: Jose Fuentes RN Position: [facility] ED RN W/OE and Tasks Member Role: Primary Care Nurse Name: [place] Romero RN Position: [facility] Onco RN Member Role: Primary Care Nurse Name: Doretha Astudillo RN Position: [facility] Onco RN Member Role: Primary Care Nurse Name: Cecille Parra RN Position: [facility] RN Member Role: Primary Care Nurse Name: Jayce Rodney RN Position: [facility] Onco RN Member Role: Primary Care Nurse Name: Magalys Spain RN Position: [facility] RN Member Role: Primary Care Nurse Name: Marianna Alaniz RN Position: [facility] RN Member Role: Primary Care Nurse Name: Ramiro De La Torre RN Position: [facility] RN Member Role: Primary Care Nurse Name: Eduardo Monae NP Position: [facility] Associate Professional Member Role: Primary Care Nurse Address: [address] [place] [address] Telecom: Name: Ade Penn RN Position: [facility] ED RN W/OE and Tasks Member Role: Primary Care Nurse Name: Guerda Leung RN Position: [facility] AMB Nurse Member Role: Primary Care Nurse Name: Karime Singer RN Position: [facility] Onco RN Member Role: Primary Care Nurse Name: Cheryl Latif RN Position: [facility] Hospital Bench Precision Assembler Member Role: Primary Care Nurse Name: Kristi Browning RN, I Position: [facility] RN Member Role: Primary Care [...]
--- OUTSIDE RECORDS SUMMARY | 2024-11-05 15:15 | XMS_ITS ---
Author Organization [facility] Address [address] [place] [address] Care Team Providers Care Tomato Paste Maker Name Role Phone Jose Mahmood MD Primary Care Provider Nelda Louise [phone] Encounters Encounter Location Date Provider Diagnosis [address] [address] 07/21/2024 Nelda Dumont Plan Of Treatment Next Appt Details Provider Name:Mackenzie barnard, 2025 03:15:00 PM, [address] [place], [address], Progress Notes * Olivia DAVISh LDOB:1949 (74 yo F)Acc No.[id number]:07/21/2024 Progress Note Patient:?Alysha DAVIS Provider:?Nelda Dumont DPM :1950???Age:74 Y???Sex:Female D ate:07/21/2024 Address:[address] [place] [address], [place], [place] Pcp:Jose Mahmood MD Subjective: * Chief Complaints: [...] DPM Date:?1 09/20/2023 Generated for Mulugeta gudino/Josi/Bharat on:?11/05/2024 03:14 PM EDT
--- OUTSIDE RECORDS SUMMARY | 2024-11-05 15:15 | XMS_ITS | Continuity of Care Document ---
Author Organization [facility] Prudencio lt Address [address] [place] [id number]- Care Team Providers Care Centrifugal Separator Name Role Phone Ela BENTLEY, Jose Springer Primary Care Physician [phone] Encounter [facility] Date(s): 09/29/24 - 10/29/24 [facility] Adult [address] [place] [address]- Encounter Type: Triage Allergies, Adverse Reactions, Alerts [...] (oldterm) 1 06/04/24 Recor ded SARS-CoV-2 mRNA (zlvbpra-tpqj-qzslc) vax 2 06/04/24 Recorded SARS-CoV-2 mRNA (vxlrcvr-nktd-wmtfb) vax 12/07/21 Recorded SARS-CoV-2(COVID-19)mRNA-LNP vac(uwq692) 3 08/15/23 Given influenza virus vaccine, inactivated [...] Recorded zoster vaccine, inactivated 6 09/22/22 Recorded SMOV-TxH-0rNZV 12y+ bivalent booster vax 05/30/22 Recorded SARS-CoV-2 (COVID-19) mRNA BNT-162b2 vac 06/16/21 Recorded SARS-CoV-2 (COVID-19) mRNA BNT-162b2 vac 12/13/20 Recorded SARS-CoV-2 (COVID-19) mRNA BNT-162b2 vac 11/21/20 Recorded pneumococcal 23-valent vaccine 03/17/18 Given pneumococcal 13-valent vaccine 05/24/16 Given tetanus/diphtheria/pertussis, acel(Tdap) 12/06/15 Given 1Result Comment: [facility] 2Result Comment: [facility] 3Result Comment: [facility] [id number] 4Result Comment: [facility]: [id number] Screening checklist was completed. 5Location History: [facility] 6Result Comment: [facility] Medications acetaminophen-oxyCODONE [...] Refills, Maintenance, 06/24/24 1:40:00 PM EDT, [facility], 25, 2 puffs Inhalation Every 6 hours,PRN: NEEDED FOR WHEEZING, 166, cm, 06/18/24 6:52:00 EDT, Height, 117, kg, 06/18/24 6:52:00 EDT, Dry Weight Start Date: 06/24/24 Status: Ordered Quantity: 8.5 Unit: g Repeat number: 6 allopurinol 300 mg oral tablet 1, tablet, By Mouth, Daily, # 30 tablet, Refills 5, Maintenance, 01/14/24 1:50:00 PM EDT, Route to Pharmacy Electronically, [facility] # [facility], 166, cm, 12/22/23 15:01:00 EDT, Height, 109.6, kg, 12/03/23 14:37:00 EDT, Dry Weight Start Date: 01/14/24 Status: Ordered Quantity: 30.0 Unit: tablet Repeat number: 1 barium sulfate 2% oral suspension See Instructions, 2 premix 450ml bottles, take as directed for CT scan., # 900 mL, 0 Refills, Maintenance, 09/10/24 3:20:00 PM EST, [facility] # [facility], Partial fill upon patient request if the prescription is for a schedule II opioid drug., 2 premix 450ml bottles, take as directed for CT scan., 166, cm, 09/06/24 13:27:00 EST, Height, 111.3, kg, 09/06/24 11:46:00 EST, Dry Weight Start Date: 09/10/24 Status: Ordered Quantity: 900.0 Unit: mL Repeat number: 1 Basaglanyi KwomidPen 100 units/mL subcutaneous solution = 80 units, Subcutaneous Infusion, Daily, Increase 2 units every 3 days until FBS < 130 per PCP Max dose 100 units qday Replaces Tresiba, # 10 each, 5 Refills, Maintenance, 09/07/24 8:42:00 AM EST, [facility] # [facility], Partial fill upon patient request if the prescription is for a schedule II opioid drug., 166, cm, 09/06/24 13:27:00 EST, Height, 111.3, kg, 09/06/24 11:46:00 EST, Dry Weight Start Date: 09/07/24 Status: Ordered Quantity: 10.0 Unit: each Repeat number: 6 Breztri Aerosphere inhalation aerosol 2 inhalation, Inhalation, 2 times a day, bid per cake maker, 0 Refills, Maintenance, 08/10/24 11:00:00 AM EST, [...] PM EST, Route to Pharmacy Electronically, [facility], 166, cm, [...] Refills, Maintenance, 09/06/24 1:53:00 PM EST, [facility] # [facility], 166, cm, 09/06/24 13:27:00 EST, Height, 111.3, kg, 09/06/24 11:46:00 EST, Dry Weight Start Date: 09/06/24 Status: Ordered Quantity: 180.0 Unit: tablet Repeat number: 2 losartan 100 mg oral tablet 1 tablet, By Mouth, Daily, # 30 tablet, 5 Refills, Maintenance, 07/13/24 2:49:00 PM EST, [facility] # [facility], 166, cm, 07/12/24 13:45:00 EST, Height, 114.7, kg, 07/12/24 13:45:00 EST, Dry Weight Start Date: 07/13/24 Status: Ordered Quantity: 30.0 Unit: tablet Repeat number: 1 Metoprolol Succinate ER 25 mg oral tablet, extended release 1, tablet, By Mouth, Daily, # 90 tablet, Refills 1, Tot. Refills 1, Maintenance, 1/13/25 1:53:00 PMEST, Route to Pharmacy Electronically, [facility], 166, cm, [...] Required Details, Route to Pharmacy Electronically, [facility] # [facility], 166, cm, 05/03/24 13:27:00 EDT, Height, 111.6, kg, 05/03/24 13:27:00 EDT, Dry Weight Start Date: 05/19/24 Status: Ordered Quantity: 28.0 Unit: tablet Repeat number: 1 Pen [place], 31 G x 5 mm BD Ultra [...] 5 Refills, Maintenance, 09/29/24 10:46:00 AM EST, [facility] # 50, 166, cm, 09/06/24 13:27:00 EST, Height, 111.3, kg, 09/06/24 11:46:00 EST, Dry Weight Start Date: 09/29/24 Status: Ordered Quantity: 28.0 Unit: tablet Repeat number: 6 Trelegy Ellipta 200 mcg-62.5 mcg-25 mcg/inh inhalation powder 1 inhalation, Inhalation, Daily, at the same time every day, # 1 each, 5 Refills, Maintenance, 10/05/24 1:23:00 PM EST, Powder, [facility] # 50, Partial fill upon patient [...] between 1980 and 1988 5Left 2016 6Right 32332; repeat 2025 1. Left shoulder arthroscopic rotator cuff repair 2. Left shoulder arthroscopic subacromial decompression 3. Left shoulder arthroscopic distal clavicle excision for 1. Left shoulder rotatorcuff tear 2. Left shoulder subacromial impingement syndrome 3. Left shoulder acromioclavicular joint arthropathy by Byron Corrales M.D. at [facility]. 9colo 2015 10Fatty Liver 111. Anterior cervical discectomy/arthrodesis C5-C6; 2. Anterior cervical discectomy/arthrodesis C6-C7; 3. Intervertebral fixative C5-C6, C6-C7; 4. Harvesting of bone graft for arthrodesis, same incision for Cervical stenosis C5-C6, C6-C7 by Mansoor Ratliff M.D. at [facility] 06/30/2012. 12Initial [place] Back Pain Disability Scale: 79 on [...] Met [facility] spinal stimul[facility] removed vs keeping it Start Date:04/29/23 End Date:07/29/23 Status:Met Progression:Met Patient Care team information Care Team Personnel Name: Violet Logan Position: [facility] Onco RN Member Role: Primary Care Nurse Name: Alma Delia Alonzo MD Position: [facility] Physician - Oncology Member Role: Lifetime Consulting Physician Name: Sharon Lawson Position: [facility] Outreach Member Role: Lifetime Consulting Physician Name: Aaliyah Lawson RN Position: [facility] RN Member Role: Primary Care Nurse Name: Catherine Ingram RN Position: [facility] Hospital Research Executive Member Role: Primary Care Nurse Name: Angelo Finley RN Position: [facility] RN Member Role: Primary Care Nurse Name: Ayleen Del Real RN Position: [facility] RN Member Role: Primary Care Nurse Name: Jose Mahmood MD Position: [facility] Physician - Primary Care Member Role: PCP Address: [address] [place] [id number] Telecom: Name: Clem Ortega Position: [facility] Office Staff Member Role: Primary Care Nurse Name: Loreta ([facility]) Sulma Position: [facility] detention deputy Member Role: [employer] Officer Name: Flora Balderas RN Position: [facility] RN Member Role: Primary Care Nurse Name: Kirti Aguilera RN Position: [facility] Onco RN Member Role: Primary Care Nurse Name: Jose Fuentes RN Position: [facility] RN Member Role: Primary Care Nurse Name: Shelby Romero RN Position: [facility] Onco RN Member Role: Primary Care Nurse Name: Doretha Astudillo RN Position: [facility] Onco RN Member Role: Primary Care Nurse Name: Jayce Rodney RN Position: [facility] Onco RN Member Role: Primary Care Nurse Name: Magalys Spain RN Position: [facility] RN Member Role: Primary Care Nurse Name: Marianna Alaniz RN Position: [facility] RN Member Role: Primary Care Nurse Name: Ramiro De La Torre RN Position: [facility] RN Member Role: Primary Care Nurse Name: Eduardo Monae NP Position: [facility] Associate Professional Member Role: Primary Care Nurse Address: [address] [place] [address] Telecom: Name: Ade Penn RN Position: [facility] ED RN W/OE and Tasks Member Role: Primary Care Nurse Name: Guerda Leung RN Position: [facility] AMB Nurse Member Role: Primary Care Nurse Name: Karime Singer RN Position: [facility] Onco RN Member Role: Primary Care Nurse Name: Cheryl Latif RN Position: [facility] Hospital Research Executive Member Role: Primary Care Nurse Name: Kristi Browning RN, I Position: [facility] RN Member Role: Primary Care Nurse Care Team Related Persons Name: MADHU JAFFE Name: SHOBHA MORRISON Name: LETTY JIMENEZ Insurance Providers Guarantor name: FLORENCE JANNIE Health Plan Information #: 1 Payer: MEDICARE PART B OUTPT Member Number: NA Policy Number: NA Group Number: NA Health Plan Information #: 2 Payer: MEDEX Member Number: NA Policy Number: NA Group Number: NA Health Plan Information #: 3 Payer: [place] Member Number: NA Policy Number: NA Group Number: NA
== END 2024-11-05 14:40 | disposition home or self-care (01) ==
LOC: HO.HGI 13:40
PROVIDERS: PCP Internal Medicine; Visit Provider Internal Medicine
DX: R79.89 Other specified abnormal findings of blood chemistry (principal); R16.0 Hepatomegaly, not elsewhere classified; D3A.00 Benign carcinoid tumor of unspecified site; D50.9 Iron deficiency anemia, unspecified
CPT/HCPCS: 99214

== ENCOUNTER → 2024-11-05 13:39 | Outpatient (BNVA) | payer MEDICARE, SELFPAY | PROVIDERS: PCP Internal Medicine; Visit Provider Internal Medicine | DX: R79.89 Other specified abnormal findings of blood chemistry (principal); R16.0 Hepatomegaly, not elsewhere classified; D3A.00 Benign carcinoid tumor of unspecified site; D50.9 Iron deficiency anemia, unspecified | CPT/HCPCS: 99212 ==

== ENCOUNTER 2024-12-22 13:31 | Outpatient (AMB) | payer MEDICARE, SELFPAY ==
--- NOTE | 2024-12-22 13:34 | A.OFFVIS_ITS ---
Vital Signs 3 12/22/24 13:37 Height 5 ft 5 in Weight 238 lb 1.588 oz BMI 39.6 BP 164/72 H Blood Pressure Location Lt brachial Position Sitting Pulse 78 Intake Visit Reasons: 6 week follow up Intake Note: Alysha presents in the office as a 6 week follow up. CC: She states she is just waiting to see what the next step is going to be. 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 Here for elevated LFTs and abnormal imaging of the liver. Pt herself does nt have any symptoms to include abdominal pain, nausea, vomiting. Has good appetite. No unintentional weight loss recently. 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 Sister with HCV due to IVDU - . Has known DM, most recent A1c 7.2. has HLD on rosuvastatin. In terms of recent adrenal met, she was determined to be a high risk for surgical resection and she received stereotactic radiation in June 2024. The adrenal lesion has decreased in size and she has no other evidence of active atypical carcinoid tumor. 11/05/24: Here for follow up. Reports no acute issues. Has intermittent L sided pain which she isnt sure if its post radiation. Results of labs and US reviewed with the pt. Laboratory Tests 10/20/24 10:35 WBC 5.8 Hgb 11.7 L Hct 37.4 Plt Count 214 Sodium 144 Potassium 3.4 Chloride 109 H Carbon Dioxide 25 BUN 11 Creatinine 0.68 Random Glucose 100 Hemoglobin A1c % 7.2 H % Saturation 10 L Ferritin 24 Total Bilirubin 0.3 GGT 102 H AST 55 H ALT 42 H Alkaline Phosphatase 175 H Total Protein 7.2 Sietb-0-Apjnodtvcwo 164 Ceruloplasmin 26 LDL Cholesterol, Calc 59 TSH 1.24 IgG 902 IgA 140 INDER Screen NEGATIVE Anti-Mitochondrial Ab NEGATIVE Anti-Smooth Muscle Ab <20 Tiss Transglutamin IgA <1.0 Daniela/Kid Microsom Ab Int <=20.0 Hepatitis A IgG Ab Nonreactive Hep Bs Antigen Negative Hep Bs Antibody NONREACTIVE Hep B Core Total Ab Nonreactive Hepatitis C Ab (EIA) Nonreactive HIV 1&2 Ab/P24 Ag 4thGn Nonreactive US ABd 10/20 Liver: The right lobe of the liver measures 20 cm in size. The left lobe of the liver measures 20 cm in size. The liver demonstrates normal homogeneous echotexture. There is a 1.2 cm cyst in the right lobe. No intrahepatic biliary ductal dilatation is identified. There is normal hepatopedal flow in the portal vein. Gallbladder and biliary tree: The gallbladder is surgically absent. The common bile duct is normal in caliber measuring 6 mm. 11/23/24: MRI 12/22/24: Here for follow up. Reports occ l sided pain with cramping and burning gets worse when shes constipated. Has black stools since starting PO iron, prior to that no melena or hematochezia. Last colo was > 10 years ago in [facility]. MRI results reviewed - confirms cirrhosis. Spleen enlarged but platelets normal. New pancreas head cyst also noted. Size 1.9 mm. [facility] Medical History Diabetes Surgical History Hx of colonoscopy History of esophagogastroduodenoscopy (EGD) Review of Systems Const All systems reviewed & are unremarkable except as noted in HPI and below Physical Exam Vital Signs: Last Vital Signs Pulse 78 12/22/24 13:37 BP 164/72 H 12/22/24 13:37 BMI result Body Mass Index 39.6 No apparent distress Nonicteric Abdomen soft, nondistended Alert and oriented x3, uses walker to ambulate Assessment & Plan Assessment & Plan (1) Cirrhosis: Code(s): K74.60 - Unspecified cirrhosis of liver Category: Medical (2) Pancreatic cyst: Code(s): K86.2 - Cyst of pancreas Category: Medical (3) LLQ pain: Code(s): R10.32 - Left lower quadrant pain (4) Elevated LFTs: Code(s): R79.89 - Other specified abnormal findings of blood chemistry Category: Medical (5) Hepatomegaly: Code(s): R16.0 - Hepatomegaly, not elsewhere classified (6) Carcinoid tumor: Code(s): D3A.00 - Benign carcinoid tumor of unspecified site Category: Medical (7) Iron deficiency anemia: Code(s): D50.9 - Iron deficiency anemia, unspecified Category: Medical (8) Hepatosplenomegaly: Code(s): R16.2 - Hepatomegaly with splenomegaly, not elsewhere classified Category: Medical Plan 1. Overdue on colo and now also has LLQ pain with mild SERGO. Reviewed colo, pt had unpleasant experience in [facility] > 10 years ago but agreeable to proceeding here. Prefers miralax/gatorade prep. Plan: - [place] to be booked - Pt aware will get clearance from pulm - Miralax prep given with instructions in writing 2. 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 Mild splenomegaly with normal platelets. No varices noted on MRI. Will hold off EGD for now given underlying lung reserve. Plan: - Advised re metabolic risk factor modification including DM control - Weight loss of 10% TBW advised - can elect for low impact exercises such as stationary bike, rowing machine, water exercises etc - US liver in May 2025 due - No evidence of HE or ascites on exam - Low pretest prob of varices as outlined above 3. Panc cyst Size almost 2 cm. This is new since 2017. Reviewed for this size cyst, can proceed with EUS vs repeat MRI 3-6 months. With mutual decision making, have elected to get repeat MRCP in 3 months and if cyst increasing in size, will be referred for EUS. Plan: - MRCP through [place] to be done in February Follow up after colo Orders: Orders 2 MR abdomen wo con 3 Months K86.2 - Cyst of pancreas Medications: New 2 polyethylene glycol 3350 (Miralax) mix in 64 oz of gatorade for colonoscopy prep 238 grams PO ONCE 238 grams 0RF bisacodyl (Dulcolax (bisacodyl)) take for 2 days prior to colo 10 mg (2 x 5 mg) PO BID 2 days 8 tabs 0RF Coding Level of Care Code Est Pt Level 5 (58450) Diagnoses Cirrhosis K74.60 Pancreatic cyst K86.2 LLQ pain R10.32 Elevated LFTs R79.89 Hepatomegaly R16.0 Carcinoid tumor D3A.00 Iron deficiency anemia D50.9 Hepatosplenomegaly R16.2
[2024-12-22 13:37] VITALS: BP 164/72; PULSE 78; BMI 39.6
--- OUTSIDE RECORDS SUMMARY | 2024-12-22 14:49 | XMS_ITS | Patient Health Record ---
[facility] Organization [facility] Address [address] [place] [address] Care Team Providers Care Archives Technician Name Role Phone Ela BENTLEY, Jose Primary Care Provider Unavailada e Nelda Dumont Unavailable [phone] SerranoBrianJosé Unavailable [phone] Mackenzie Cyr Unavailable [phone] Allergies Allergen (clinical drug ingredient) Drug/Non Drug [...] Polyneuropathy due to diabetes mellitus type I (826306127) Type 1 diabetes mellitus with diabetic polyneuropathy (E10.42) Active confirmed Problem Chronic ulcer of foot (849237980) Non-pressure chronic ulcer of other part of left foot with fat layer exposed (L97.522) Active confirmed Problem Localized, primary osteoarthritis of the ankle and/or foot (012801457) Primary osteoarthritis, left ankle and foot (M19.072) Active confirmed Problem Non-pressure chronic ulcer of other part of left foot limited to breakdown of skin (L97.521) Active confirmed Problem Acquired hammer toe of right foot (6221414396845159 ) Other hammer toe(s) (acquired), right foot (M20.41) Active confirmed Problem Acquired hammer toe of left foot (6399255895196889 ) Other hammer toe(s) (acquired), left foot (M20.42) Active confirmed Problem Polyneuropathy due to type 2 diabetes mellitus (777043607) Type 2 diabetes mellitus with diabetic polyneuropathy (E11.42) Active confirmed Vital Signs Blood pressure diastolic 70 mm Hg 10/22/2024 Height 5FT5IN in 10/22/2024 Blood pressure systolic 120 mm Hg 10/22/2024 Weight 244 lbs 10/22/2024 BMI 40.6 kg/m2 10/22/2024 Procedures Procedure Date Ordered Date Performed Result Body Sit e 87225-VYWDFPB NAIL, 6 OR MORE 08/05/2024 N/A 15325-LSME SKIN LESIONS, OVER 4 08/05/2024 N/A Encounters Encounter Location Date Provider Diagnosis [facility] [address] [address] 03/18/2024 José Serrano Tinea unguium B35.1 ; [...] left foot M77.42 and Ingrowing nail L60.0 [facility] [address] [address] 05/20/2024 José Serrano Tinea unguium B35.1 ; [...] left foot M77.42 and Ingrowing nail L60.[address] [address] 08/05/2024 Nelda Dumont Type 2 diabetes mellitus with diabetic polyneuropathy E11.42 and Tinea unguium B35.[address] [address] 10/22/2024 Mackenzie Klarissa Type 2 diabetes mellitus with diabetic polyneuropathy E11.42 and Tinea unguium B35.[address] [address] 06/30/2024 Nelda Dumont Assessments Encounter Date Diagnosis (ICD Code) Assessment Notes Treatment Notes Treatment Clinical Notes Section Notes 03/18/2024 Tinea unguium (ICD-10 - B35.1) 03/18/2024 [...] toe(s) (ICD-10 - M79.674) 03/18/2024 Pain in left toe(s) (ICD-10 - M79.675) 05/20/2024 Pain in left toe(s) (ICD-10 - M79.675) 05/20/2024 Primary osteoarthritis, 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) 03/18/2024 Primary osteoarthritis, 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) 03/18/2024 Other hammer toe(s) (acquired), left foot (ICD-10 - M20.42) 05/20/2024 Other hammer toe(s) (acquired), left foot (ICD-10 - M20.42) 03/18/2024 Other hammer toe(s) (acquired), right foot (ICD-10 - M20.41) 05/20/2024 Other hammer toe(s) (acquired), right foot (ICD-10 - M20.41) 05/20/2024 Plantar fascial fibromatosis (ICD-10 - M72.2) 03/18/2024 Plantar fascial fibromatosis (ICD-10 - M72.2) 03/18/2024 Metatarsalgia, left foot (ICD-10 - M77.42) 05/20/2024 Metatarsalgia, left foot (ICD-10 - M77.42) 03/18/2024 Ingrowing nail (ICD-10 - L60.0) 05/20/2024 Ingrowing nail (ICD-10 - L60.0) Plan Of Treatment Pending Test Test Name Order Date X ray : Foot, left 3V 03/29/2020 85099-HPIVNEA NAIL, 6 OR MORE 08/05/2024 21751-LJTCRUG SKIN/TISSUE 05/29/2023 21261-KGMBMTE SKIN/TISSUE 11/05/2023 12843-DGJX SKIN LESIONS, OVER 4 08/05/20 24 68436-DMEF SKIN LESIONS, OVER 4 08/03/20 20 26081-OOAI SKIN LESIONS, OVER 4 10/18/19 21 21193-XTGR SKIN LESIONS, OVER 4 01/11/20 21 76874-KDFS SKIN LESIONS, OVER 4 03/26/20 21 09255-KSIE SKIN LESIONS, OVER 4 05/31/20 21 05490-YZVW SKIN LESIONS, 2 TO 4 06/28/20 19 10028-YMMY SKIN LESIONS, 2 TO 4 09/22/19 20 96786-FDDO SKIN LESIONS, 2 TO 4 11/24/19 20 82148-FUZC SKIN LESIONS, 2 TO 4 01/26/20 88685-EFAK SKIN LESIONS, 2 TO 4 03/29/20 33719-NQCA SKIN LESIONS, 2 TO 4 06/01/20 Next Appt Details Provider Name:Mackenzie Sherlyn barnard, 2025 03:15:00 PM, [address] [facility], [place], [address], Insurance Providers Payer Name Payer Address Payer Phone Subscriber Number Group Number Insured Name Patient Relationship to Insured Coverage Start Date Coverage End Date Medicare National [facility] [employer] [employer] [address] [place] [address] [id number] Alysha Davis Self - patient is the insured [employer] [address] [place] [address] [id number] Alysah Davis Self - patient is the insured Medical (General) History Medical History History ICD Code Arthritis Cancer Diabetic type ll Gall bladder problems High blood pressure Numbness Reflux ( GERD) Measles Mumps Chicken pox Joint implants/screws Transfusions asthma Neuropathy Surgical History Surgery Date(Month/Year) back surgery L4-5 1979 shattered left ankle 1989 pins removed 1990 gall bladder 2002 kidney procedure 2012 neck plate and screws 2011 right rotator cuff 2013 kidney procedure 2016 [...] Carple tunnel 06/25/2022 Hospitalization History Reason Date(Month/Year) [facility] [place] 10/13/2020
--- OUTSIDE RECORDS SUMMARY | 2024-12-22 14:50 | XMS_ITS ---
Author Organization [facility] Address [address] [place] [address] Care Team Providers Care Cathode Builder Name Role Phone Jose Mahmood MD Primary Care Provider Nelda Louise Unavailable [phone] Allergies Allergen (clinical drug ingredient) Drug/Non Drug [...] Polyneuropathy due to diabetes mellitus type I ([id number]) Type 1 diabetes mellitus with diabetic polyneuropathy (E10.42) Active confirmed Vital Signs Height 5ft 5in in 08/05/2024 Weight 245 lbs 08/05/2024 BMI 40.77 kg/m2 08/05/2024 Procedures Procedure Date Ordered Date Performed Result Body Sit e 28873-CPWATZM NAIL, 6 OR MORE 08/05/2024 N/A 78092-WMYE SKIN LESIONS, OVER 4 08/05/2024 N/A Encounters Encounter Location Date Provider Diagnosis [facility] [place] [address] [place] [address] 08/05/2024 Nelda Dumont Type 2 diabetes mellitus with diabetic polyneuropathy E11.42 and Tinea unguium B35.1 Assessments Encounter Date Diagnosis (ICD Code) Assessment Notes Treatment Notes Treatment Clinical Notes Section Notes 08/05/2024 Type 2 diabetes mellitus with diabetic polyneuropathy (ICD-10 - E11.42) 08/05/2024 Tinea unguium (ICD-10 - B35.1) Plan Of Treatment Pending Test Test Name Order Date 11982-YZIWCPG NAIL, 6 OR MORE 08/05/2024 33786-FJCR SKIN LESIONS, OVER 4 08/05/20 24 Next Appt Details Follow Up: prn, Reason: Provider Name:Mackenzie Barnard Vaibhav barnard, 2025 03:15:00 PM, [address] [place] [address], [phone], Procedure Notes * Category Sub-Category Detail Notes [...] use of a nail nipper and/or dremel-type die grinder, to a more viable healthy nail [...] to maintain effectiveness in symptomatic relief - 33730 Keratoma Treatment Parring or Cutting o f [...] instrumentation by the physician of record - 00498 Progress Notes * Alysha DAVIS LDOB:1949 (74 yo F)Acc No.[id number]:08/05/2024 Progress Note Patient:Alysha SANTANA Provider:?Nelda Dumont DPM :1950???Age:74 Y???Sex:Female D ate:08/05/2024 Address:[address] [place], [place] [id number] Pcp:Jose Mahmood MD Subjective: * Chief Complaints: [...] cuff 2013kidney procedure 2016xecptic 2016left kidney removed 38795 back surgeries 2017right upper lung removed 2017bone growth removed upper and lower jaw 2019biopsy of chest 2019right hand carpal tunnel 2019porta cath 2019chemo radiation 2019Severs antibiotic therapy 2019tens untit placement spinal stem shoulder replacement Carple tunnel 06/25/2022 * Hospitalization/Major Diagno stic Procedure:?[facility] [place]Fall i night stay 10/13/2020 * Family History:?Mother: [...] use of a nail nipper and/or dremel-type die grinder, to a more viable healthy nail [...] to maintain effectiveness in symptomatic relief - 41066.?Keratoma Treatment:?Parring or Cutting of Benign Hyperkeratotic Lesion(s)?(-57) [...] instrumentation by the physician of record - 65472.? * Procedure Codes:?83443 DEBRI DE NAIL, 6 OR MORE, Modifiers: XS 83384 TRIM SKIN LESIONS, OVER 4, Modifiers: XS * Follow Up:?prn * Images: * Sign off status: Completed true * Provider:?Nelda Dumont DPM Date:?1 10/06/2023 Generated for Mulugeta gudino/Josi/Bharat on:?12/22/2024 02:49 PM EDT History and Physical Notes * [...]
--- OUTSIDE RECORDS SUMMARY | 2024-12-22 14:50 | XMS_ITS ---
Author Organization [facility] Address [address] [place] [address] Care Team Providers Care House Mother Name Role Phone Jose Mahmood MD Primary Care Provider UnavailNelda De Jesus Unavailable [phone] Mackenzie Cyr Unavailable [phone] Allergies Allergen (clinical drug ingredient) Drug/Non Drug [...] 025 Encounters Encounter Location Date Provider Diagnosis [facility] [address] [address] 10/22/2024 Mackenzie Cyr Type 2 diabetes mellitus [...] Reason: Provider Name:Mackenzie barnard, 2025 03:15:00 PM, [address] [place] [address], [phone], Procedure Notes * Category Sub-Category Detail Notes [...] use of a nail nipper and/or dremel-type feed grinder, to a more viable healthy nail [...] to maintain effectiveness in symptomatic relief - 28965 Keratoma Treatment Parring or Cutting o f [...] instrumentation by the physician of record - 73756 Progress Notes * Alysha DAVIS LDOB:1949 (74 yo F)Acc No.[id number]:10/22/2024 Progress Note Patient:?Alysha DAVIS Provider:?Mackenzie Cyr DPM :1950???Age:74 Y???Sex:Female D ate:10/22/2024 Address:[address] [place], [place] [id number] Pcp:Jose Mahmood MD Subjective: * Chief Complaints: [...] use of a nail nipper and/or dremel-type feed grinder, to a more viable healthy nail [...] to maintain effectiveness in symptomatic relief - 52522.?Keratoma Treatment:?Parring or Cutting of Benign Hyperkeratotic Lesion(s)?(-56) [...] instrumentation by the physician of record - 88675.? * Procedure Codes:?24248 DEBRI DE NAIL, 6 OR MORE, Modifiers: XS 60904 TRIM SKIN LESIONS, 2 TO 4, Modifiers: XS * Follow Up:?2 Months * Images: * Sign off status: Completed true * Provider:?Mackenzie Cyr DPM Date:? Generated for Mulugeta gudino/Josi/Bharat on:?12/22/2024 02:49 PM [...]
--- OUTSIDE RECORDS SUMMARY | 2024-12-22 14:50 | XMS_ITS ---
Author Organization [facility] Address [address] [place] [address] Care Team Providers Care Carton Packaging Machine Operator Name Role Phone Jose Mahmood MD Primary Care Provider Nelda Louise [phone] Encounters Encounter Location Date Provider Diagnosis [address] [address] 07/21/2024 Nelda Dumont Plan Of Treatment Next Appt Details Provider Name:Mackenzie barnard, 2025 03:15:00 PM, [address] [place], [address], Progress Notes * Olivia DAVISh LDOB:1949 (74 yo F)Acc No.[id number]:07/21/2024 Progress Note Patient:?Alysha DAVIS Provider:?Nelda Dumont DPM :1950???Age:74 Y???Sex:Female D ate:07/21/2024 Address:[address] [place] [address], [place], [place] Pcp:Jose Mahmood MD Subjective: * Chief Complaints: [...] DPM Date:?1 09/20/2023 Generated for Mulugeta gudino/Josi/Bharat on:?12/22/2024 02:49 PM EDT
== END 2024-12-22 14:26 | disposition home or self-care (01) ==
LOC: HO.HGI 13:31
PROVIDERS: PCP Internal Medicine; Visit Provider Internal Medicine
DX: K74.60 Unspecified cirrhosis of liver (principal); K86.2 Cyst of pancreas; R74.01 Elevation of levels of liver transaminase levels; R16.2 Hepatomegaly with splenomegaly, not elsewhere classified; D3A.00 Benign carcinoid tumor of unspecified site; D50.9 Iron deficiency anemia, unspecified
CPT/HCPCS: 99214

== ENCOUNTER → 2024-12-22 13:31 | Outpatient (BNVA) | payer MEDICARE, SELFPAY | PROVIDERS: PCP Internal Medicine; Visit Provider Internal Medicine | DX: K74.60 Unspecified cirrhosis of liver (principal); K86.2 Cyst of pancreas; R10.32 Left lower quadrant pain; R79.89 Other specified abnormal findings of blood chemistry; R16.0 Hepatomegaly, not elsewhere classified; D3A.00 Benign carcinoid tumor of unspecified site; D50.9 Iron deficiency anemia, unspecified; R16.2 Hepatomegaly with splenomegaly, not elsewhere classified | CPT/HCPCS: 99212 ==

== ENCOUNTER 2025-04-07 06:22 | Day surgery (SDC) | payer MEDICARE, SELFPAY ==
--- OUTSIDE RECORDS SUMMARY | 2025-01-11 11:15 | XMS_ITS ---
Author Organization [facility] Address [address] [place] [address] Care Team Providers Care Disease Management Nurse Name Role Phone oJse Mahmood MD Primary Care Provider UnavailNelda De Jesus Unavailable [phone] Mackenzie Cyr Unavailable [phone] Ruelas Encounters Encounter Location Date Provider Diagnosis [address] [address] 2025 Mackenzie Cyr Plan Of Treatment Next Appt Details Provider Name:Mackenzie barnard, 04/01/2025 01:15:00 PM, [address] [place], [address], Progress Notes * Alysha VALDERRAMA LDOB:1949 (75 yo F)Acc No.[id number]:2025 Progress Note Patient: Alysha LARRY Provider: Melanie Cyr DPM :1950 A ge:75 Y S ex:Female Date:2025 Address:[address] [place] [address] Pcp:Jose Mahmood MD Subjective: * Chief Complaints: * [address] Ruelas. * Medical History: Objective: * Vitals: Assessment: Plan: * Treatment: * Images: * The named appointment provid er may or may not be the originator of this progress note, and it is not deemed complete until electronically signed by the appointment provider. Sign off status: Pending * Provider: Melanie Cyr DPM Date: 0 2025 Generated for Mulugeta gudino/Josi/Bharat on: 03/07/2025 04:25 PM EDT
--- OUTSIDE RECORDS SUMMARY | 2025-03-07 16:25 | XMS_ITS | Data Portability ---
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 06/26/2021 We Know From Many Of Our Patients That Covering All Of Their Costs Can Be Difficult At Times. This Can Cause Stress And Impact Health. In The Past Year, Have You Been Unable To Get Any Of The Following When It Was Really Needed? No [email or web address] Information not available 06/26/2021 What Is Your Housing Situation Today? I Have Housing [email or web address] Information not available 06/26/2021 Would You Like Help Connecting To Resources? None [email or web address] Information not available 06/26/2021 How Many Years Have You Smoked Tobacco? 20 Information not available 06/26/2021 Sex: Unknown Functional Status Question Answer Note LastModified by Organizat ion Details LastModified Time Do you use any illicit or recreational drugs? No Information not available 06/26/2021 Do you or have you ever used any other forms of tobacco or nicotine? No [email or web address] Information not available 06/26/2021 What is your level of alcohol consumption? None [email or web address] Information not available 06/26/2021 Mental Status None recorded. Family History Relationship Description Onset Age of this Age Resolved Age Notes LastModified by Organization Details LastModified Time Father Coronary arterioscler osis [email or web address] Not available 2020 12:40:52 Mother Coronary arterioscler osis [email or web address] Not available 2020 12:41:06 Medical History Condition [...] SNOMED-CT Code Diagnosis ICD10 Code Diagnosis Note [id number] RANDI DAVIDSON [facility] [address] [place] [address] 03/25/2020 09:02:55 03/28/2020 09:43:22 Epidermal burn of skin 209858986 T14.8XXA [id number] DAINA DALAL NP [facility] [address] [facility] [address] 03/28/2020 17:45:07 03/29/2020 15:41:19 Epidermal burn of skin 483828554 T14.8XXD [id number] AISHWARYA BORDEN NP [facility] [address] [place] [address] 06/26/2021 12:38:17 07/03/2021 11:31:35 Unintentional weight gain 1077015660 06649 R63.5 improving History of total arthroplasty of left shoulder [id number] 6294875 Z96.612 seven days ago Type 2 toya betes mellitus 23658800 E11.9 Swelling o f bilateral lower limbs 648715379 M79.89 much improved [id number] AISHWARYA BORDEN, ACADEMIC SPECIALIST [facility] - [facility] [address] [place] [address] 08/19/2021 08:35:29 08/23/2021 19:59:40 Viral syndrome 985341657 B34.9 Nausea 916977533 R11.0 Diarrhea 32653995 R19.7 Exposure t o communicable disease 030659230 Z20.822 [id number] Pura Friend, ACADEMIC SPECIALIST [facility] - [facility] [address] [place] [address] 11/29/2021 18:53:22 11/30/2021 11:01:26 Seasonal allergic rhinitis 406148816 J30.2 Cough 08217368 R05.1 [id number] RANDI Mario [facility] - [facility] [address] [place] [address] 01/19/2022 08:24:38 01/24/2022 09:34:39 Pharyngeal candidiasis 896546524 B37.0 Dry cough 28739727 R05.9 Seasonal a llergic rhinitis 472848301 J30.2 Health Concerns Section Related Observation LastModified by Organization Detai ls LastModified Time None Recorded Concern Status LastModified by Organization Details LastModified Time None Recorded Advance Directives Directive N: Payers Insurance Date Sequence Insurance Name Policy Number Policy Mayorga Covered Member ID Mayorga Member ID Guarantor Name 01/18/2022 1 MEDICARE [place]: [facility] Alysha L Pouliot [id number] 2 Alysha Pouliot 11/30/2021 2 [facility] [id number] Alysha Pouliot [id number] Alysha Pouliot 03/25/2020 1 *SELF PAY* Alysha Pouliot [id number] Alysha Pouliot 01/25/2022 2 [facility] [id number] Alysha Pouliot [id number] Alysha Pouliot 01/18/2022 1 MEDICARE [place]: [facility] Alysha Pouliot [id number] Alysha Pouliot 01/25/2022 1 MED[place]ARE [place]: [employer] Alysha Davis [id number] Alysha Davis Notes Date Note Type Note Provider Name and Address Organization Details Recorded Time 03/28/2020 text/html This is a very pleasant 70-year-old female that is known to [facility] but new to this provider. She has a medical history that includes cancer to the lung, esophagus and thyroid, diabetes, hyperlipidemia and hypertension. She had contacted [facility] several days ago after getting hot tea on her hand and she was concerned for burn. At that time there was no blistering and she had run her hand after cold water with some relief. She was instructed by another provider to monitor the area and if there were signs of blistering or infection to call her PCP or [facility] for further evaluation. She tells me that the area has been blistering and she has been trying to keep it clean and has been applying bacitracin ointment to the area. Given that she is a diabetic she wanted the area to be further evaluated again by [facility]. DAINA DALAL, HAYDEN [facility] [address], [place], [address], [place] - [facility] 03/28/2020 19:45:15 06/26/2021 text/html 71 yo [...] visible redness, increased swelling or radiating heat; aquacel DSG is intact. She states she has a ARTISTIC DIRECTOR coming twice per week to help with cleaning, bathing, and post-op she has been doing a little more. She states follow-up appointment orthopedic surgeon on 06/28/21 where part of the discussion will be about setting up PT/OT. Her next PCP appointment is in August,. Patient endorsed she called the [facility] and set-up a ride to her appointment [...] takes OTC stool softener. AISHWARYA BORDEN NP [address] [place] [address], [address], [place] - [facility] 06/26/2021 15:13:40 08/19/2021 text/html [...] waves. AISHWARYA BORDEN NP [address], [place], [address], [place] [facility] 08/19/2021 11:10:15 11/29/2021 text/html 71 year old lela stockton known to but new to provider with [...] Rapid COVID negative Pura Friend NP [address], [place], [address], [place] [facility] 11/29/2021 19:47:03 01/19/2022 text/html [...] other reported sxs today. RANDI Broussard [address] [place], [address], [place] [facility] 01/19/2022 09:49:14 OBGyn Episode No OBEpisode recorded.
--- OUTSIDE RECORDS SUMMARY | 2025-03-07 16:25 | XMS_ITS | Patient Health Record ---
Author Organization [facility] Address [address] [place] [address] Care Team Providers Care Elementary Secretary Name Role Phone Ela BENTLEY, Jose Primary Care Provider Josef Capone [phone] Reason For Referral No Information Plan Of Treatment No Information Insurance Providers Payer Name Payer Address Payer Phone Subscriber Number Group Number Insured Name Patient Relationship to Insured Coverage Start Date Coverage End Date [facility] [address] [facility] [place] [phone] [id number] FLORENCE VALDERRAMA Self - patient is the insured
[2025-04-05 11:25] VITALS: BMI 39.8
--- NOTE | 2025-04-05 13:07 | HO.ANESPROP2 ---
Documented by User: Jackie Stewart NP 04/06/25 12:13 HPI - Anesthesia Eval Consult details Narrative: 75yo F for Colonoscopy Hx DI x 1 >10 years ago r/t small mouth opening for cspine surgery - no issues with DI since and teeth have been extracted Follows [facility] pulne for hx lung ca s/p RULobectomy and PATRICIO (100% compliance with CPAP) - optimized to proceed with colo PMFSH Active Problems Active Problems: All Active Problems Cirrhosis (Acute) Pancreatic cyst (Acute) Iron deficiency anemia (Acute) Hepatosplenomegaly (Acute) Carcinoid tumor (Acute) Elevated LFTs (Acute) Past Medical History Medical History (Updated 04/05/25 @ 11:09 by Florinda Naidu RN) Vertigo Unsteady gait Restless leg syndrome Renal colic Radicular syndrome of upper limbs Radicular syndrome of lower limbs Psychophysiologic insomnia Parotid mass Peptic ulcer Neuropathy Neuralgic pain Nephrolithiasis Neck pain Myofascial pain Multiple joint pain Lung mass Left thyroid nodule Internal hemorrhoid Hypercholesteremia HTN (hypertension) Gout Gastroparesis GERD (gastroesophageal reflux disease) Foot deformity, bilateral Fatty liver Failed back syndrome Ex-cigarette smoker Difficult airway for intubation Depression Sleep apnea Carpal tunnel syndrome Carcinoid bronchial adenoma of right lung Back pain Asthma Allergic rhinitis Diabetes Surgical History Surgical History (Updated 04/07/25 @ 06:56 by Areli Pascal RN) History of cholecystectomy History of tonsillectomy History of fusion of cervical spine S/P insertion of spinal cord stimulator Hx of shoulder surgery History of nephrectomy (~03/11/16) History of lobectomy of lung Hx of chest tube placement Hx of colonoscopy History of esophagogastroduodenoscopy (EGD) Social History Social History Patient Tobacco Use Status: Never used Tobacco Use of substances other than those prescribed or required for medical reasons: Yes Substance Use Type Other:: gummie for pain occasionally Are you DNR?: No Advance Directives: No Advance Directives Information Provided: Yes Patient : No : No Poor oral hygiene: No Meds Allergies Allergy/AdvReac Type Severity Reaction Status Date / Time alcohol (ALCOHOL) Allergy Intermediate RUBBING Verified 04/07/25 06:56 ALCOHOL/ UNKNOWN pollen extracts (POLLEN) Allergy Intermediate HEADACHES Verified 04/07/25 06:56 carisoprodol (From Soma) Allergy Mild HIVES Verified 04/07/25 06:56 metformin (METFORMIN) AdvReac Intermediate DIARRHEA Verified 04/07/25 06:56 erythromycin base AdvReac Unknown Vomiting Verified 04/07/25 06:56 (ERYTHROMYCIN BASE) OYSTERS Allergy Intermediate UNKNOWN Uncoded 04/07/25 06:56 Home Medications ?Medication ?Instructions ?Recorded ?Confirmed ?Last Taken ?Type allopurinol 300 mg tablet 300 mg PO DAILY 10/06/24 04/05/25 Unknown History celecoxib 200 mg capsule (Celebrex) 200 mg PO DAILY 10/06/24 04/05/25 Unknown History furosemide 40 mg tablet 80 mg PO BID 10/06/24 04/05/25 Unknown History glipizide 10 mg tablet 10 mg PO BID 10/06/24 04/05/25 Unknown History losartan 100 mg tablet 100 mg PO DAILY 10/06/24 04/05/25 Unknown History montelukast 10 mg tablet 10 mg PO DAILY 10/06/24 04/05/25 Unknown History rosuvastatin 5 mg tablet 5 mg PO DAILY 10/06/24 04/05/25 Unknown History gabapentin 100 mg capsule 100 mg PO DAILY 11/05/24 04/05/25 Unknown History insulin degludec 200 unit/mL (3 86 unit subcut DAILY 11/05/24 04/05/25 Unknown History mL) subcutaneous pen (Tresiba FlexTouch U-200 insulin) pen needle, diabetic 31 gauge x #1,200 ea 11/05/24 Unknown History 3/16 acetaminophen 325 mg tablet 975 mg PO Q6H PRN Pain 04/05/25 04/05/25 Unknown History albuterol sulfate 90 mcg/actuation 2 puff inhalation QID PRN 04/05/25 04/05/25 Unknown History aerosol inhaler Shortness Of Breath Or Wheezing azelastine 137 mcg (0.1 %) nasal intranasal 04/05/25 Unknown History spray carvedilol 6.25 mg tablet 6.25 mg PO BID 04/05/25 04/05/25 04/07/25 History diazepam 2 mg tablet 2 mg PO BID PRN Anxiety 04/05/25 04/05/25 Unknown History mometasone-formoterol HFA 200 2 puff inhalation BID 04/05/25 04/05/25 Unknown History mcg-5 mcg/actuation aerosol inhaler (Dulera) Exam Height,Weight and Vital Signs: Height 5 ft 5.35 in Weight 109.6 kg Pertinent Lab Results Pertinent Lab Results: CBC and CMP 02/2025 from [facility] WNL Narrative Narrative: ECHO 2023 Summary The left ventricular size is normal. Left ventricular wall thickness is mild to moderately increased. The LV systolic function is vigorous. The left ventricular ejection fraction is 70-75%. There are no definite regional wall motion abnormalities. LV filling pressures are normal. The right ventricle is normal in size. Right ventricular systolic function appears preserved. Comparison Comparison is made to the study of October 05, 2016. RV function appears normal. Assessment and Plan Assessment Anesthesia Assessment: Chart Reviewed Documented by User: Justice Kohli MD 04/07/25 07:21 [facility] Past Medical History Medical History (Updated 04/05/25 @ 11:09 by Florinda Naidu RN) Vertigo Unsteady gait Restless leg syndrome Renal colic Radicular syndrome of upper limbs Radicular syndrome of lower limbs Psychophysiologic insomnia Parotid mass Peptic ulcer Neuropathy Neuralgic pain Nephrolithiasis Neck pain Myofascial pain Multiple joint pain Lung mass Left thyroid nodule Internal hemorrhoid Hypercholesteremia HTN (hypertension) Gout Gastroparesis GERD (gastroesophageal reflux disease) Foot deformity, bilateral Fatty liver Failed back syndrome Ex-cigarette smoker Difficult airway for intubation Depression Sleep apnea Carpal tunnel syndrome Carcinoid bronchial adenoma of right lung Back pain Asthma Allergic rhinitis Diabetes Family History Family history of problems with anesthesia: No Surgical History Surgical History (Updated 04/07/25 @ 06:56 by Areli Pascal RN) History of cholecystectomy History of tonsillectomy History of fusion of cervical spine S/P insertion of spinal cord stimulator Hx of shoulder surgery History of nephrectomy (~03/11/16) History of lobectomy of lung Hx of chest tube placement Hx of colonoscopy History of esophagogastroduodenoscopy (EGD) History of Problems with Anesthesia: No Social History Social History Patient Tobacco Use Status: Never used Tobacco Use of substances other than those prescribed or required for medical reasons: Yes Substance Use Type Other:: gummie for pain occasionally Are you DNR?: No Advance Directives: No Advance Directives Information Provided: Yes Patient : No : No Poor oral hygiene: No Meds Allergies Allergy/AdvReac Type Severity Reaction Status Date / Time alcohol (ALCOHOL) Allergy Intermediate RUBBING Verified 04/07/25 06:56 ALCOHOL/ UNKNOWN pollen extracts (POLLEN) Allergy Intermediate HEADACHES Verified 04/07/25 06:56 carisoprodol (From Soma) Allergy Mild HIVES Verified 04/07/25 06:56 metformin (METFORMIN) AdvReac Intermediate DIARRHEA Verified 04/07/25 06:56 erythromycin base AdvReac Unknown Vomiting Verified 04/07/25 06:56 (ERYTHROMYCIN BASE) OYSTERS Allergy Intermediate UNKNOWN Uncoded 04/07/25 06:56 Home Medications ?Medication ?Instructions ?Recorded ?Confirmed ?Last Taken ?Type allopurinol 300 mg tablet 300 mg PO DAILY 10/06/24 04/05/25 Unknown History celecoxib 200 mg capsule (Celebrex) 200 mg PO DAILY 10/06/24 04/05/25 Unknown History furosemide 40 mg tablet 80 mg PO BID 10/06/24 04/05/25 Unknown History glipizide 10 mg tablet 10 mg PO BID 10/06/24 04/05/25 Unknown History losartan 100 mg tablet 100 mg PO DAILY 10/06/24 04/05/25 Unknown History montelukast 10 mg tablet 10 mg PO DAILY 10/06/24 04/05/25 Unknown History rosuvastatin 5 mg tablet 5 mg PO DAILY 10/06/24 04/05/25 Unknown History gabapentin 100 mg capsule 100 mg PO DAILY 11/05/24 04/05/25 Unknown History insulin degludec 200 unit/mL (3 86 unit subcut DAILY 11/05/24 04/05/25 Unknown History mL) subcutaneous pen (Tresiba FlexTouch U-200 insulin) pen needle, diabetic 31 gauge x #1,200 ea 11/05/24 Unknown History 3/16 acetaminophen 325 mg tablet 975 mg PO Q6H PRN Pain 04/05/25 04/05/25 Unknown History albuterol sulfate 90 mcg/actuation 2 puff inhalation QID PRN 04/05/25 04/05/25 Unknown History aerosol inhaler Shortness Of Breath Or Wheezing azelastine 137 mcg (0.1 %) nasal intranasal 04/05/25 Unknown History spray carvedilol 6.25 mg tablet 6.25 mg PO BID 04/05/25 04/05/25 04/07/25 History diazepam 2 mg tablet 2 mg PO BID PRN Anxiety 04/05/25 04/05/25 Unknown History mometasone-formoterol HFA 200 2 puff inhalation BID 04/05/25 04/05/25 Unknown History mcg-5 mcg/actuation aerosol inhaler (Dulera) Exam Airway Mallampati Class: III TM Dist: >3cm Neck ROM: Full Denture: Upper and Lower Assessment and Plan Assessment Anesthesia Assessment: Anesthesia Plan Discussed Final Anesthetic Review Family History of Problems with Anesthesia: No History of Problems with Anesthesia: No NPO: Yes ASA Class: III Final Preanesthetic Review: No Changes in Pt Med Stat, Meds/Allgs Chart Reviewed, Consent Obtained/Reviewed, Anes Risks/Benef Reviewed and DNR Form (If Appl.) Patient Risk: Intermediate Procedure Risk: Low Anesthetic Plan Disposition: Standard PACU
[2025-04-07 06:47] VITALS: BMI 40.4
--- NOTE | 2025-04-07 07:11 | PC.NURSE ---
right lower flank area. estela from a recent procedure. changed dressing per patients request. 4x4 dry dressing applied. estela intact. and no s/sx of infection noted. another week for the estela to comes out. supplies given to patient.
[2025-04-07 07:30] VITALS: BP 172/82; PULSE 72; RESP 16; TEMP 36.8; O2SAT 94
[2025-04-07] MEDS: Lactated Ringers 1,000 ML 100 ML IVCONT (07:40)
--- NOTE | 2025-04-07 07:43 | MHC.SHP ---
Pre-Procedural Eval Section A - 24 Hr Update-Section A only Date of Service: 04/07/25 Section B - Complete if H&P > 30 days Chief Complaint: Iron deficiency anemia, unspecified Details of Present Illness: Medical History Diabetes Surgical History Hx of colonoscopy History of esophagogastroduodenoscopy (EGD) Present Medications: see Short Stay Collaborative assessment Allergies: Allergies Allergy/AdvReac Type Severity Reaction Status Date / Time alcohol (ALCOHOL) Allergy Intermediate RUBBING Verified 04/07/25 06:56 ALCOHOL/ UNKNOWN pollen extracts (POLLEN) Allergy Intermediate HEADACHES Verified 04/07/25 06:56 carisoprodol (From Soma) Allergy Mild HIVES Verified 04/07/25 06:56 metformin (METFORMIN) AdvReac Intermediate DIARRHEA Verified 04/07/25 06:56 erythromycin base AdvReac Unknown Vomiting Verified 04/07/25 06:56 (ERYTHROMYCIN BASE) OYSTERS Allergy Intermediate UNKNOWN Uncoded 04/07/25 06:56 Review of Systems Review of Systems Comment: Ten point ROS negative Exam Exam Comment: Gen appear: No acute distress HEENT: no icterus Chest: No overt resp distress Abd: soft, nontender, nondistended Psych: Stable affect, answering questions appropriately Neuro: A/Ox3 noted to move all extremities spontaneously Ext: no peripheral edema Plan Diagnosis/Plan: Unchanged I have reviewed the history and physical and performed a pertinent physical examination on my patient. No changes have occurred unless specified. Time Spent With Patient Time: Total time managing care of this patient today ____ minutes.
--- NOTE | 2025-04-07 07:48 | PC.NURSE ---
applied tracy barrow with [facility]. md vogt aware of patients rhythm. ok to proceed
--- NOTE | 2025-04-07 08:45 | P.OPN-COLO_ITS ---
Colonoscopy Operative Note Operative Note Date of Service: 04/07/25 Narrative: Procedure: Colonoscopy Indication: Personal history of polyps, LLQ pain Endoscopist: Gricelda Robledo MD Anesthesia Provider: Dr Justice Kohli Anesthesia type: MAC Instrument: Olympus [id number] Consent: Indication, risks vs benefits, and alternatives were discussed with the patient who gave written informed consent to proceed. EKG, pulse, pulse oximetry and blood pressure were monitored throughout the procedure. Please see anesthesia flowsheet. Procedure: The patient was brought to the procedure room and placed in the left lateral decubitus position. IV medications were administered by the anesthesia provider in attendance. A digital rectal exam was performed which was abnormal due to finding of hemorrhoids. A distal attachment cap was affixed to the tip of the colonoscope which was then inserted through the anus and advanced through the colon to the cecum at 85 cm,and terminal ileum. Appendiceal orifice and ileocecal valve were identified. Mucosa was carefully examined under high definition white light as the instrument was slowly withdrawn in a retrograde panoramic fashion. Retroflexion was performed in rectum. The procedure was not difficult. There were no immediate obvious complications. The quality of the prep was BBPS: 2+2+2 = adequate Withdrawal time 30 minutes. Limitations: No limitations. Findings: Mucosa: Normal to cecum and terminal ileum. The ileocecal valve appeared edema tous and red. Cold forceps biopsies were taken for histology. Cold forceps biopsies were also taken from the right and left side of the colon to rule out microscopic colitis. Protruding lesions: * 1 sessile polyp of size 3 mm in ascending colon. Cold snare polypectomy was performed. The polyp was completely removed and retrieved. * 1 semi-pedunculated polyp of size 10 mm in ascending colon. Hot snare polypectomy was performed. The polyp was completely removed and retrieved. * 2 sessile polyps of size 3-7 mm in descending colon. Cold snare polypectomy was performed. The polyps were completely removed and retrieved. * 1 sessile polyp of size 3 mm in sigmoid colon. Cold snare polypectomy was performed. The polyp was completely removed and retrieved. * 1 pedunculated polyp of size 12 mm in sigmoid colon. Hot snare polypectomy was performed. The polyp was completely removed and retrieved. Endo lee was placed 3 cm DISTAL to the polyp. * 2 sessile polyp of size 2-6 mm in rectum. Cold snare polypectomy was performed. The polyps were completely removed and retrieved. * Large internal hemorrhoids without stigmata of recent bleeding. Excavated lesions: * Severe diverticulosis of sigmoid colon. Impression: 1. Inflamed ileocecal valve (biopsy) 2. Total of 8 polyps removed 3. Diverticulosis 4. External and internal hemorrhoids Recommendations: - Follow path results. - Repeat colonoscopy in 3 years if polyps are adenomas. - Avoid celebrex for 5-7 days post colonoscopy to decrease risk of post polypectomy bleeding with nsaid use.
[2025-04-07 08:53] VITALS: BP 139/64; PULSE 81; RESP 19; TEMP 36.8; O2SAT 95
[2025-04-07 09:08] VITALS: BP 168/80; PULSE 84; RESP 18; TEMP 36.7; O2SAT 95
== END 2025-04-07 09:55 | disposition home or self-care (01) ==
PROVIDERS: PCP Internal Medicine; Visit Provider Internal Medicine
PROC: 0DJD8ZZ Inspection of Lower Intestinal Tract, Via Natural or Artificial Opening Endoscopic (ICD-10-PCS; CPT 45378; principal; 2025-04-07 07:30)
DX: R10.32 Left lower quadrant pain (principal); D12.2 Benign neoplasm of ascending colon; D12.4 Benign neoplasm of descending colon; D12.5 Benign neoplasm of sigmoid colon; K62.1 Rectal polyp; K52.9 Noninfective gastroenteritis and colitis, unspecified; K57.30 Diverticulosis of large intestine without perforation or abscess without bleeding; K64.8 Other hemorrhoids; K64.4 Residual hemorrhoidal skin tags; Z86.0101 Personal history of adenomatous and serrated colon polyps; D50.9 Iron deficiency anemia, unspecified; E11.9 Type 2 diabetes mellitus without complications; K74.60 Unspecified cirrhosis of liver; K86.2 Cyst of pancreas; R16.2 Hepatomegaly with splenomegaly, not elsewhere classified; R79.89 Other specified abnormal findings of blood chemistry
CPT/HCPCS: 45385; 45380; 45381; 88305; J2003; J2704

== ENCOUNTER → 2025-04-07 06:22 | Outpatient (BNV) | payer MEDICARE, SELFPAY | PROVIDERS: PCP Internal Medicine; Visit Provider Internal Medicine | DX: R10.32 Left lower quadrant pain (principal); D12.2 Benign neoplasm of ascending colon; D12.4 Benign neoplasm of descending colon; D12.5 Benign neoplasm of sigmoid colon; D12.8 Benign neoplasm of rectum; K57.30 Diverticulosis of large intestine without perforation or abscess without bleeding; K64.8 Other hemorrhoids | CPT/HCPCS: 45381; 45385 ==

== ENCOUNTER 2025-04-20 12:46 | Outpatient (AMB) | payer MEDICARE, SELFPAY ==
--- OUTSIDE RECORDS SUMMARY | 2025-02-21 11:15 | XMS_ITS ---
Author Organization [facility] Address [address] [place] [address] Care Team Providers Care Compounding Pharmacy Technician Name Role Phone Jose Mahmood MD Primary Care Provider Nelda Louise [phone] REASON FOR VISIT r/s for sooner apt Encounters Encounter Location Date Provider Diagnosis [address] [address] 02/21/2025 Nelda Dumont Plan Of Treatment Next Appt Details Provider Name:Mackenzie barnard, 05/18/2025 10:45:00 AM, [address] [place], [address], Progress Notes * Alysha DAVIS LDOB:1949 (75 yo F)Acc No.[id number]:02/21/2025 Progress Note Patient: Alysha LARRY Provider: Jessica Dumont DPM :1950 A ge:75 Y S ex:Female Date:02/21/2025 Address:[address] [place] [address] Pcp:Jose Mahmood MD Subjective: * Chief Complaints: * 1 . R/s for sooner apt. * Medical History: Objective: * Vitals: Assessment: Plan: * Treatment: * Images: * The named appointment provid er may or may not be the originator of this progress note, and it is not deemed complete until electronically signed by the appointment provider. Sign off status: Pending * Provider: Jessica Dumont DPM Date: 0 02/21/2025 Generated for Mulugtea gudino/Josi/Bharat on: 04/20/2025 01:09 PM EDT
--- OUTSIDE RECORDS SUMMARY | 2025-04-01 09:15 | XMS_ITS ---
Author Organization [facility] Address [address] [place] [address] Care Team Providers Care Assistant Golf Professional Name Role Phone Jose Mahmood MD Primary Care Provider UnavailNelda De Jesus Unavailable [phone] Mackenzie Cyr Unavailable [phone] Medications Medication SIG (Take, Route, Frequency, Duration) Notes Start Date End Date Status Extra Depth Diabetic Shoes with 3 Pair Custom heat-molded multi-density innersoles for 1 year Dx: Active Doxycycline Monohydrate 100 MG 1 capsule Orally Once a day; Duration: 10 days Not-Taking Doxycycline Hyclate 100 MG 1 capsule Ora lly Once a day; Duration: 10 day(s) Not-Taking Prochlorperazine Maleate 10 MG 1 tablet Orally Three times a day; Duration: 30 day(s) Not-Taking Tresiba 100 UNIT/ML as directed Active Brexanolone Not-Taki ng Pantoprazole Sodium 40 MG 1 tablet Orall y Once a day; Duration: 30 day(s) Not-Taking LORazepam 0.5 MG 1 tablet as needed Orally every 6 hrs Not-Taking HYDROcodone-Acetaminophen 5-325 MG 1 tablet as needed Orally every 6 hrs Not-Taking NovoLIN N 100 UNIT/ML as directed Subcutaneous Not-Taking Breztri Aerosphere N ot-Taking Rosuvastatin Calcium 5 MG 1 tablet Orall y Once a day; Duration: 30 day(s) Active Metoprolol Succinate ER 25 MG 1 tablet Orally Once a day; Duration: 30 day(s) Active albuterol Not-Taking Night Splint AFO - L1930 as directed Not-Taking Losartan Potassium 100 MG 1 tablet Orall y Once a day; Duration: 30 day(s) Active Gabapentin 100 MG 4 capsules Orally three times a day Active glipiZIDE ER 10 MG Orally Once a day Active Furosemide Active Allopurinol 300 MG 1 tablet Orally Once a day; Duration: 30 day(s) Active oxyCODONE-Acetaminophen 5-325 MG 1 tablet as needed Orally every 6 hrs Active Montelukast Sodium 10 MG 1 tablet Orally Once a day; Duration: 30 day(s) Active Encounters Encounter Location Date Provider Diagnosis [facility] [place] [address] [place] [address] 04/01/2025 Mackenzie Cyr Plan Of Treatment Next Appt Details Provider Name:Mackenzie barnard, 05/18/2025 10:45:00 AM, [address] [place] [address], [address], Progress Notes * Alysha DAVIS LDOB:1949 (75 yo F)Acc No.[id number]:04/01/2025 Progress Note Patient: Swati REBOLLAR Alysha Melanie Provider: Melanie Cyr DPM :1950 A ge:75 Y S ex:Female Date:04/01/2025 Address:[address] [place], [place] [address] Pcp:Jose Mahmood MD Subjective: * Chief Complaints: * * HPI: A t Risk footcare: Pt States Last PCP Visit: D ate 0 11/23/2024 * Medical History: * Medications: T aking Extra Depth Diabetic Shoes with 3 Pair Custom heat-molded multi-density innersoles for 1 year Dx: , Taking Tresiba 100 UNIT/ML Solution as directed , Taking oxyCODONE-Acetaminophen 5-325 MG Tablet 1 tablet as needed Orally every 6 hrs , Taking Montelukast Sodium 10 MG Tablet 1 tablet Orally Once a day , Taking Allopurinol 300 MG Tablet 1 tablet Orally Once a day , Taking Furosemide , Taking glipiZIDE ER 10 MG Tablet Extended Release 24 Hour Orally Once a day , Taking Gabapentin 100 MG Capsule 4 capsules Orally three times a day , Taking Losartan Potassium 100 MG Tablet 1 tablet Orally Once a day , Taking Metoprolol Succinate ER 25 MG Tablet Extended Release 24 Hour 1 tablet Orally Once a day , Taking Rosuvastatin Calcium 5 MG Tablet 1 tablet Orally Once a day , Not-Taking/PRN Breztri Aerosphere , Not-Taking/PRN albuterol , Not-Taking/PRN Night Splint AFO - L1930 as directed , Not-Taking/PRN Brexanolone , Not-Taking/PRN NovoLIN N 100 UNIT/ML Suspension as directed Subcutaneous , Not-Taking/PRN HYDROcodone-Acetaminophen 5-325 MG Tablet 1 tablet as needed Orally every 6 hrs , Not-Taking/PRN LORazepam 0.5 MG Tablet 1 tablet as needed Orally every 6 hrs , Not-Taking/PRN Pantoprazole Sodium 40 MG Tablet Delayed Release 1 tablet Orally Once a day , Not-Taking/PRN Prochlorperazine Maleate 10 MG Tablet 1 tablet Orally Three times a day , Not-Taking/PRN Doxycycline Hyclate 100 MG Capsule 1 capsule Orally Once a day , Not-Taking/PRN Doxycycline Monohydrate 100 MG Capsule 1 capsule Orally Once a day Objective: * Vitals: Assessment: Plan: * Treatment: * Images: * The named appointment provid er may or may not be the originator of this progress note, and it is not deemed complete until electronically signed by the appointment provider. Sign off status: Pending * Provider: Melanie Cyr DPM Date: 0 04/01/2025 Generated for Mulugeta gudino/Josi/Bharat on: 04/20/2025 01:09 PM EDT History and Physical Notes * HPI (History of Present Illness) Category Sub-Category Detail Notes Category Not es At Risk footcare Pt States Last PCP Visit: Date:
--- OUTSIDE RECORDS SUMMARY | 2025-04-15 23:59 | XMS_ITS | Continuity of Care Document ---
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 Name Role Phone Ela BENTLEY, Jose Springer Primary Care Physician [phone] Encounter [facility] Date(s): 03/16/25 - 04/15/25 [facility] Adult [address] [place] [address]- Encounter Type: Triage Allergies, Adverse Reactions, Alerts [...] (oldterm) 1 06/04/24 Recor ded SARS-CoV-2 mRNA ([id number]) vax 2 06/04/24 Recorded SARS-CoV-2 mRNA ([id number]) vax 12/07/21 Recorded SARS-CoV-2(COVID-19)mRNA-LNP vac(khv539) 3 08/15/23 Given influenza virus vaccine, inactivated [...] Recorded zoster vaccine, inactivated 6 09/22/22 Recorded [id number] 12y+ bivalent booster vax 05/30/22 Recorded SARS-CoV-2 (COVID-19) mRNA BNT-162b2 vac 06/16/21 Recorded SARS-CoV-2 (COVID-19) mRNA BNT-162b2 vac 12/13/20 Recorded SARS-CoV-2 (COVID-19) mRNA BNT-162b2 vac 11/21/20 Recorded pneumococcal 23-valent vaccine 03/17/18 Given pneumococcal 13-valent vaccine 05/24/16 Given tetanus/diphtheria/pertussis, acel(Tdap) 12/06/15 Given 1Result Comment: [facility] 2Result Comment: [facility] 3Result Comment: [facility] [id number] 4Result Comment: [facility]: [id number] Screening checklist was completed. 5Location History: [facility] [...] 5 Refills, Maintenance, 06/24/24 1:40:00 PM EDT, [facility], 25, 2 puffs Inhalation Every 6 hours,PRN: NEEDED FOR WHEEZING, 166, cm, 06/18/24 6:52:00 EDT, Height, 117, kg, 06/18/24 6:52:00 EDT, Dry Weight Start Date: 06/24/24 Status: Ordered Quantity: 8.5 Unit: g Repeat number: 6 allopurinol 300 mg oral tablet 1, tablet, By Mouth, Daily, # 30 tablet, Refills 5, Maintenance, 12/17/24 9:10:00 AM EDT, Route to Pharmacy Electronically, [facility], 166, cm, 12/06/24 9:58:00 EDT, Height, 111.3, kg, 09/06/24 11:46:00 EST, Dry Weight Start Date: 12/17/24 Status: Ordered Quantity: 30.0 Unit: tablet Repeat number: 1 azelastine 137 mcg/inh (0.1%) nasal spray 2 sprays = 274 mcg, Nares, Both, 2 times a day, in each nostril, # 1 each, 6 Refills, Maintenance, 02/02/25 11:04:00 AM EDT, [facility] # [facility], Partial fill upon patient request if the prescription is for a schedule II opioid drug., 2 sprays Nares, Both 2 times a day,Instr:in each nostril, 166, cm, 02/02/25 10:40:00 EDT, Height, 111.3, kg, 09/06/24 11:46:00 EST, Dry Weight Start Date: 02/02/25 Status: Ordered Quantity: 1.0 Unit: each Repeat number: 7 Breztri Aerosphere inhalation aerosol 2 inhalation, Inhalation, 2 times a day, bid per quality associate, 0 Refills, Maintenance, 08/10/24 11:00:00 AM EST, Partial fill upon patient request if the prescription is for a schedule II opioid drug. Start Date: 08/10/24 Status: Ordered Repeat number: 1 carvedilol 25 mg oral tablet 25 mg, 1, tablet, By Mouth, 2 times a day, Replaces 12.5mg bid., # 60 tablet, Refills 0, Tot. Refills 0, Maintenance, 03/10/25 11:05:00 AM EDT, Route to Pharmacy Electronically, [facility] # [facility], Partial fill upon patient request if the prescription is for a schedule II opioid drug., 166, cm, 03/07/25 11:23:00 EDT, Height, 108.9, kg, 03/07/25 11:23:00 EDT, Dry Weight Start Date: 03/10/25 Status: Ordered Quantity: 60.0 Unit: tablet Repeat number: 1 celecoxib 200 mg oral capsule 1 capsule, By Mouth, Daily, # 28 capsule, 11 Refills, Maintenance, 03/24/25 11:37:00 AM EDT, [facility] # [facility], 166, cm, 03/07/25 11:23:00 EDT, Height, 108.9, kg, 03/07/25 11:23:00 EDT, Dry Weight Start Date: 03/24/25 Status: Ordered Quantity: 28.0 Unit: capsule Repeat number: 1 CPAP Equipment See Instructions, # 1 each, [...] Quantity: 2.0 Unit: each Repeat number: 2 diazepam 2 mg oral tablet See Instructions, 1 tablet by mouth 1 hour prior to advanced imaging procedure and then 1 tablet bymouth at time of procedure., # 2 tablet, Refills 0, Tot. Refills 0, Maintenance, 11/16/24 12:06:00 PM EDT, Instructions Replace Required Details, Route to Pharmacy Electronically, [facility] # [facility],Partial fill upon patient request if the prescription is for a schedule II opioid drug., 166, cm, 11/02/24 8:12:00 EDT, Height, 111.3, kg, 09/06/24 11:46:00 EST, Dry Weight Start Date: 11/16/24 Status: Ordered Quantity: 2.0 Unit: tablet Repeat number: 1 Dulera 200 mcg-5 mcg/inh inhalation aerosol 2 puffs, Inhalation, 2 times a day, rinse mouth and throat after use, # 1 each, 11 Refills, Maintenance, 11/15/24 11:57:00 AM EDT, Aerosol, [facility] # [facility], Partial fill upon patient request if the prescription is for a schedule II opioid drug., 2 puffs Inhalation 2 times a day,x30 days,Instr:rinse mouth and throat after use, 166, cm, 11/02/24 8:12:00 EDT, Height, 111.3, kg, 09/06/24 11:46:00 EST, Dry Weight Start Date: 11/15/24 Stop Date: 11/10/25 Status: Ordered Quantity: 1.0 Unit: each Repeat number: 12 ferrous sulfate 324 mg (65 mg elemental iron) oral delayed release tablet 1 tablet = 324 mg, By Mouth, Daily, OTC per GI 11/09/24, # 100 tablet, 0 Refills, Maintenance, 11/10/24 1:11:00 PM EDT, CR Tablet, Partial fill upon patient request if the prescription is for a schedule II opioid drug. Start Date: 11/10/24 Status: Ordered Quantity: 100.0 Unit: tablet Repeat number: 1 Freestyle Lite Lancets See Instructions, # 120 each, Refills 5, Tot. Refills 5, Maintenance, Test blood sugar qid IDDM E11.9, 11/25/22 11:48:00 AM EDT, can give 90 day supply, Compound, 165.1, cm, 10/08/22 11:03:00 EST, Height, 114.9, kg, 10/08/22 11:03:00 EST, Dry Weight Start Date: 11/25/22 Status: Ordered Quantity: 120.0 Unit: each Repeat number: 6 furosemide 40 mg oral tablet 2, tablet, By Mouth, 2 times a day, # 120 tablet, Refills 5, Tot. Refills 5, Maintenance, 02/19/25 8:03:00 PM EDT, Route to Pharmacy Electronically, [facility] # [facility], 166, cm, 02/03/25 10:25:00 EDT, Height, 111.3, kg, 09/06/24 11:46:00 EST, Dry Weight Start Date: 02/19/25 Status: Ordered Quantity: 120.0 Unit: tablet Repeat number: 6 gabapentin 100 mg oral capsule Refills 0, Maintenance, 08/15/23 11:17:00 AM EST, Partial fill upon patient request if the prescription is for a schedule II opioid drug. Start Date: 08/15/23 Status: Ordered Repeat number: 1 glipiZIDE 10 mg oral tablet 1 tablet = 10 mg, By Mouth, Daily, Decreased from 20 mg to 10 mgg daily on 02/18/25, # 90 tablet, 3 Refills, Maintenance, 03/28/25 1:58:00 PM EDT, [facility] # [facility], 166, cm, 03/24/25 12:52:00 EDT, Height, 108.9, kg, 03/07/25 11:23:00 EDT, Dry Weight Start Date: 03/28/25 Status: Ordered Quantity: 90.0 Unit: tablet Repeat number: 4 Incruse Ellipta 62.5 mcg/inh inhalation powder 1 each, Inhalation, Every 24 hours, doses should be taken at least 24 hours apart, # 30 each, 11 Refills, Maintenance, 11/15/24 11:58:00 AM EDT, Powder, [facility] # [facility], Partial fill upon patient request if the prescription is for a schedule II opioid drug., 166, cm, 11/02/24 8:12:00 EDT, Height, 111.3, kg, 09/06/24 11:46:00 EST, Dry Weight Start Date: 11/15/24 Status: Ordered Quantity: 30.0 Unit: each Repeat number: 12 losartan 100 mg oral tablet 1 tablet, By Mouth, Daily, # 30 tablet, 5 Refills, Maintenance, 01/05/25 8:42:00 AM EDT, [facility] # [facility], 166, cm, 12/06/24 9:58:00 EDT, Height, 111.3, kg, 09/06/24 11:46:00 EST, Dry Weight Start Date: 01/05/25 Status: Ordered Quantity: 30.0 Unit: tablet Repeat number: 1 Misc Rx Refills 0, Maintenance, Severe allergy Plus (or any Allergy medicines) up to twice a day as needed,06/15/21 9:48:00 AM EDT, Supply Start Date: 06/15/21 Status: Ordered Repeat number: 1 montelukast 10 mg oral tablet 1, tablet, By Mouth, Daily, # 28 tablet, Refills 5, Maintenance, 04/01/25 10:34:00 PM EDT, Route to Pharmacy Electronically, [facility] # [facility], 166, cm, 03/24/25 12:52:00 EDT, Height, 108.9, kg, 03/07/25 11:23:00 EDT, Dry Weight Start Date: 04/01/25 Status: Ordered Quantity: 28.0 Unit: tablet Repeat number: 1 Pen Tamms, 31 G x 5 mm BD Ultra [...] Daily, # 28 tablet, 5 Refills, Maintenance, 03/16/25 9:18:00 AM EDT, [facility] # [facility], 166, cm, 03/07/25 11:23:00 EDT, Height, 108.9, kg, 03/07/25 11:23:00 EDT, Dry Weight Start Date: 03/16/25 Status: Ordered Quantity: 28.0 Unit: tablet Repeat number: 1 Trelegy Ellipta 200 mcg-62.5 mcg-25 mcg/inh inhalation powder 1 inhalation, Inhalation, Daily, at the same time every day, # 1 each, 5 Refills, Maintenance, 10/05/24 1:23:00 PM EST, Powder, [facility] # [facility], Partial fill upon patient request if the prescription is for a schedule II opioid drug., 1 inhalation Inhalation Daily,x30 days,Instr:at the same time e very day, 166, cm, 09/06/24 13:27:00 EST, Height, 111.3, kg, 09/06/24 11:46:00 EST, Dry Weight Start Date: 10/05/24 Stop Date: 04/03/25 Status: Ordered Quantity: 1.0 Unit: each Repeat number: 6 Tresiba FlexTouch 200 units/mL subcutaneous solution See Instructions, 86 units Subcutaneous Injection Daily, # 15 mL, 6 Refills, Maintenance, 11/01/24 5:16:00 PM EDT, Solution, [facility], Partial fill upon patient request if the prescription is for a schedule II opioid drug., 166, cm, 09/06/24 13:27:00 EST, Height, 111.3, kg, 09/06/24 11:46:00 EST, Dry Weight Start Date: 11/01/24 Status: Ordered Quantity: 15.0 Unit: mL Repeat number: 7 Tylenol 325 mg oral tablet 975 mg, [...] Active Neuropathy of lower extremity Confirmed Active Fatty liver disease, nonalcoholic 11 Confirmed Active PATRICIO on CPAP Confirmed Active Osteopenia Confirmed Active Parotid mass Confirmed 01/2012 Active Psychophysiologic insomnia Confirmed Active Radicular syndrome of lower limbs Confirmed Active Radicular syndrome of upper limbs Confirmed Active Depression, major, recurrent, moderate Confirmed Active Restless leg syndrome Confirmed Active Severe obesity Confirmed Active Shoulder pain Confirmed Active Back spasm Confirmed Active Status post cervical spinal fusion 12 Confirmed 06/30/12 Active Therapy outcome measure 13 Confirmed Active Controlled type 2 diabetes mellitus with diabetic neuropathy, without long-term current use of insulin Confirmed Active Vertigo Confirmed Active 1Metastatic 2EMG R hand 3h/o antidepressant and opioid co-treatment, no h/o total CK>80 4s/p 4 lumbar surgeries between 1980 and 1988 5Left 2016 6Right 61488; repeat 2025 1. Left shoulder arthroscopic rotator cuff repair 2. Left shoulder arthroscopic subacromial decompression 3. Left shoulder arthroscopic distal clavicle excision for 1. Left shoulder rotatorcuff tear 2. Left shoulder subacromial impingement syndrome 3. Left shoulder acromioclavicular joint arthropathy by Byron Corrales M.D. at [facility]. 9colo 2015 10Fatty Liver 11MAFLD/MASH per [facility] 121. Anterior cervical discectomy/arthrodesis C5-C6; 2. Anterior cervical discectomy/arthrodesis C6-C7; 3. Intervertebral fixative C5-C6, C6-C7; 4. Harvesting of bone graft for arthrodesis, same incision for Cervical stenosis C5-C6, C6-C7 by Mansoor Ratliff M.D. at [facility] 06/30/2012. 13Initial [place] Back Pain Disability Scale: 79 on 08/07/2009 Social History Social History Type Response Smoking Status Never (less than 100 in lifetime); Other: PATIENT NEVER SMOKED; entered on: 06/10/24 Sex Sex Representation Female (finding) Goals Complications of Hypertension Avoided Start Date :03/03/25 End Date: Status:Met Progression:Not Met Blood Pressure Maintained Wi thin Provider-Specified Range Start Date:03/03/25 End Date: Status:Met Progression:Not Met Pt will set up daily check ins Start Date: End Date: Status:Met Progression:Not Met Complications of Cancer or Associated Treatment Avoided Start Date:04/20/24 End Date: Status:Met Progression:Not Met Follows Diabetes Self-Management Plan Start Date :07/25/23 End Date:10/24/23 Status:Met Progression:Not Met [facility] vs keeping it Start Date:04/29/23 End Date:07/29/23 Status:Met Progression:Met Patient Care team information Care Team Personnel Name: Violet Logan Position: [facility] Onco RN Member Role: Primary Care Nurse Name: Alma Delia Alonzo MD Position: [facility] Physician - Oncology Member Role: Lifetime Consulting Physician Name: Sharon Lawson Position: [facility] Outreach Member Role: Lifetime Consulting Physician Name: Aaliyah Lawson RN Position: [facility] RN Member Role: Primary Care Nurse Name: Catherine Ingram RN Position: [facility] Hospital Revenue Director Member Role: Primary Care Nurse Name: Angelo Finley RN Position: [facility] RN Member Role: Primary Care Nurse Name: Ayleen Del Real RN Position: [facility] RN Member Role: Primary Care Nurse Name: Jose Mahmood MD Position: [facility] Physician - Primary Care Member Role: PCP Address: [address] [place] [address]- Telecom: Name: Clem Ortega Position: [facility] Office Staff Member Role: Primary Care Nurse Name: Loreta ([employer]) Sulma Position: [facility] senior packaging engineer Member Role: Agricultural Researcher Name: Flora Balderas RN Position: [facility] RN Member Role: Primary Care Nurse Name: Kirti Aguilera RN Position: [facility] Onco RN Member Role: Primary Care Nurse Name: Jose Fuentes RN Position: [facility] RN Member Role: Primary Care Nurse Name: Shelby Romero RN Position: [facility] Onco RN Member Role: Primary Care Nurse Name: Doretha Astudillo RN Position: [facility] Onco RN Member Role: Primary Care Nurse Name: Jayce Rodney RN Position: [facility] Onco RN Member Role: Primary Care Nurse Name: Magalys Spain RN Position: [facility] RN Member Role: Primary Care Nurse Name: Marianna Alaniz RN Position: [facility] RN Member Role: Primary Care Nurse Name: Ramiro De La Torre RN Position: [facility] RN Member Role: Primary Care Nurse Name: Dov MEDICAID SERVICE COORDINATOREduardo Position: [facility] Associate Professional Member Role: Primary Care Nurse Address: [address] [place] [address] Telecom: Name: Ade Penn RN Position: [facility] ED RN W/OE and Tasks Member Role: Primary Care Nurse Name: Guerda Leung RN Position: [facility] AMB Nurse Member Role: Primary Care Nurse Name: Karime Singer RN Position: [facility] Onco RN Member Role: Primary Care Nurse Name: Cheryl Latif RN Position: [facility] Hospital Revenue Director Member Role: Primary Care Nurse Name: Kristi Browning RN, I Position: [facility] RN Member Role: Primary Care Nurse Care Team Related Persons Name: MADHU JAFFE Name: PRINCESHOBHA Name: LETTY JIMENEZ Insurance Providers Guarantor name: FLORENCE GAMBOASanju Health Plan Information #: 1 Payer: MEDICARE B Payer Identifier: Member Number: [id number] Group Number: Subscriber Identifier: [id number] Relationship to Subscriber: self Coverage Type: NA Coverage Verification Date: NA Telecom: NA Address: Health Plan Information #: 2 Payer: [employer] ONLY Payer Identifier: Member Number: [id number] Group Number: Subscriber Identifier: [id number] Relationship to Subscriber: self Coverage Type: Medicare Other Coverage Verification Date: NA Telecom: NA Address: Health Plan Information #: 3 Payer: [facility] [employer] Payer Identifier: Member Number: [id number] Group Number: Subscriber Identifier: [id number] Relationship to Subscriber: self Coverage Type: MEDICAID Coverage Verification Date: NA Telecom: NA Address: NA
--- NOTE | 2025-04-20 12:58 | A.OFFVIS_ITS ---
Vital Signs 3 04/20/25 13:01 Height 5 ft 5 in Weight 245 lb BMI 40.8 BP 131/50 L Blood Pressure Location Lt brachial Position Sitting Pulse 70 Intake Visit Reasons: 4 mo f/u r/s 04/18 Intake Note: Patient follow up for Colonoscopy results and Left lower quadrant pain. Patient cc: constipation on ad off, denies any other GI issues for today visit. Option Trader Required: No Accompanied by: Self / Same As Patient Allergies alcohol (ALCOHOL) Allergy (Intermediate, Verified 04/20/25 12:58) RUBBING ALCOHOL/ UNKNOWN pollen extracts (POLLEN) Allergy (Intermediate, Verified 04/20/25 12:58) HEADACHES carisoprodol (From Soma) Allergy (Mild, Verified 04/20/25 12:58) HIVES metformin (METFORMIN) Adverse Reaction (Intermediate, Verified 04/20/25 12:58) DIARRHEA erythromycin base (ERYTHROMYCIN BASE) Adverse Reaction (Unknown, Verified 04/20/25 12:58) Vomiting OYSTERS Allergy (Intermediate, Uncoded 04/07/25 06:56) UNKNOWN HPI Comments Details: The patient is a 74-year-old woman with a 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 Here for elevated LFTs and abnormal imaging of the liver. Pt herself does nt have any symptoms to include abdominal pain, nausea, vomiting. Has good appetite. No unintentional weight loss recently. 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 Sister with HCV due to IVDU - . Has known DM, most recent A1c 7.2. has HLD on rosuvastatin. In terms of recent adrenal met, she was determined to be a high risk for surgical resection and she received stereotactic radiation in June 2024. The adrenal lesion has decreased in size and she has no other evidence of active atypical carcinoid tumor. 11/05/24: Here for follow up. Reports no acute issues. Has intermittent L sided pain which she isnt sure if its post radiation. Results of labs and US reviewed with the pt. Laboratory Tests 10/20/24 10:35 WBC 5.8 Hgb 11.7 L Hct 37.4 Plt Count 214 Sodium 144 Potassium 3.4 Chloride 109 H Carbon Dioxide 25 BUN 11 Creatinine 0.68 Random Glucose 100 Hemoglobin A1c % 7.2 H % Saturation 10 L Ferritin 24 Total Bilirubin 0.3 GGT 102 H AST 55 H ALT 42 H Alkaline Phosphatase 175 H Total Protein 7.2 Ltjoz-1-Ylzyoxtmury 164 Ceruloplasmin 26 LDL Cholesterol, Calc 59 TSH 1.24 IgG 902 IgA 140 INDER Screen NEGATIVE Anti-Mitochondrial Ab NEGATIVE Anti-Smooth Muscle Ab <20 Tiss Transglutamin IgA <1.0 Daniela/Kid Microsom Ab Int <=20.0 Hepatitis A IgG Ab Nonreactive Hep Bs Antigen Negative Hep Bs Antibody NONREACTIVE Hep B Core Total Ab Nonreactive Hepatitis C Ab (EIA) Nonreactive HIV 1&2 Ab/P24 Ag 4thGn Nonreactive US ABd 10/20 Liver: The right lobe of the liver measures 20 cm in size. The left lobe of the liver measures 20 cm in size. The liver demonstrates normal homogeneous echotexture. There is a 1.2 cm cyst in the right lobe. No intrahepatic biliary ductal dilatation is identified. There is normal hepatopedal flow in the portal vein. Gallbladder and biliary tree: The gallbladder is surgically absent. The common bile duct is normal in caliber measuring 6 mm. 11/23/24: MRI 12/22/24: Here for follow up. Reports occ l sided pain with cramping and burning gets worse when shes constipated. Has black stools since starting PO iron, prior to that no melena or hematochezia. Last colo was > 10 years ago in [facility]. MRI results reviewed - confirms cirrhosis. Spleen enlarged but platelets normal. New pancreas head cyst also noted. Size 1.9 mm. On 03/21/25 @ 17:23 Gricelda Robledo Wrote To Vicki Alex pls let her know that the pancreas cyst had increased by 1 mm in size. We recommend repeat MRI in 6 months. REminder set. On 03/03/25 @ 17:25 Lina Goodson Wrote To Gricelda Robledo MRI report from [facility] . 04/07/25: [place] Impression: 1. Inflamed ileocecal valve (biopsy) 2. Total of 8 polyps removed 3. Diverticulosis 4. External and internal hemorrhoids Path: A. Colon, ascending, polypectomy: Tubular adenoma; negative for high-grade dysplasia. B. Ileocecal valve, biopsy: Ileal mucosa within normal limits; negative for active or chronic ileitis. C. Colon, right, biopsy: Colonic mucosa within normal limits; negative for active, chronic or microscopic colitis. D. Colon, ascending polyp #2, polypectomy: Tubular adenoma, multiple fragments; negative for high- grade dysplasia. E. Colon, left, biopsy: Colonic mucosa within normal limits; negative for active, chronic or microscopic colitis. F. Colon, descending, polypectomy x2: Tubular adenoma (2); negative for high- grade dysplasia. G. Colon, sigmoid #1, polypectomy: Tubular adenoma(1); hyperplastic polyp(1); negative for high- grade dysplasia. H. Colon, sigmoid #2, polypectomy: Tubular adenoma; negative for high-grade dysplasia. I. Rectum, polypectomy x2: Hyperplastic polyp (1). 04/20/25: Here for post colo follow up. Reports no other GI sx. Results of colo and path reviewed. Patient is already aware that she will need a repeat colonoscopy in 3 years for polyp surveillance. She is also aware of the MRI results. Next MRI due Aug 2025. In terms of cirrhosis, MRI with early portal hypertension. Platelets are normal, we will hold off EGD at this time as per baveno criteria. She is working on her diet. However, exercise is a big limitation due to neuropathy. Reviewed aquatic exercises. Can join [employer]. Also reviewed low impact exercise like stationary bike. In terms of anemia, was able to iron pills for only a month before developed severe consitpation. [facility] Medical History (Updated 04/20/25 @ 15:19 by Gricelda Robledo MD) Vertigo Unsteady gait Restless leg syndrome Renal colic Radicular syndrome of upper limbs Radicular syndrome of lower limbs Psychophysiologic insomnia Parotid mass Peptic ulcer Neuropathy Neuralgic pain Nephrolithiasis Neck pain Myofascial pain Multiple joint pain Lung mass Left thyroid nodule Internal hemorrhoid Hypercholesteremia HTN (hypertension) Gout Gastroparesis GERD (gastroesophageal reflux disease) Foot deformity, bilateral Fatty liver Failed back syndrome Ex-cigarette smoker Difficult airway for intubation Depression Sleep apnea Carpal tunnel syndrome Carcinoid bronchial adenoma of right lung Back pain Asthma Allergic rhinitis Diabetes Surgical History History of cholecystectomy History of tonsillectomy History of fusion of cervical spine S/P insertion of spinal cord stimulator Hx of shoulder surgery History of nephrectomy (~03/11/16) History of lobectomy of lung Hx of chest tube placement Hx of colonoscopy History of esophagogastroduodenoscopy (EGD) Social History Comment: patient has chronic back pain, ambulating well to bathroom with walker. Patient Tobacco Use Status: Never used Tobacco Review of Systems Const All systems reviewed & are unremarkable except as noted in HPI and below Physical Exam Exam Exam: No apparent distress Nonicteric Abdomen soft, nondistended Alert and oriented x3, uses walker Vital Signs: Last Vital Signs Pulse 70 04/20/25 13:01 BP 131/50 L 04/20/25 13:01 BMI result Body Mass Index 40.8 Assessment & Plan Assessment & Plan (1) Personal history of colonic polyps: Code(s): Z86.0100 - Personal history of colon polyps, unspecified Category: Medical (2) Cirrhosis: Code(s): K74.60 - Unspecified cirrhosis of liver Category: Medical (3) Pancreatic cyst: Code(s): K86.2 - Cyst of pancreas Category: Medical (4) LLQ pain: Code(s): R10.32 - Left lower quadrant pain (5) Elevated LFTs: Code(s): R79.89 - Other specified abnormal findings of blood chemistry Category: Medical (6) Hepatomegaly: Code(s): R16.0 - Hepatomegaly, not elsewhere classified (7) Carcinoid tumor: Code(s): D3A.00 - Benign carcinoid tumor of unspecified site Category: Medical (8) Iron deficiency anemia: Code(s): D50.9 - Iron deficiency anemia, unspecified Category: Medical (9) Hepatosplenomegaly: Code(s): R16.2 - Hepatomegaly with splenomegaly, not elsewhere classified Category: Medical Plan 1. Personal hx of poylps Reviewed 12/30 polyps were adenoma including 10 mm polyp. Plan: - Will need repeat colo 3 years. 2. Mild SERGO Was unable to tolerate PO iron. Agreeable to infusions. Plan: - Venofer 200 mg IV x 2 doses 3. Elevated LFTs MAFLD/MASH cirrhosis. Mild splenomegaly with normal platelets. No varices noted on MRI. Will hold off EGD for now given underlying lung reserve. Plan: - Advised re metabolic risk factor modification including DM control - Weight loss of 10% TBW advised - can elect for low impact exercises such as stationary bike, rowing machine, water exercises etc - US liver in May 2025 due - since MRI february was without contrast - No evidence of HE or ascites on exam - Low pretest prob of varices as outlined above 4. Panc cyst Panc head cyst is new since 2016. Size increase of 1 mm in 3 months based on MRI november vs february 2025. Pt had a new implant put in Mar 2025 and wonders if can get the next [place] done [place] [facility] [place] was unable to locate the spinal stimulator model number through [employer] directory. Pt will call the rep and confirm model number. Plan: - Repeat MRCP to be done Aug 2025 - at [facility] if stimulator not compatible with [facility] [place] Follow up 6 months Orders: Orders 2 MR abdomen wo con 5 Months K86.2 - Cyst of pancreas Referrals 2 Infusion Center Notification D50.9 - Iron deficiency anemia, unspecified Coding Level of Care Code Est Pt Level 5 (91649) Complex EM visit Add On G2211 Diagnoses Personal history of colonic polyps Z86.0100 Cirrhosis K74.60 Pancreatic cyst K86.2 LLQ pain R10.32 Elevated LFTs R79.89 Hepatomegaly R16.0 Carcinoid tumor D3A.00 Iron deficiency anemia D50.9 Hepatosplenomegaly R16.2
[2025-04-20 13:01] VITALS: BP 131/50; PULSE 70; BMI 40.8
--- OUTSIDE RECORDS SUMMARY | 2025-04-20 13:10 | XMS_ITS | Patient Health Record ---
Author Organization [facility] Address [address] [place] [address] Care Team Providers Care Activity Therapy Specialist Name Role Phone Ela BENTLEY, Jose Primary Care Provider Josef Capone [phone] Reason For Referral No Information Plan Of Treatment No Information Insurance Providers Payer Name Payer Address Payer Phone Subscriber Number Group Number Insured Name Patient Relationship to Insured Coverage Start Date Coverage End Date [facility] [address] [place] [phone] [phone] [id number] FLORENCE VALDERRAMA Self - patient is the insured
--- OUTSIDE RECORDS SUMMARY | 2025-04-20 13:10 | XMS_ITS | Patient Health Record ---
[facility] Organization [facility] Address [address] [place] [address] Care Team Providers Care Coin Machine Service Repairer Name Role Phone Ela BENTLEY, Jose Primary Care Provider Unavailada e Nelda Dumont Unavailable [phone] SerranoBrianJosé Unavailable [phone] Mackenzie Cyr Unavailable [phone] Allergies Allergen (clinical drug ingredient) Drug/Non Drug [...] Lab: Notes/Report: HEMOGLOBIN A1C % (HH) 7.3 HEMOGLOBIN A1C (GLYCOHEMOGLO BIN) Reviewed date:01/18/2025 01:19:34 PM Interpretation: Performing Lab: Notes/Report: HEMOGLOBIN A1C % (HH) 7.2 Reason For Referral No Information Medications Medication SIG (Take, Route, Frequency, Duration) Notes Start Date End Date Status Extra Depth Diabetic Shoes with 3 Pair Custom heat-molded multi-density innersoles for 1 year Dx: Active Breztri Aerosphere N ot-Taking Rosuvastatin Calcium 5 MG 1 tablet Orall y Once a day; Duration: 30 day(s) Active Doxycycline Monohydrate 100 MG 1 capsule Orally Once a day; Duration: 10 days Not-Taking Metoprolol Succinate ER 25 MG 1 tablet Orally Once a day; Duration: 30 day(s) Active Doxycycline Hyclate 100 MG 1 capsule Ora lly Once a day; Duration: 10 day(s) Not-Taking Losartan Potassium 100 MG 1 tablet Orall y Once a day; Duration: 30 day(s) Active Prochlorperazine Maleate 10 MG 1 tablet Orally Three times a day; Duration: 30 day(s) Not-Taking oxyCODONE-Acetaminophen 5-325 MG 1 tablet as needed Orally every 6 hrs Active Tresiba 100 UNIT/ML as directed Active albuterol Not-Taking Montelukast Sodium 10 MG 1 tablet Orally Once a day; Duration: 30 day(s) Active Brexanolone Not-Taki ng Night Splint AFO - L1930 as directed Not-Taking Gabapentin 100 MG 4 capsules Orally three times a day Active Pantoprazole Sodium 40 MG 1 tablet Orall y Once a day; Duration: 30 day(s) Not-Taking glipiZIDE ER 10 MG Orally Once a day Active LORazepam 0.5 MG 1 tablet as needed Orally every 6 hrs Not-Taking Furosemide Active HYDROcodone-Acetaminophen 5-325 MG 1 tablet as needed Orally every 6 hrs Not-Taking Allopurinol 300 MG 1 tablet Orally Once a day; Duration: 30 day(s) Active NovoLIN N 100 UNIT/ML as directed Subcutaneous Not-Taking Immunizations Vaccine Route Administration Date Status Comme nts Influenza Unknown 05/25/2022 Administered Influenza Unknown 07/25/2023 Administered COVID-19 Pfizer BioNTech Vaccine Unknown 01/10/2021 Administered 1st 11/21/20 Social History Tobacco Use: Social History Observation [...] Problem Status W/U Status Risk Notes Problem Type 2 diabetes mellitus with diabetic polyneuropathy (E11.42) Active confirmed Vital Signs Blood pressure diastolic 70 mm Hg 01/18/2025 Height 5ft4in in 01/18/2025 Blood pressure systolic 120 mm Hg 01/18/2025 Weight 245 lbs 01/18/2025 BMI 42.05 kg/m2 01/18/2025 Procedures Procedure Date Ordered Date Performed Result Body Sit e 86905-WKWPMWN NAIL, 6 OR MORE 08/05/2024 N/A 09229-ZPWH SKIN LESIONS, OVER 4 08/05/2024 N/A Encounters Encounter Location Date Provider Diagnosis [address] [address] 05/20/2024 José Serrano Tinea unguium B35.1 ; [...] left foot M77.42 and Ingrowing nail L60.[address] [address] 08/05/2024 Nelda Dumont Type 2 diabetes mellitus with diabetic polyneuropathy E11.42 and Tinea unguium B35.[address] [address] 10/22/2024 Mackenzie Espositoa Type 2 diabetes mellitus with diabetic polyneuropathy E11.42 and Tinea unguium B35.[address] [address] 01/18/2025 Mackenzie Perica Type 2 diabetes mellitus with diabetic polyneuropathy E11.42 ; Tinea unguium B35.1 and Ingrown nail L60.[address] [address] 06/30/2024 [facility] [address] [address] 01/06/2025 Nelda Dumont [address] [place] [address] 01/12/2025 Nelda Dumont [facility] [place] [address] [place] [address] 04/01/2025 Nelda Dumont Assessments Encounter Date Diagnosis (ICD Code) Assessment Notes Treatment Notes Treatment Clinical Notes Section Notes 05/20/2024 Tinea unguium (ICD-10 - B35.1) 05/20/2024 Type 2 diabetes mellitus with diabetic polyneuropathy (ICD-10 - E11.42) 08/05/2024 Type 2 diabetes mellitus with diabetic polyneuropathy (ICD-10 - E11.42) 08/05/2024 Tinea unguium (ICD-10 - B35.1) 10/22/2024 Type 2 diabetes mellitus with diabetic polyneuropathy (ICD-10 - E11.42) 01/18/2025 Type 2 diabetes mellitus with diabetic polyneuropathy (ICD-10 - E11.42) 01/18/2025 Tinea unguium (ICD-10 - B35.1) 01/18/2025 Ingrown nail (ICD-10 - L60.0) 10/22/2024 Tinea unguium (ICD-10 - B35.1) 05/20/2024 Pain in right toe(s) (ICD-10 - M79.674) 05/20/2024 Pain in left toe(s) (ICD-10 - M79.675) 05/20/2024 Primary osteoarthritis, 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) 05/20/2024 Other hammer toe(s) (acquired), left foot (ICD-10 - M20.42) 05/20/2024 Other hammer toe(s) (acquired), right foot (ICD-10 - M20.41) 05/20/2024 Plantar fascial fibromatosis (ICD-10 - M72.2) 05/20/2024 Metatarsalgia, left foot (ICD-10 - M77.42) 05/20/2024 Ingrowing nail (ICD-10 - L60.0) Plan Of Treatment Pending Test Test Name Order Date X ray : Foot, left 3V 03/29/2020 95558-OHTHMXW NAIL, 6 OR MORE 08/05/2024 99192-VQVRVQY SKIN/TISSUE 05/29/2023 03396-OOIRBUA SKIN/TISSUE 11/05/2023 86122-XVXJ SKIN LESIONS, OVER 4 08/05/20 24 10131-GYPU SKIN LESIONS, OVER 4 08/03/20 20 23853-QECT SKIN LESIONS, OVER 4 10/18/19 21 97318-GDAB SKIN LESIONS, OVER 4 01/11/20 21 62178-DKYD SKIN LESIONS, OVER 4 03/26/20 21 67482-OUEZ SKIN LESIONS, OVER 4 05/31/20 21 21725-CLYX SKIN LESIONS, 2 TO 4 06/28/20 66780-IFHK SKIN LESIONS, 2 TO 4 09/22/19 20 74528-YZMM SKIN LESIONS, 2 TO 4 11/24/19 94161-CNFL SKIN LESIONS, 2 TO 4 01/26/20 20 51797-NQVG SKIN LESIONS, 2 TO 4 03/29/20 88711-UPRF SKIN LESIONS, 2 TO 4 06/01/20 Next Appt Details Provider Name:Mackenzie barnard, 05/18/2025 10:45:00 AM, [address] [place], [address], Insurance Providers Payer Name Payer Address Payer Phone Subscriber Number Group Number Insured Name Patient Relationship to Insured Coverage Start Date Coverage End Date Medicare National [employer] [address] [place] [address] [id number] Alysha Davis Self - patient is the insured [employer] [address] [place] [address] [id number] Alysha Davis Self - patient is the [...] Carple tunnel 06/25/2022 Hospitalization History Reason Date(Month/Year) C-Fall i night stay 10/13/2020
== END 2025-04-20 14:00 | disposition home or self-care (01) ==
LOC: HO.HGI 12:46
PROVIDERS: PCP Internal Medicine; Visit Provider Internal Medicine
DX: K74.60 Unspecified cirrhosis of liver (principal); K86.2 Cyst of pancreas; R10.32 Left lower quadrant pain; Z86.0100 Personal history of colon polyps, unspecified; R74.01 Elevation of levels of liver transaminase levels; D3A.00 Benign carcinoid tumor of unspecified site; D50.9 Iron deficiency anemia, unspecified; R16.2 Hepatomegaly with splenomegaly, not elsewhere classified
CPT/HCPCS: 99214; G2211

== ENCOUNTER → 2025-04-20 12:46 | Outpatient (BNVA) | payer MEDICARE, SELFPAY | PROVIDERS: PCP Internal Medicine; Visit Provider Internal Medicine | DX: R16.2 Hepatomegaly with splenomegaly, not elsewhere classified (principal); D3A.090 Benign carcinoid tumor of the bronchus and lung; R79.89 Other specified abnormal findings of blood chemistry; R10.32 Left lower quadrant pain; K86.2 Cyst of pancreas; K74.60 Unspecified cirrhosis of liver; Z86.0100 Personal history of colon polyps, unspecified | CPT/HCPCS: 99212 ==

== ENCOUNTER 2025-05-10 13:00 | Outpatient (RCR) | payer MEDICARE, SELFPAY ==
[2025-05-02 12:45] VITALS: BP 154/60; PULSE 78; RESP 18; TEMP 37.1; O2SAT 98
[2025-05-10 13:01] VITALS: BP 130/47; PULSE 65; RESP 16; TEMP 36.8; O2SAT 94
== END 2025-05-10 13:49 | disposition home or self-care (01) ==
LOC: HO.INF 13:00
PROVIDERS: Visit Provider Internal Medicine
DX: D50.9 Iron deficiency anemia, unspecified (principal)
CPT/HCPCS: 96365; J1756